=== PATIENT | male | born 1945 | race Caucasian/White ===

== ENCOUNTER 2018-11-26 10:14 | Emergency (ER) | payer OTHER, SELFPAY ==
[2018-11-26 10:15] VITALS: BP 156/73; PULSE 82; RESP 16; TEMP 36.5; O2SAT 96
--- NOTE | 2018-11-26 10:35 | DI.RAD_ITS ---
SYMPTOM/DIAGNOSIS: COUGH, FEVER PA AND LATERAL CHEST: No priors. The heart is normal in size. The lungs are clear. The mediastinal structures and pleura appear intact. CONCLUSION: Normal chest.
--- NOTE | 2018-11-26 10:36 | W.ED.GENAD ---
Discharge Plan Disposition Patient Disposition: HOME Condition: Stable Discharge Details Chief Complaint: Urinary Clinical Impression: Acute UTI Primary Care Provider: JenniferLocal ED Provider: Cory Soriano Home Meds and New Rx's Prescriptions: New cephalexin 500 mg tablet 500 mg PO BID 7 Days Qty: 14 RF: 0 Continued cyclobenzaprine 10 MG tablet 10 mg PO TID PRN PRNQty: 30 RF: 0 metoprolol succinate 50 MG tablet extended release 24 hr 100 mg PO DAILY RF: 0 omeprazole 20 MG tablet,delayed release (DR/EC) 20 mg PO DAILY RF: 0 Eliquis 5 mg Tablet 5 mg PO BID RF: 0 diltiazem HCl 180 mg Tablet Extended Release 24 Hr 180 mg PO DAILY RF: 0 Discharge Instructions Instructions: Urinary Tract Infection in Men (ED) Additional Instructions: Follow-up with your primary care provider in 1 week for reassessment of your symptoms. Otherwise take medication as prescribed and feel free to return to the emergency department for any new or significant worsening of symptoms. Referrals: Primary Care Provider [Outside] - 1 week Discharge Data Discharge Date/Time-TO BE ENTERED AT DEPARTURE: 11/26/18 14:09 Medical Decision Making Patient presenting to the emergency department for chief complaint urinary incontinence, urinary frequency, fever and chills. Patient states this started 4 days ago and initially lasted 1 day with mild improvement but then rapidly returned with continued worsening symptoms. Patient also does state a mild cough with sore throat but states this more seems to be attributed to some postnasal drip. Patient denies any nausea vomiting, flank pain, abdominal pain. Physical exam is unremarkable for any diagnostic findings and patient is not hypotensive, not tachycardic, and afebrile at this time. Plan to check labs, urinalysis, and chest x-ray. Patient had acetaminophen prior to arrival denies any current pain or discomfort. Pending results patient given IV fluids. Review of results show mild leukopenia, mildly increased anion gap and decreased renal function but only slight, otherwise nondiagnostic CMP, UA shows positive for nitrates, blood, leukocyte esterase along with WBCs. Reviewed chest x-ray with radiologist and states no acute findings noted. Patient does state penicillin allergy but states that he was a kid when he had an unknown reaction. Asked question about Keflex and patient thinks he may have been on this in the past but is unsure. Due to patient's fever chills and worsening symptoms 5 days plan to give patient initial dose of ceftriaxone in the emergency department and then place patient on Keflex for urinary tract infection. Return precautions were discussed otherwise I feel the patient is able to be safely discharged. After discussion of diagnosis and plan of care patient has no further needs, questions, or concerns and states clear understanding to return to the emergency department for any worsening symptoms. HPI General Mode of arrival: ambulatory. Date/Time Provider Initiated Documentation: 11/26/18 10:14. Limitations to Documentation: no limitations. Information obtained by: patient. History of Present Illness 73 year old M presents to the emergency department with the chief complaint of Urinary incontinence, fever chills, described as moderate, Quality is described as other (Denies any pain or discomfort), Patient started experiencing this day(s) (4) and it has been constant. No relieving factors improve symptom(s), Patient notes cough. Patient did receive the following treatments prior to arrival, other (Acetaminophen at 8 am) Related Data Home Medications Medication Instructions Recorded Confirmed cyclobenzaprine 10 mg PO TID PRN PRN #30 tab 03/06/16 11/26/18 metoprolol succinate 100 mg PO DAILY 11/26/16 11/26/18 omeprazole 20 mg PO DAILY 11/26/16 11/26/18 Eliquis 5 mg PO BID 11/26/18 11/26/18 cephalexin 500 mg PO BID 7 Days #14 tab 11/26/18 diltiazem HCl 180 mg PO DAILY 11/26/18 11/26/18 Previous Rx's Medication Instructions Recorded cyclobenzaprine 10 mg PO TID PRN PRN #30 tab 03/06/16 cephalexin 500 mg PO BID 7 Days #14 tab 11/26/18 Allergies Allergy/AdvReac Type Severity Reaction Status Date / Time Penicillins AdvReac Unverified 11/26/18 10:22 General Stated Complaint: Urinary TEENA: 3 Review of Systems Constitutional Reports chills, Reports fever(s) and Reports malaise ENT Denies otalgia, Denies nasal congestion, Denies nasal discharge and Reports sore throat Cardiovascular Denies chest pain Respiratory Denies chest congestion and Reports cough Gastrointestinal Denies abdominal pain, Denies nausea and Denies vomiting Genitourinary Reports as per HPI, Denies hematuria, Reports dysuria, Denies flank pain, Reports urinary frequency, Reports urinary incontinence and Reports urinary urgency Neurologic Denies confusion Psychiatric Denies confusion [facility] Social History Smoking/Tobacco Use Status: Never Alcohol Intake: never Drug use: Never Do you feel safe at home: Yes Do you feel safe in your relationship?: Yes Exam Const General: cooperative and no acute distress Orientation: alert, awake and oriented x3 HENMT Head: normal to inspection, normocephalic and atraumatic Ears: external ears normal and TM's normal bilaterally General nose exam: external nose normal and nares normal Face and sinus: normal facial exam Mouth: oral mucosae normal, lip normal and tongue normal Throat: posterior oropharynx normal, tonsils normal and uvula midline Neck Neck: normal visual inspection, full ROM, no lymphadenopathy, no meningeal signs, trachea midline, supple and no anterior neck swelling Resp Effort & Inspection: normal respiratory effort and able to speak in complete sentences Auscultation: clear to auscultation bilaterally Cardio Rate: regular rate and not tachycardic Rhythm: regular rhythm Heart Sounds: S1 normal and S2 normal GI Palpation: nontender Back/Spine/Pelvis Back: no CVA tenderness Neuro General: alert, awake and oriented x3 Extrem General: normal capillary refill Course Vital Signs Temperature 36.5 C 11/26/18 10:15 Pulse 82 11/26/18 10:15 Respiratory Rate 16 11/26/18 10:15 Blood Pressure 156/73 H 11/26/18 10:15 Pulse Oximetry 96 11/26/18 10:15 Temperature 36.5 C 11/26/18 10:15 Temperature Source Skin 11/26/18 10:15 Pulse 82 11/26/18 10:15 Respiratory Rate 16 11/26/18 10:15 Respiratory Effort 11/26/18 10:24 Blood Pressure 156/73 H 11/26/18 10:15 Blood Pressure Position Sitting 11/26/18 10:15 Pulse Oximetry 96 11/26/18 10:15 Oxygen Delivery Method Room Air 11/26/18 10:15 Oxygen Flow Rate 0 11/26/18 10:15 Pain Level 0 11/26/18 10:15
[2018-11-26] MEDS: Normal Saline 1,000 ML 1000 ML IV (11:00)
[2018-11-26 11:14] LABS: ALT 77 U/L (12-78); AST 66 U/L (15-37); Abs Immature Grans 0.02 k/cumm (0.0-0.09); Absolute Basophil Count 0.03 k/cumm (0.0-0.2); Absolute Eosinophil Count 0.09 k/cumm (0.0-0.7); Absolute Lymphocyte Count 0.66 k/cumm (1.2-3.4); Absolute Monocyte Count 0.61 k/cumm (0.11-0.7); Absolute Neutrophil Count 2.77 k/cumm (1.2-6.7); Albumin 3.2 g/dL (3.4-5.0); Alkaline Phosphatase 93 U/L (46-116); Anion Gap 11.9 mmol/L (3-11); BUN 22 mg/dL (7-18); Basophils % 0.7; Bilirubin, Total 1.2 mg/dL (0.2-1.0); CO2 24.1 mmol/L (21.0-32.0); CREATININE 1.51 mg/dL (0.70-1.30); Chloride 104 mmol/L (98-107); Eosinophils % 2.2; Glucose 117 mg/dL (70-100); HCT 43.5 % (40.0-50.0); HGB 15.4 g/dL (13.5-17.5); Immature Grans % 0.5; Lymphocytes % 15.8; Mean Corp. HGB Concentration 35.4 g/dL (32.0-36.0); Mean Corpuscular Hemoglobin 29.6 pg (27.0-33.0); Mean Corpuscular Volume 83.7 fL (80-95); Mean Platelet Volume 11.1 fL (8.0-11.0); Monocytes % 14.6; Neutrophils % 66.2; Platelet Count 155 x1000/uL (130-400); Potassium 3.4 mmol/L (3.5-5.1); Sodium 140 mmol/L (136-145); Total Protein 7.2 g/dL (6.4-8.2); White Blood Cell Count 4.18 k/cumm (4.4-10.8)
[2018-11-26 11:51] VITALS: BP 130/61; PULSE 64; RESP 20; O2SAT 98
[2018-11-26 12:10] LABS: Bilirubin Small (Negative); Blood Large (Negative); Clarity Cloudy (Clear); Glucose Negative (Negative); Ketones Negative (Negative); Leukocyte Esterase Moderate (Negative); Nitrite Positive (Negative); pH 5.5 (5-8)
[2018-11-26 12:30] LABS: Bacteria Many HPF (Negative); C & S Indicated? Yes; Casts Negative LPF (Negative); Crystals Negative HPF (Negative); Mucus Negative (Negative); WBC >50 HPF (0-5)
[2018-11-26] MEDS: cefTRIAXone 1 GM/50 ML BAG IVPB (13:53)
[2018-11-26 13:56] VITALS: BP 114/60; PULSE 79; RESP 18; TEMP 37; O2SAT 98
== END 2018-11-26 14:09 | disposition home or self-care (01) ==
PROVIDERS: Emergency Provider Nurse Practitioner Family
DX: N39.0 Urinary tract infection, site not specified (principal); R05 Cough
CPT/HCPCS: 36415; 80053; 87077; 96361; 96365; 99284; 71046; 81003; 81015; 85025; 87086; 87186; J0696

== ENCOUNTER 2023-08-15 06:23 | Day surgery (SDC) | payer MEDICARE, SELFPAY ==
--- NOTE | 2023-08-15 06:13 | ANES.PREOP_ITS ---
General Info Date of Service Date Performed: 08/15/23 Height: 5 ft 11 in Weight: 95.254 kg Body Mass Index (BMI): 29.2 Surgical Procedure: Operation Date: 08/15/23 07:40 Proposed Procedure Side Surgeon p Cataract Extraction with IOL Implant Right Kale Hess MD Meds Allergies and Home Medications Allergies Allergy/AdvReac Type Severity Reaction Status Date / Time Sulfa (Sulfonamide Allergy Swelling/Ed Verified 08/15/23 06:39 Antibiotics) ya Penicillins AdvReac Other (See Verified 08/15/23 06:39 Comment) Home Medication Medication Instructions Recorded cyclobenzaprine 10 mg tablet 10 mg PO TID PRN PRN #30 tabs 03/06/16 metoprolol succinate 50 mg 100 mg PO BID 11/26/16 tablet,extended release 24 hr omeprazole 20 mg tablet,delayed 20 mg PO DAILY 11/26/16 release apixaban 5 mg tablet (Eliquis) 5 mg PO BID 11/26/18 digoxin 125 mcg (0.125 mg) tablet 0.125 mg PO HS 08/11/23 diltiazem HCl 120 mg 120 mg PO DAILY 08/11/23 capsule,extended release 24 hr (Cartia XT) furosemide 40 mg tablet 40 mg PO DIRECTED 08/11/23 nystatin 100,000 unit/gram topical 1 applic topical BID 08/11/23 powder (Nystop) potassium chloride 10 mEq 10 meq PO DIRECTED 08/11/23 tablet,extended release (Klor-Con) Current Visit Medications: Current Medications Generic Name Dose Route Start Last Admin Trade Name Freq PRN Reason Stop Dose Admin Acetaminophen 1,000 mg 08/15/23 06:00 Acetaminophen 500 Mg Tab PO 09/14/23 05:59 Q4H PRN PRN Balanced Salt Solution 500 ml 08/15/23 06:00 Balanced Salt Soln.-Plus 500 Ml Bag OP 09/14/23 05:59 DIRECTED HAMIDA Miscellaneous Medication 0 ml 08/15/23 06:00 Prednisolone 1%, Moxifloxacin 0.5%, Bromfenac 0.09% 5ml Btl OD 09/14/23 05:59 DIRECTED HAMIDA Miscellaneous Medication 0 ml 08/15/23 06:00 Tropicam./Phenyleph. (1/2.5%) 10 Ml Btl OD 09/14/23 05:59 DIRECTED HAMIDA Tetracaine HCl 0 ml 08/15/23 06:00 Tetracaine 0.5% 4 Ml Btl OD 09/14/23 05:59 DIRECTED [facility] PFS Active Problems Active Problems: Problem Status Onset Code Nuclear age-related cataract, right eye H25.11 Medical History Medical History History of cardioversion Traumatic rupture of biceps tendon Suprapubic abdominal pain Restless leg syndrome PVC (premature ventricular contraction) Gilbert's syndrome Bladder outlet obstruction Bladder stone Benign carcinoid tumor of appendix Venous insufficiency Positive WALTER (antinuclear antibody) Paresthesias in right hand Palpitations JUANCARLOS (obstructive sleep apnea) Obesity Nephrolithiasis Near syncope MVP (mitral valve prolapse) Male stress incontinence Hypertension Esophageal reflux Diastolic heart failure Decreased hearing Cervical spondylosis BPH with urinary obstruction Bladder spasms Cervical spine disease Tachy-thaddeus syndrome Paroxysmal SVT (supraventricular tachycardia) Atrial fibrillation Surgical History Surgical History History of intestinal surgery Cecal resection H/O Spinal surgery Lumbar Hx of appendectomy Hx of cholecystectomy S/P TURP History of ureteroscopy Electrohydrodraulic lithotripsy of calculus of ureter History of esophagogastroduodenoscopy (EGD) H/O hemorrhoidectomy History of cataract surgery 11/2018 History of surgery Excision of cyst History of colonoscopy Tobacco Smoking/Tobacco Use Status: Never Alcohol Alcohol Intake: never Substance Use Substance use: Never Substance use type: does not use Vital Signs and Lab Results Vital Signs Most Recent Vital Signs in EMR: Temp Pulse Resp BP Pulse Ox 36.1 C L 74 16 126/71 98 08/15/23 06:30 08/15/23 06:30 08/15/23 06:30 08/15/23 06:30 08/15/23 06:30 Lab Results Blood Type / Crossmatch: No Data to Display Complete Blood Count: No Data to Display Complete Metabolic Panel: No Data to Display Liver Function Panel: No Data to Display Coagulation Panel: No Data to Display Cardiac Panel: No Data to Display Arterial Blood Gas: No Data to Display Venous Blood Gas: No Data to Display Pancreas Panel: No Data to Display Thyroid Panel: 2 No Data to Display Infectious Disease: No Data to Display Blood Cultures: No Data to Display Toxicology Panel: No Data to Display Anesthesia Assessment and Plan Anesthesia History Personal History: No History of Anesthesia Complications Family History: No Family History of Anesthesia Complications Exercise Tolerance Exercise Tolerance: Metabolic Equivalents>4 Cardiac & Pulmonary Exam Cardiac Exam: Normal S1/S2 Heart Sounds Pulmonary Exam: Clear Bilateral Breath Sounds Implantable Cardiac Device Does patient have a Pacemaker or an ICD?: No Airway Exam Known Difficult Airway: No Mallampati Class: 3 Mouth Opening: Narrow (< 3cm) Thyromental Distance: Less than 3 cm Neck Range of Motion: Full ROM Neck Circumference: Normal Teeth Condition: Normal Dentition ASA Classification ASA Score: ASA 3 Emergency Case?: No NPO Status NPO Status: NPO Clears >2 hours, Solids >8 hours Anesthesia Plan Resuscitation Status: Full Code Anesthesia Technique: MAC Anesthesia Airway Planned: Natural Airway Monitors Used: Standard Monitors Preoperative Comments:: 78 yo male for cataract removal. no MKO Sig PMHx: MVP, HTN, afib/SVT (dilt, apixaban), diastolic dysfunction/failure (furosemide), JUANCARLOS, GERD (omeprazole), cervical spine DJD, never smoker
[2023-08-15 06:30] VITALS: BP 126/71; PULSE 74; RESP 16; TEMP 36.1; O2SAT 98
[2023-08-15 07:08] VITALS: BMI 29.2
[2023-08-15] MEDS: Povidone-Iodine Ophth 30 ML BTL (07:19)
[2023-08-15] MEDS: Tetracaine 0.5% 4 ML BTL OD (07:19)
[2023-08-15] MEDS: Balanced Salt Soln.-PLUS 500 ML BAG OP (07:28)
[2023-08-15] MEDS: Duovisc Viscoelastic System EACH 1 EACH (07:28)
[2023-08-15] MEDS: Lidocaine 1% Pres-Free 5 ML VIAL (07:29)
--- NOTE | 2023-08-15 07:46 | W.PM.DSUDISC ---
Date of service: 08/15/23 Time of Service: 07:46 Discharge Plan Disposition Patient Disposition: Home Discharge Details Attending Provider: Kale Hess Primary Care Provider: No,Local Home Meds and New Rx's Prescriptions: No Action cyclobenzaprine 10 MG tablet 10 mg PO TID PRN PRNQty: 30 0RF metoprolol succinate 50 MG tablet extended release 24 hr 100 mg PO BID omeprazole 20 MG tablet,delayed release (DR/EC) 20 mg PO DAILY digoxin 125 mcg (0.125 mg) tablet 0.125 mg PO HS diltiazem HCl [Cartia XT] 120 mg capsule,extended release 24hr 120 mg PO DAILY furosemide 40 mg tablet 40 mg PO DIRECTED potassium chloride [Klor-Con 10] 10 mEq tablet extended release 10 meq PO DIRECTED nystatin [Nystop] 100,000 unit/gram powder 1 applic topical BID Eliquis 5 mg Tablet 5 mg PO BID Discharge Instructions Stand Alone Forms: DSU Post-Op Cataract, Ramon Moncada (DSU) Discharge Orders Discharge Orders: Discharge Order (Routine); Ordered 08/15/23 Ordered By: Kale Hess DS: Diagnosis Discharge Diagnosis (1) Nuclear age-related cataract, right eye: Status: Resolved
[2023-08-15 07:47] VITALS: BP 125/68; PULSE 79; RESP 18; TEMP 36.2; O2SAT 100
--- NOTE | 2023-08-15 07:47 | ROE_ITS ---
Date of service: 08/15/23 Time of Service: 07:47 Operative Note Operative Note DATE OF PROCEDURE: 08/15/23 PRE-OP DIAGNOSIS: Nuclear cataract, right eye POST-OP DIAGNOSIS: same PROCEDURE: Cataract extraction using phacoemulsification with intraocular lens implant, right eye SURGEON: Kale Hess ANESTHESIA TYPE: Local By Surgeon and MAC Refer to Anesthesia Record ESTIMATED BLOOD LOSS: 0 PATHOLOGY: none sent COMPLICATIONS: None Patient was transported to: same day Patient's condition: stable Implants: Anant & Anant Tecnis Eyhance DIB00 Indications: Progressive visual loss due to cataract, right eye Procedure Description: CATARACT SURGERY OPERATIVE REPORT PREOPERATIVE DIAGNOSIS: 1. Nuclear cataract, right eye POSTOPERATIVE DIAGNOSIS: Same OPERATION: 1. Cataract extraction using phacoemulsification with posterior chamber intraocular lens implant, right eye. IOL: IOL Director Of Assisted Living/Model: Anant & Anant Tecnis Eyhance DIB00 IOL Power: + 19.0 diopters IOL Serial Number: [id number] Optic Diameter: 6.0mm Haptic/Overall Diameter: 13.0mm PHACO INFO: JustinGeni Vision System with OZil and Active Fluidics Cumulative Dispersed Energy (CDE): 10.10 seconds SURGEON: Kale Hess MD, OWEN ANESTHESIA: Monitored Anesthesia Care (MAC), with local sub-tenon's anesthetic infiltration COMPLICATIONS: None SPECIMENS: None INDICATIONS FOR PROCEDURE: The patient is a 78-year-old gentleman with history of myopia who has developed significant nuclear cataract in the right eye. He previously underwent cataract surgery in the left eye 5 years ago with postoperative myopic result, per the patient's choice. He now presents for cataract surgery in the right eye, postoperative refractive target of -2.50 diopters. See office notes for detailed information. PROCEDURE: The correct surgical eye was identified and marked as the right eye and the pupil was dilated in the preoperative area using mydriatics and cycloplegics. The dilated pupil size was 7.0 mm. The patient elected to proceed without oral sedation. The patient was brought to the operating room where cardiopulmonary monitoring was instituted and surgical time-out was performed, confirming the correct operative eye and IOL power. Topical anesthesia was administered and ophthalmic povidone-iodine 5% was instilled into the conjunctival fornices. The radha-ocular area was prepped with Betadine 10% solution and draped in the usual sterile fashion for intraocular surgery, including an aperture drape. A Tegaderm transparent film dressing was cut in half and used to cover the lashes and lid margins. Care was taken to sequester the lashes and lid margins under the Tegaderm dressing. A lid speculum was placed between the lids of the operative eye and the Justin LuxOR Revalia operating microscope was maneuvered into position. Abilio scissors were then used to make a conjunctival buttonhole approximately 6mm posterior to the limbus in the inferonasal quadrant. Blunt dissection was carried out to expose bare sclera, and a blunt-tipped sub-tenon?s anesthesia cannula was introduced and passed posteriorly along the globe where non- preserved plain lidocaine was injected into posterior sub-Tenon?s space. A sideport knife was used to make a paracentesis port. Intraocular phenylephrine/lidocaine was injected into the anterior chamber. The anterior chamber was filled with viscoelastic. A keratome knife was used to c onstruct a 2-plane clear corneal tunnel extending 2.0mm into clear cornea. A flap was raised on the anterior capsule and capsulorhexis forceps were used to complete a continuous curvilinear capsulorhexis of 5.0 mm. Balanced salt solution was then used to perform cortical cleaving hydrodissection and nuclear hydrodelineation until the lens could be freely rotated within the capsular bag. The lens nucleus was then disassembled and removed within the capsular bag and iris plane using phacoemulsification. Residual cortical material was removed using the I/A handpiece. The posterior capsule was carefully polished to remove as much residual lens epithelial cells as safely possible. The capsular bag was then inflated and the anterior chamber deepened with cohesive viscoelastic. The lens implant described above was inserted into the capsular bag using the Anant and Mellissa Simplicity pre- loaded injector. A Kuglen hook was used to dial the IOL into position. Residual viscoelastic was then removed first from posterior to the IOL, then from the anterior chamber using the I/A handpiece. The lens implant was noted to center nicely within the capsular bag. The incisions were stromally hydrated, and the anterior chamber was reformed using BSS. Then 0.5cc of moxifloxacin 1.0mg/ml were injected into the capsular bag and anterior chamber. The incisions were checked with a Weck spear and found to be secure. Several drops of ophthalmic povidone-iodine 5% were then applied to the eye followed by two drops ocombination steroid/NSAID/antibiotic solution. The drapes were removed and a clear plastic protective eye shield was placed over the eye. The patient was then returned to Same Day Surgery in stable condition.
--- NOTE | 2023-08-15 08:01 | W.ANESPOSTOP ---
Postoperative Evaluation Date, Time and Location Date Performed: 08/15/23 Time Performed: 08:02 Patient Location: Day Surgery Unit Vital Signs Most Recent Imported Vital Signs: Most Recent Vital Signs Temp Pulse Resp BP Pulse Ox 36.2 C L 79 18 125/68 100 08/15/23 07:47 08/15/23 07:47 08/15/23 07:47 08/15/23 07:47 08/15/23 07:47 Pain Score Most Recent Pain Score: Most Recent Pain Score Pain Level 0 08/15/23 07:47 Assessment Mental Status: Awake (Alert & Oriented to Patient Baseline) Airway and Respiratory Function: Patent airway with normal (patient baseline) respiratory exam Cardiovascular Function: Hemodynamically Stable Hydration Status: Adequately Hydrated Nausea & Vomiting: No Nausea or Vomiting Pain: Pt. Denies Any Pain Peripheral Nerve Block: Patient did not receive a nerve block
== END 2023-08-15 08:14 | disposition home or self-care (01) ==
LOC: SUR 06:24
PROVIDERS: Visit Provider Ophthalmology
PROC: (CPT 66984; principal; 2023-08-15 07:30)
DX: H25.11 Age-related nuclear cataract, right eye (principal); I10 Essential (primary) hypertension; I47.10 Supraventricular tachycardia, unspecified; G47.33 Obstructive sleep apnea (adult) (pediatric); Z98.42 Cataract extraction status, left eye
CPT/HCPCS: 66984; 00123; V2632; J2003

== ENCOUNTER 2023-12-08 01:30 | Emergency (ER) | payer MEDICARE, SELFPAY ==
[2023-12-08] VITALS (16 sets, daily range): BP systolic 138–174; BP diastolic 61–76; PULSE 61–88; RESP 7–23; TEMP 36; O2SAT 98–100
--- NOTE | 2023-12-08 01:15 | RT.EKG_ITS ---
APPROVED REPORT Exam: Resting ECG Reason for Exam: chest pain Patient Location: E HR:74 bpm ECG Measurements Heart Rate 74 AXIS IA [id number] P [id number] QRSd 96 QRS 74 QT 342 T -61 QTc 380 Conclusion Atrial fibrillation...V-rate 53- 87, irreg A-activity Normal Sloan Nonspecific ST-T changes
--- NOTE | 2023-12-08 01:23 | ED.GENADUL_ITS ---
Discharge Plan Disposition Patient Disposition: Home Condition: Good Discharge Details Clinical Impression: Epigastric pain Primary Care Provider: Unknown,Unknown ED Provider: Fidel Herbert [place] and New Rx's Prescriptions: Continued acetaminophen 500 mg capsule 500 mg PO Q6H PRN cyclobenzaprine 10 MG tablet 10 mg PO TID PRN PRNQty: 30 0RF metoprolol succinate 50 MG tablet extended release 24 hr 100 mg PO BID omeprazole 20 MG tablet,delayed release (DR/EC) 20 mg PO DAILY digoxin 125 mcg (0.125 mg) tablet 0.125 mg PO HS diltiazem HCl [Cartia XT] 120 mg capsule,extended release 24hr 120 mg PO DAILY furosemide 40 mg tablet 40 mg PO DAILY nystatin [Nystop] 100,000 unit/gram powder 1 applic topical BID PRN potassium chloride [Klor-Con 10] 10 mEq tablet extended release 10 meq PO DAILY Eliquis 5 mg Tablet 5 mg PO BID Discharge Instructions Instructions: Abdominal Pain, Adult ED Additional Instructions: You were seen for epigastric/abdominal pain likely associated with the ant ibiotic you are taking for your dental problem. Given that there is only a couple more days of the antibiotic consider using Mylanta short-term for further abdominal discomfort. To continue your other medications. Follow-up with your dentist and primary care. You should return to the ED if you have new or worsening abdominal pain, chest pain, shortness of breath, syncope, vomiting, other concerns. HPI General Mode of arrival: EMS . Date/Time Provider Initiated Documentation: 12/08/23 01:42 . Limitations to Documentation: no limitations . Information obtained by: patient and RN notes reviewed . HPI Narrative: Patient presenting to ED with complaint of abdominal pain and bloating. Patient reports that yesterday and again tonight after taking the antibiotic he was placed on by his dentist last week he developed pain, discomfort, indigestion. Despite EMS and nursing notes reporting chest pain patient denies this to me. Points to the periumbilical and epigastric area as to where he had his pain and discomfort. He had a sharp stabbing pain on the right upper quadrant tonight. He got a little diaphoretic and sweaty which concerned him. However, he denies having any type of chest pain, pressure, discomfort. There is no radiation of symptoms to the back, neck, arms. He did not feel short of breath. The sharp pain in the right upper quadrant was not worse with breathing. Denies any fever. Has a chronic unchanged cough. Has chronic unchanged swelling to the lower extremities. Had some very mild nausea but no vomiting. He is passing gas and having normal bowel movements. He has had no diarrhea. He has tooth, jaw, neck pain which has been present for some time and is now being managed by his dentist. Related Data Home Medications ?Medication ?Instructions ?Recorded ?Confirmed cyclobenzaprine 10 mg tablet 10 mg PO TID PRN PRN #30 tabs 03/06/16 12/08/23 metoprolol succinate 50 mg 100 mg PO BID 11/26/16 12/08/23 tablet,extended release 24 hr omeprazole 20 mg tablet,delayed 20 mg PO DAILY 11/26/16 12/08/23 release apixaban 5 mg tablet (Eliquis) 5 mg PO BID 11/26/18 12/08/23 digoxin 125 mcg (0.125 mg) tablet 0.125 mg PO HS 08/11/23 12/08/23 diltiazem HCl 120 mg 120 mg PO DAILY 08/11/23 12/08/23 capsule,extended release 24 hr (Cartia XT) acetaminophen 500 mg capsule 500 mg PO Q6H PRN 12/02/23 12/08/23 furosemide 40 mg tablet 40 mg PO DAILY 12/02/23 12/08/23 nystatin 100,000 unit/gram topical 1 applic topical BID PRN 12/02/23 12/08/23 powder (Nystop) potassium chloride 10 mEq 10 meq PO DAILY 12/02/23 12/08/23 tablet,extended release (Klor-Con) Previous Rx's ?Medication ?Instructions ?Recorded cyclobenzaprine 10 mg tablet 10 mg PO TID PRN PRN #30 tabs 03/06/16 Allergies Allergy/AdvReac Type Severity Reaction Status Date / Time Sulfa (Sulfonamide Allergy Swelling/Ed Verified 12/08/23 01:39 Antibiotics) ya Penicillins AdvReac Other (See Verified 12/08/23 01:39 Comment) General TEENA: 3 Review of Systems Narrative: per HPI Exam Narrative Exam Narrative: Const: WDWN elderly male in NAD. VS per triage. HEENT: NC/AT. Normal facial exam. Neck: Supple. Trachea midline. Lungs: Normal respiratory effort. Cor: Irr/irr w good radial pulses. GI: Soft/ND/NT. Neuro: A+O x 3. Normal speech, mentation. Cranial nerves II - XII grossly intact. No gross motor or sensory deficit. Ext: No C/C. BLE edema 2+ without tenderness. Medical Decision Making Patient presenting to ED with complaint of indigestion. Patient denies experiencing chest pain, pressure, discomfort to me. Everything was periumbilical to epigastric and right upper quadrant. Did have some associated sweatiness but denies any type of shortness of breath, radiation of pain, lightheadedness and only had mild nausea. Currently has some mild periumbilical discomfort and bloating. His EKG obtained from triage shows A-fib that is rate controlled with normal axis and nonspecific ST changes. His A-fib is chronic and he is on anticoagulation for this. Symptoms are occurring after taking clindamycin. Quite likely that it is related to the antibiotic use. I am not suspecting this to be a cardiopulmonary process. I will give IV famotidine and oral lidocaine with Maalox. Will obtain abdominal labs and reevaluate. Patient laboratory studies are unremarkable. Total bili is elevated but he has a history of Gilbert's disease. Patient is feeling better after the GI cocktail and IV famotidine. He reports only having 2 more days of the antibiotic. He is taking omeprazole. May be worse using short-term antacid like Mylanta if similar recurrent symptoms while taking the antibiotic. He is scheduled for root canal surgery December 24. Does not feel like the antibiotic is helping his dental pain that much. Unfortunately really should not be on nonsteroidals on a regular basis. He has been taking acetaminophen. Encouraged to follow-up with his dentist and primary care. Return precautions provided. Discharged home in good condition. Lab Data Lab results reviewed: Yes I reviewed the patient's lab results. Lab results narrative: see [facility] ECG Data Attestation: I personally reviewed and interpreted this ECG (s) as follows: Prior ECG tracings: not available for review Interpretation: see [facility] All Active Problems (Updated 12/08/23 @ 02:39 by Fidel Herbert MD) Epigastric pain (Acute) Positive WALTER (antinuclear antibody) (Acute) PVC (premature ventricular contraction) (Acute) Medical History History of cardioversion Traumatic rupture of biceps tendon Restless leg syndrome Gilbert's syndrome Bladder outlet obstruction Bladder stone Benign carcinoid tumor of appendix Venous insufficiency JUANCARLOS (obstructive sleep apnea) Obesity Nephrolithiasis MVP (mitral valve prolapse) Male stress incontinence Hypertension Esophageal reflux Diastolic heart failure Decreased hearing Cervical spondylosis BPH with urinary obstruction Bladder spasms Cervical spine disease Tachy-thaddeus syndrome Paroxysmal SVT (supraventricular tachycardia) Atrial fibrillation Surgical History History of intestinal surgery Cecal resection H/O Spinal surgery Lumbar Hx of appendectomy Hx of cholecystectomy S/P TURP History of ureteroscopy Electrohydrodraulic lithotripsy of calculus of ureter History of esophagogastroduodenoscopy (EGD) H/O hemorrhoidectomy History of cataract surgery 11/2018 History of surgery Excision of cyst History of colonoscopy Social History Smoking/Tobacco Use Status: Never Smoking risk assessment performed?: Yes Alcohol Intake: never Drug use: Never Substance use type: does not use Housing: house Do you feel safe at home: Yes Do you feel safe in your relationship?: Yes
[2023-12-08 01:48] LABS: Abs Immature Grans 0.02 10^3/uL (0.0-0.06); Absolute Basophil Count 0.06 10^3/uL (0.0-0.2); Absolute Eosinophil Count 0.18 10^3/uL (0.0-0.7); Absolute Lymphocyte Count 2.64 10^3/uL (1.2-3.4); Absolute Monocyte Count 0.54 10^3/uL (0.1-0.8); Absolute Neutrophil Count 3.24 10^3/uL (1.2-6.7); Basophils % 0.9 %; Eosinophils % 2.7 %; HCT 50.5 % (40.0-50.0); HGB 17.2 g/dL (13.5-17.5); Immature Grans % 0.3 %; Lymphocytes % 39.5 %; MCH 30.4 pg (27.0-33.0); MCHC 34.1 % (32.0-36.0); MCV 89 fL (80-95); MPV 10.4 fL (8.0-11.0); Monocytes % 8.1 %; Neutrophils % 48.5 %; Platelet Count 219 10^3/uL (130-400); RBC 5.66 10^6/uL (4.36-5.78); RDW 15.5 % (11.8-14.1); RDW-SD 50.3 fL; WBC 6.68 10^3/uL (4.4-10.8)
[2023-12-08] MEDS: FAMOTIDINE 20 MG in Normal Saline 100 ML 400 MG IVPB (01:59)
[2023-12-08 02:11] LABS: ALT 11 U/L (16-63); AST 13 U/L (15-37); Albumin 4.1 g/dL (3.4-5.0); Alkaline Phosphatase 87 U/L (46-116); Anion Gap 9.5 mmol/L (3-11); BUN 18 mg/dL (7-18); CO2 29.5 mmol/L (21.0-32.0); CREATININE 1.3 mg/dL (0.70-1.30); Chloride 106 mmol/L (98-107); Estimated GFR 55.88 (mL/min/1.73m2); Glucose 134 mg/dL (74-106); Lipase 13 U/L (16-77); Potassium 3.8 mmol/L (3.5-5.1); Sodium 145 mmol/L (136-145); Total Protein 7.5 g/dL (6.4-8.2)
[2023-12-08 02:17] LABS: Calcium 9.3 mg/dL (8.5-10.1)
== END 2023-12-08 02:37 | disposition home or self-care (01) ==
PROVIDERS: Emergency Provider Emergency Medicine
DX: R10.13 Epigastric pain (principal); I48.91 Unspecified atrial fibrillation; E80.4 Gilbert syndrome; I11.0 Hypertensive heart disease with heart failure; I50.32 Chronic diastolic (congestive) heart failure; Z79.01 Long term (current) use of anticoagulants
CPT/HCPCS: 36415; 80053; 83690; 93005; 96374; 99284; 85025; 93010; 99283

== ENCOUNTER 2024-02-03 08:23 | Outpatient (CLI) | payer MEDICARE, SELFPAY ==
--- NOTE | 2024-02-03 08:15 | RT.EKG_ITS ---
APPROVED REPORT Exam: Resting ECG Reason for Exam: afib Patient Location: O HR:92 bpm ECG Measurements Heart Rate 92 AXIS MA [id number] P [id number] QRSd 97 QRS 73 QT 334 T -39 QTc 414 Conclusion Atrial fibrillation...V-rate 61-120, irreg A-activity Nondiagnostic ST-T abnormalities Baseline wander in lead(s) V1
== END 2024-02-03 08:24 | disposition home or self-care (01) ==
LOC: DI.CARD 08:24
PROVIDERS: PCP Family Medicine; Visit Provider Internal Medicine Cardiovascular Disease
DX: I48.91 Unspecified atrial fibrillation (principal); I49.3 Ventricular premature depolarization
CPT/HCPCS: 93010

== ENCOUNTER → 2024-02-03 12:57 | Outpatient (BNVA) | payer MEDICARE, SELFPAY | PROVIDERS: PCP Family Medicine; Referring Provider Family Medicine; Visit Provider Internal Medicine Cardiovascular Disease | DX: I48.11 Longstanding persistent atrial fibrillation (principal); I10 Essential (primary) hypertension; R94.31 Abnormal electrocardiogram [ECG] [EKG] | CPT/HCPCS: 93005; 99214 ==

== ENCOUNTER → 2024-02-10 13:28 | Outpatient (BNVA) | payer MEDICARE, SELFPAY | PROVIDERS: PCP Family Medicine; Referring Provider Family Medicine; Visit Provider Surgery | DX: I48.91 Unspecified atrial fibrillation (principal); Z12.11 Encounter for screening for malignant neoplasm of colon; Z86.0100 Personal history of colon polyps, unspecified | CPT/HCPCS: 99214 ==

== ENCOUNTER → 2024-04-20 13:02 | Outpatient (BNVA) | payer MEDICARE, SELFPAY | PROVIDERS: PCP Family Medicine; Referring Provider Family Medicine; Visit Provider Podiatrist | DX: L60.0 Ingrowing nail (principal); B35.1 Tinea unguium; L60.3 Nail dystrophy; M79.671 Pain in right foot; M79.672 Pain in left foot | CPT/HCPCS: 11730; 11732 ==

== ENCOUNTER → 2024-05-19 13:56 | Outpatient (BNVA) | payer MEDICARE, SELFPAY | PROVIDERS: PCP Family Medicine; Referring Provider Family Medicine; Visit Provider Podiatrist | DX: I87.2 Venous insufficiency (chronic) (peripheral) (principal); L60.0 Ingrowing nail; B35.1 Tinea unguium; L60.3 Nail dystrophy; M79.671 Pain in right foot; M79.672 Pain in left foot; R60.0 Localized edema | CPT/HCPCS: 99213 ==

== ENCOUNTER 2024-05-24 22:12 | Outpatient (REF) | payer MEDICARE, SELFPAY ==
[2024-05-24 21:22] LABS: Bilirubin Moderate (Negative); Blood Large (Negative); Clarity Cloudy (Clear); Glucose Negative (Negative); Ketones 15 mg/dL (Negative); Leukocyte Esterase Small (Negative); Nitrite Positive (Negative); Specific Gravity >= 1.030 (1.005-1.025); pH 5.5 (5-8)
[2024-05-24 21:29] LABS: C & S Indicated? Yes
[2024-05-24 21:30] LABS: RBC >50 HPF (0-2); WBC >50 HPF (0-5)
== END 2024-05-24 22:13 | disposition home or self-care (01) ==
LOC: LBN 22:12
PROVIDERS: PCP Family Medicine; Visit Provider Nurse Practitioner Family
DX: R39.9 Unspecified symptoms and signs involving the genitourinary system (principal); N30.01 Acute cystitis with hematuria
CPT/HCPCS: 87077; 81003; 81015; 87086; 87186

== ENCOUNTER 2024-05-25 02:34 | Inpatient (IN) | payer MEDICARE, SELFPAY ==
[2024-05-25] VITALS (48 sets, daily range): BP systolic 100–139; BP diastolic 35–79; PULSE 74–153; RESP 12–35; TEMP 36.4–39.4; O2SAT 92–98
--- NOTE | 2024-05-25 02:15 | RT.EKG_ITS ---
APPROVED REPORT Exam: Resting ECG Reason for Exam: fever, uti, sepsis Patient Location: E HR:128 bpm ECG Measurements Heart Rate 128 AXIS SC [id number] P [id number] QRSd 91 QRS 81 QT 284 T -77 QTc 415 Conclusion Atrial fibrillation...V-rate 82-169, irreg A-activity no STEMI
[2024-05-25] MEDS: Normal Saline 1,000 ML 1000 ML IV ×2 (02:30→03:35)
[2024-05-25 02:39] LABS: BE (Venous) 1 mmol/L (-2-3); HCO3 (Venous) 26 mmol/L (23-28); O2 Sat (Venous) 31 %; TCO2 (Venous) 23 mmol/L (24-29); pCO2 (Venous) 39 mmHg (41-51); pH (Venous) 7.43 (7.31-7.41); pO2 (Venous) 17 mmHg
[2024-05-25] MEDS: levoFLOXacin 750 MG/150 ML BAG 100 MG IVPB (02:39)
[2024-05-25 02:43] LABS: Lactate 2.2 mmol/L (<or=2.0)
[2024-05-25] MEDS: ACETAMINOPHEN 1,000 MG/100 ML BAG 400 MG IVPB (02:43)
[2024-05-25 02:50] LABS: Abs Immature Grans 0.07 10^3/uL (0.0-0.06); Absolute Basophil Count 0.02 10^3/uL (0.0-0.2); Absolute Eosinophil Count 0.01 10^3/uL (0.0-0.7); Absolute Lymphocyte Count 0.42 10^3/uL (1.2-3.4); Absolute Monocyte Count 0.58 10^3/uL (0.1-0.8); Absolute Neutrophil Count 7.01 10^3/uL (1.2-6.7); Basophils % 0.2 %; Eosinophils % 0.1 %; HCT 47.8 % (40.0-50.0); HGB 16.5 g/dL (13.5-17.5); Immature Grans % 0.9 %; Lymphocytes % 5.2 %; MCH 30.3 pg (27.0-33.0); MCHC 34.5 % (32.0-36.0); MCV 88 fL (80-95); MPV 11.2 fL (8.0-11.0); Monocytes % 7.2 %; Neutrophils % 86.4 %; Platelet Count 162 10^3/uL (130-400); RBC 5.45 10^6/uL (4.36-5.78); RDW 14.8 % (11.8-14.1); RDW-SD 47.9 fL; WBC 8.11 10^3/uL (4.4-10.8)
[2024-05-25] MEDS: LINEZOLID 600 MG/300 ML BAG 300 MG IVPB (02:54)
[2024-05-25 02:57] LABS: INR 1.2 (0.9-1.1); PTT Activated 33.8 sec (20.6-30.2); Prothrombin Time 11.9 sec (9.1-11.1)
[2024-05-25 02:58] LABS: ALT 32 U/L (16-63); AST 52 U/L (15-37); Albumin 3.2 g/dL (3.4-5.0); Alkaline Phosphatase 97 U/L (46-116); Anion Gap 9.3 mmol/L (3-11); BUN 24 mg/dL (7-18); Bilirubin, Total 2.84 mg/dL (0.2-1.0); CO2 27.7 mmol/L (21.0-32.0); CREATININE 1.6 mg/dL (0.70-1.30); Calcium 9.3 mg/dL (8.5-10.1); Chloride 102 mmol/L (98-107); Estimated GFR 43.29 (mL/min/1.73m2); Glucose 182 mg/dL (74-106); Sodium 139 mmol/L (136-145); Total Protein 7.2 g/dL (6.4-8.2)
[2024-05-25 03:02] LABS: Clarity Turbid (Clear)
[2024-05-25 03:08] LABS: Procalcitonin 1.26 ng/mL
[2024-05-25 03:21] LABS: Specific Gravity 1.025 (1.005-1.025)
--- NOTE | 2024-05-25 03:22 | DI.RAD_ITS ---
Exam(s) XR PORTABLE CHEST AP EXAM: XR PORTABLE CHEST AP CLINICAL HISTORY: sepsis TECHNIQUE: 2D digital imaging was performed of the chest. One image was obtained. An AP view was ob tained. COMPARISON: CR XR CHEST 2V PA LATERAL from 11/26/2018 FINDINGS: MEDIASTINUM: Normal. HEART: Normal. PULMONARY VASCULATURE: Normal. LUNGS: Clear. PLEURAL SPACE: No pleural effusion or pneumothorax. BONE:Within normal limits for the patient's age. OTHER FINDINGS:Normal. IMPRESSION: No acute pulmonary findings. DATA REPOSITORY: RADIATION DOSE DELIVERED:
[2024-05-25 03:27] LABS: C & S Indicated? Yes; RBC >50 HPF (0-2)
--- NOTE | 2024-05-25 03:29 | DI.VRAD_ITS ---
PROCEDURE INFORMATION: Exam: XR Chest Exam date and time: 05/25/2024 3:19 AM Age: 79 years old Clinical indication: Other: Sepsis TECHNIQUE: Imaging protocol: Radiologic exam of the chest. Views: 1 view. COMPARISON: CR XR CHEST 2V PA LATERAL 11/26/2018 12:26 PM FINDINGS: Lungs: Unremarkable. No consolidation. Pleural spaces: Unremarkable. No pleural effusion. No pneumothorax. Heart/Mediastinum: Unremarkable. No cardiomegaly. Bones/joints: Unremarkable. IMPRESSION: No acute findings. Dictated and Authenticated by: Jeremi Luis MD. Orderin Shonda Leiva MD
--- NOTE | 2024-05-25 03:33 | ED.GENADUL_ITS ---
Discharge Plan Disposition Patient Disposition: Admit to [facility] Condition: Serious Discharge Details Clinical Impression: Sepsis due to urinary tract infection Primary Care Provider: Eric Rodriguez ED Provider: Abbie Merchant Home Meds and New Rx's Prescriptions: No Action acetaminophen 500 mg capsule 500 mg PO Q6H PRN polyethylene glycol 3350 17 gram/dose powder 238 g PO ONCE Qty: 238 0RF Rx Instructions: take per colonoscopy instructions bisacodyl [Dulcolax (bisacodyl)] 5 mg tablet,delayed release (DR/EC) 5 mg PO ONCE Qty: 4 0RF Rx Instructions: take per colonoscopy instructions metoprolol succinate 100 mg tablet extended release 24 hr 100 mg PO BID ketoconazole 2 % cream 1 applic topical DAILY Qty: 120 6RF Rx Instructions: Apply to toenails once daily nitrofurantoin monohyd/m-cryst [Macrobid] 100 mg capsule 100 mg PO Q12H 7 Days Qty: 14 0RF Rx Instructions: must administer with a meal/food. Take 1 pill every 12 hours x 5 days Eliquis 5 mg tablet 5 mg PO BID Qty: 180 3RF diltiazem HCl [Cartia XT] 120 mg capsule,extended release 24hr 120 mg PO DAILY Qty: 90 3RF potassium chloride [Klor-Con 10] 10 mEq tablet extended release 10 meq PO DAILY Qty: 90 3RF omeprazole 20 MG tablet,delayed release (DR/EC) 20 mg PO DAILY digoxin 125 mcg (0.125 mg) tablet 0.125 mg PO HS furosemide 40 mg tablet 40 mg PO DAILY nystatin [Nystop] 100,000 unit/gram powder 1 applic topical BID PRN HPI General Mode of arrival: EMS . Date/Time Provider Initiated Documentation: 05/25/24 02:37 . Limitations to Documentation: no limitations . Information obtained by: patient and EMS . HPI Narrative: 79yo M with hx [place], HTN, diastolic HF, afib on eliquis, presenting via EMS for generalized weakness and fall. Has had UTI symptoms for 4-5 days, went to yesterday and was told he has a UTI but was unable to vegetable picker antibiotics. This evening while in bed he tried to get up to the bathroom and was unable to get out of bed, slid slowly off the edge of the bed and onto the floor. Did not strike his head, denies any pain or injury from the event. Was able to get himself back into bed but not walk to the bathroom. Feels generally unwell and weak all over. Not sure about fevers. No vomiting, abdominal pain, chest pain, shortness of breath, or other concerns. Related Data Home Medications ?Medication ?Instructions ?Recorded ?Confirmed omeprazole 20 mg tablet,delayed 20 mg PO DAILY 11/26/16 05/25/24 release digoxin 125 mcg (0.125 mg) tablet 0.125 mg PO HS 08/11/23 05/25/24 acetaminophen 500 mg capsule 500 mg PO Q6H PRN 12/02/23 05/25/24 furosemide 40 mg tablet 40 mg PO DAILY 12/02/23 05/25/24 nystatin 100,000 unit/gram topical 1 applic topical BID PRN 12/02/23 05/25/24 powder (Nystop) metoprolol succinate 100 mg 100 mg PO BID 02/05/24 05/25/24 tablet,extended release 24 hr bisacodyl 5 mg tablet,delayed 5 mg PO ONCE colonscopy bowel prep 02/10/24 05/25/24 release (Dulcolax (bisacodyl)) #4 tabs polyethylene glycol 3350 17 238 g PO ONCE colonoscopy prep 02/10/24 05/25/24 gram/dose oral powder #238 grams apixaban 5 mg tablet (Eliquis) 5 mg PO BID #180 tabs 04/05/24 05/25/24 diltiazem HCl 120 mg 120 mg PO DAILY #90 caps 04/05/24 05/25/24 capsule,extended release 24 hr (Cartia XT) potassium chloride 10 mEq 10 meq PO DAILY #90 tabs 04/05/24 05/25/24 tablet,extended release (Klor-Con) ketoconazole 2 % topical cream 1 applic topical DAILY #120 grams 04/20/24 05/25/24 nitrofurantoin 100 mg PO Q12H 7 days #14 caps 05/24/24 05/25/24 monohydrate/macrocrystals 100 mg capsule (Macrobid) Previous Rx's ?Medication ?Instructions ?Recorded bisacodyl 5 mg tablet,delayed 5 mg PO ONCE colonscopy bowel prep 02/10/24 release (Dulcolax (bisacodyl)) #4 tabs polyethylene glycol 3350 17 238 g PO ONCE colonoscopy prep 02/10/24 gram/dose oral powder #238 grams apixaban 5 mg tablet (Eliquis) 5 mg PO BID #180 tabs 04/05/24 diltiazem HCl 120 mg 120 mg PO DAILY #90 caps 04/05/24 capsule,extended release 24 hr (Cartia XT) potassium chloride 10 mEq 10 meq PO DAILY #90 tabs 04/05/24 tablet,extended release (Klor-Con) ketoconazole 2 % topical cream 1 applic topical DAILY #120 grams 04/20/24 nitrofurantoin 100 mg PO Q12H 7 days #14 caps 05/24/24 monohydrate/macrocrystals 100 mg capsule (Macrobid) Allergies Allergy/AdvReac Type Severity Reaction Status Date / Time Sulfa (Sulfonamide Allergy Swelling/Ed Verified 05/24/24 15:23 Antibiotics) ya Penicillins AdvReac Other (See Verified 05/24/24 15:23 Comment) General Stated Complaint: Urinary TEENA: 3 Review of Systems Narrative: see HPI Exam Narrative Exam Narrative: General: Alert, in no acute distress. Head: Normocephalic, atraumatic Neck: Trachea midline, ?Neck supple. ENT: ?Slightly dry MM Cardiac: ?Tachycardiac, irregular, no murmurs appreciated Resp: No respiratory distress. CTAB. Abd: ?Soft, non-distended, nontender : ?No suprapubic tenderness. No CVA tenderness. Extremities: ?No deformities.? No peripheral edema. Neuro: ? GCS 15.? PERRL.? EOMI.? Fluent speech, no dysarthria. Motor- 4/5 strength symmetric bilateral upper and lower extremities Sensation- ?Intact to light touch and symmetric multiple dermatomes including upper and lower extremities Course Vital Signs Vital signs: Vital Signs Temperature 39.4 C H 05/25/24 02:22 Pulse 97 H 05/25/24 02:22 Respiratory Rate 22 05/25/24 02:22 Pulse Oximetry 95 05/25/24 02:22 Temperature 39.4 C H 05/25/24 02:22 Temperature Source Tympanic 05/25/24 02:22 Pulse 146 H 05/25/24 02:50 Pulse 116 H 05/25/24 02:50 Respiratory Rate 22 05/25/24 02:50 Blood Pressure 108/65 05/25/24 02:46 Blood Pressure Mean 81 05/25/24 02:46 Blood Pressure Position Supine 05/25/24 02:22 Pulse Oximetry 97 05/25/24 02:50 Oxygen Delivery Method Room Air 05/25/24 02:22 Oxygen Flow Rate 0 05/25/24 02:22 Lab/Test Results Lab/Test Results: 05/25/24 02:51 Urine - Reflex from Ua Urine Culture - Pending 05/25/24 02:37 Blood Blood Culture - Pending 05/25/24 02:30 Blood Blood Culture - Pending Laboratory Tests Range/Units 05/25/24 05/25/24 02:30 02:51 WBC (4.4-10.8) 10^3/uL 8.11 RBC (4.36-5.78) 10^6/uL 5.45 Hgb (13.5-17.5) g/dL 16.5 Hct (40.0-50.0) % 47.8 MCV (80-95) fL 88 MCH (27.0-33.0) pg 30.3 MCHC (32.0-36.0) % 34.5 RDW (11.8-14.1) % 14.8 H Plt Count (130-400) 10^3/uL 162 MPV (8.0-11.0) fL 11.2 H Immature Gran % % 0.9 Neutrophils % % 86.4 Lymphocytes % % 5.2 Monocytes % % 7.2 Eosinophils % % 0.1 Basophils % % 0.2 Nucleated RBC % (0.0-0.3) % 0.0 Absolute Neutrophils (1.2-6.7) 10^3/uL 7.01 H Absolute Lymphocytes (1.2-3.4) 10^3/uL 0.42 L Absolute Monocytes (0.1-0.8) 10^3/uL 0.58 Absolute Eosinophils (0.0-0.7) 10^3/uL 0.01 Absolute Basophils (0.0-0.2) 10^3/uL 0.02 PT (9.1-11.1) sec 11.9 H INR (0.9-1.1) 1.2 H APTT (20.6-30.2) sec 33.8 H VBG pH (7.31-7.41) 7.43 H VBG pCO2 (41-51) mmHg 39 L VBG pO2 mmHg 17 VBG HCO3 (23-28) mmol/L 26 VBG Total CO2 (24-29) mmol/L 23 L VBG O2 Saturation % 31 VBG Base Excess (-2-3) mmol/L 1 VBG Lactate (<or=2.0) mmol/L 2.2 H* Sodium (136-145) mmol/L 139 Potassium (3.5-5.1) mmol/L 4.0 Chloride (98-107) mmol/L 102 Carbon Dioxide (21.0-32.0) mmol/L 27.7 Anion Gap (3-11) mmol/L 9.3 BUN (7-18) mg/dL 24 H Creatinine (0.70-1.30) mg/dL 1.6 H Est GFR (CKD-EPI 2020) (mL/min/1.73m2) 43.29 Glucose (74-106) mg/dL 182 H Calcium (8.5-10.1) mg/dL 9.3 Total Bilirubin (0.2-1.0) mg/dL 2.84 H AST (15-37) U/L 52 H ALT (16-63) U/L 32 Alkaline Phosphatase (46-116) U/L 97 Total Protein (6.4-8.2) g/dL 7.2 Albumin (3.4-5.0) g/dL 3.2 L Procalcitonin ng/mL 1.26 Urine Color (Yellow) Red Urine Clarity (Clear) Turbid Urine pH (5-8) Ur Specific [place] (1.005-1.025) 1.025 Urine Protein (Neg-Trace) mg/dL Urine Ketones (Negative) mg/dL Urine Blood (Negative) Urine Nitrite (Negative) Urine Bilirubin (Negative) Urine Urobilinogen (Up to 0.2) mg/dL Ur Leukocyte Esterase (Negative) Urine RBC (0-2) HPF >50 H Urine WBC (0-5) HPF Ur Epithelial Cells Not Applicable Urine Crystals Not Applicable Urine Bacteria Not Applicable Urine Mucus Not Applicable Ur Culture Indicated? Yes Urine Glucose (Negative) mg/dL Medical Decision Making 79yo M with hx [place], HTN, diastolic HF, afib on eliquis, presenting via EMS for generalized weakness and concern for UTI. Has had UTI symptoms for 4-5 days, went to yesterday and was told he has a UTI but was unable to vegetable picker antibiotics, now with generalized weakness. This evening unable to get out of bed and slid slowly on to the floor. No HS. Tachycardiac 120's-140's and febrile on arrival. On exam appears much younger than stated age. Has genera lized weakness, no focal weakness on exam. Reliable narrator and denies HS; would not get CT imaging. Concerned for sepsis, likely urinary given history. Will treat with 2L IVFB and broad spectrum antibiotics, tylenol, while awaiting results of workup. -EKG afib, rate 120's, no ST segment or T wave abnormalities to suggest occlusive MO. -Labs reviewed as below, CBC reassuring with no leukocytosis, CMP with no actionable abnormalities (does have elevated bili at ~2.8, consistent with Gilbert's), VBG reassuring with no acidosis, procal equivocal at 1.2 and initial lactate elevated at 2.2. UA difficult to interpret 2/t amount of RBC (cath specimen) but suggestive of infection, UA from 05/24 reviewed and +nitrate. Sent for culture. -CXR independently reviewed; no pneumonia on my view, radiology read with no acute findings. On reassessment HR improving to 90's-110's. Repeat lactate after fluids normalized. Trial ambulation failed. Discussed with [facility] hospitalist Dr. Long; pt accepted to medicine service. Awaiting admission orders and transfer to the floor. Imaging Data Radiologic Study: Imaging: X-Ray Radiologist's impression: IMPRESSION: No acute findings Lab Data Lab results reviewed: Yes I reviewed the patient's lab results. Labs: 05/25/24 02:51 Urine - Reflex from Ua Urine Culture - Pending 05/25/24 02:37 Blood Blood Culture - Pending 05/25/24 02:30 Blood Blood Culture - Pending Laboratory Tests Range/Units 05/25/24 05/25/24 02:30 02:51 WBC (4.4-10.8) 10^3/uL 8.11 RBC (4.36-5.78) 10^6/uL 5.45 Hgb (13.5-17.5) g/dL 16.5 Hct (40.0-50.0) % 47.8 MCV (80-95) fL 88 MCH (27.0-33.0) pg 30.3 MCHC (32.0-36.0) % 34.5 RDW (11.8-14.1) % 14.8 H Plt Count (130-400) 10^3/uL 162 MPV (8.0-11.0) fL 11.2 H Immature Gran % % 0.9 Neutrophils % % 86.4 Lymphocytes % % 5.2 Monocytes % % 7.2 Eosinophils % % 0.1 Basophils % % 0.2 Nucleated RBC % (0.0-0.3) % 0.0 Absolute Neutrophils (1.2-6.7) 10^3/uL 7.01 H Absolute Lymphocytes (1.2-3.4) 10^3/uL 0.42 L Absolute Monocytes (0.1-0.8) 10^3/uL 0.58 Absolute Eosinophils (0.0-0.7) 10^3/uL 0.01 Absolute Basophils (0.0-0.2) 10^3/uL 0.02 PT (9.1-11.1) sec 11.9 H INR (0.9-1.1) 1.2 H APTT (20.6-30.2) sec 33.8 H VBG pH (7.31-7.41) 7.43 H VBG pCO2 (41-51) mmHg 39 L VBG pO2 mmHg 17 VBG HCO3 (23-28) mmol/L 26 VBG Total CO2 (24-29) mmol/L 23 L VBG O2 Saturation % 31 VBG Base Excess (-2-3) mmol/L 1 VBG Lactate (<or=2.0) mmol/L 2.2 H* Sodium (136-145) mmol/L 139 Potassium (3.5-5.1) mmol/L 4.0 Chloride (98-107) mmol/L 102 Carbon Dioxide (21.0-32.0) mmol/L 27.7 Anion Gap (3-11) mmol/L 9.3 BUN (7-18) mg/dL 24 H Creatinine (0.70-1.30) mg/dL 1.6 H Est GFR (CKD-EPI 2020) (mL/min/1.73m2) 43.29 Glucose (74-106) mg/dL 182 H Calcium (8.5-10.1) mg/dL 9.3 Total Bilirubin (0.2-1.0) mg/dL 2.84 H AST (15-37) U/L 52 H ALT (16-63) U/L 32 Alkaline Phosphatase (46-116) U/L 97 Total Protein (6.4-8.2) g/dL 7.2 Albumin (3.4-5.0) g/dL 3.2 L Procalcitonin ng/mL 1.26 Urine Color (Yellow) Red Urine Clarity (Clear) Turbid Urine pH (5-8) Ur Specific [place] (1.005-1.025) 1.025 Urine Protein (Neg-Trace) mg/dL Urine Ketones (Negative) mg/dL Urine Blood (Negative) Urine Nitrite (Negative) Urine Bilirubin (Negative) Urine Urobilinogen (Up to 0.2) mg/dL Ur Leukocyte Esterase (Negative) Urine RBC (0-2) HPF >50 H Urine WBC (0-5) HPF Ur Epithelial Cells Not Applicable Urine Crystals Not Applicable Urine Bacteria Not Applicable Urine Mucus Not Applicable Ur Culture Indicated? Yes Urine Glucose (Negative) mg/dL COVID-19 Source Nasopharynx SARS-CoV-2 (PCR) (Negative) Negative Influenza Type A (PCR) (Negative) Negative Influenza Type B (PCR) (Negative) Negative RSV (PCR) (Negative) Negative Quality:SDOH Health Related Social Needs: Health related social needs details Patient does not w ant assistance PFSH All Active Problems (Updated 05/25/24 @ 05:27 by Isra Long MD) UTI (urinary tract infection) (Acute) Sepsis due to urinary tract infection (Acute) Pain in both feet (Acute) Nail dystrophy (Acute) Onychomycosis (Acute) Impacted cerumen, bilateral (Acute) Hearing loss (Acute) Actinic keratoses (Acute) Tubular adenoma of colon (Acute) Positive WALTER (antinuclear antibody) (Acute) PVC (premature ventricular contraction) (Acute) Medical History History of cardioversion Traumatic rupture of biceps tendon Restless leg syndrome Gilbert's syndrome Bladder outlet obstruction Bladder stone Benign carcinoid tumor of appendix Venous insufficiency JUANCARLOS (obstructive sleep apnea) Obesity Nephrolithiasis Male stress incontinence Hypertension Esophageal reflux Diastolic heart failure Decreased hearing Cervical spondylosis BPH with urinary obstruction Bladder spasms Cervical spine disease Tachy-thaddeus syndrome Paroxysmal SVT (supraventricular tachycardia) Atrial fibrillation Surgical History History of intestinal surgery Cecal resection H/O Spinal surgery Lumbar Hx of appendectomy Hx of cholecystectomy S/P TURP History of ureteroscopy Electrohydrodraulic lithotripsy of calculus of ureter History of esophagogastroduodenoscopy (EGD) H/O hemorrhoidectomy History of cataract surgery 11/2018 History of surgery Excision of cyst History of colonoscopy Family History Sister Cancer of kidney Diabetes Afib Mother Heart disease Afib Maternal Grandmother Heart disease Afib Social History Smoking/Tobacco Use Status: Never Second Hand Exposure: Yes Smoking risk assessment performed?: Yes Alcohol Intake: never Drug use: Never Substance use type: does not use Adopted: No Caregiver/Support person: No Foster care: No Household members: family Housing: house Number of Children: 0 number of grandchildren: 0 Communication Needs: Hard of Hearing and Corrective Lenses Education Level: high school Do you need help understanding health information?: Rarely current occupation: retired Pets and animals: Yes (1) Pets and animals: cat(s) Sexually active: No Do you think of yourself as: straight/heterosexual Current gender identity: male What is your relationship status?: never How often do you talk on the phone with friends or family?: three or more times per week How often do you get together with friends or relatives?: once per week Do you belong to any clubs or organized social groups?: no Panel score (0-1 are the most socially isolated patients): 1 What type of physical activity do you participate in: none Duration: < 15 minutes/day Frequency: 1-2 times per week Keeley/Hindu: Buddhist Special keeley needs: No Seatbelt use: always Helmet use: No 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
[2024-05-25 03:50] LABS: COVID-19 PCR Negative (Negative); Influenza A PCR Negative (Negative); Influenza B PCR Negative (Negative); RSV PCR Negative (Negative)
[2024-05-25 03:59] LABS: Source Nasopharynx
[2024-05-25 04:25] LABS: Lactate 1.4 mmol/L (<or=2.0)
--- NOTE | 2024-05-25 05:16 | W.PM.HP.N ---
Date of service: 05/25/24 Time of Service: 05:17 Assessment and Plan Assessment and plan (1) UTI (urinary tract infection): Status: Acute Assessment and plan: UTI. With high fever and borderline procal could be looking at pyelo or bacteremia. Hemodynamics satisfactory at present. Will continue empiric Levaquin, await cultures and push IVF. UTI: as above AF: DOAC, and rate control with beta katya and Digoxin ADs: will default to Full Code History of Present Illness History of Present Illness Chief Complaint: weakness Narrative: 79 male seen urgent care yesterday with urinary frequency/dysuria. Prescribed unknown antibiotic but did not hand picker; culture not obtained. Tonight felt weak, tried to get up to bathroom but slid to floor (no trauma). Able to get back in bed but unable to walk and came to ER. In ER findings of note for temp to 39.4, white count 8, procal borderline at 1.2 and urine showing WBC present but unable to quantify due to obscuring field packed with RBC. Lactate 2.2, down to 1.4 after IVF. Patient given Levaquin 750 and IVF. I was asked to evaluate for admission. Denies nausea, vomiting or back pain. Review of Systems Narrative: per HPI PFSH All Active Problems (Updated 05/25/24 @ 05:27 by Isra Long MD) UTI (urinary tract infection) (Acute) Sepsis due to urinary tract infection (Acute) Pain in both feet (Acute) Nail dystrophy (Acute) Onychomycosis (Acute) Impacted cerumen, bilateral (Acute) Hearing loss (Acute) Actinic keratoses (Acute) Tubular adenoma of colon (Acute) Positive WALTER (antinuclear antibody) (Acute) PVC (premature ventricular contraction) (Acute) Medical History History of cardioversion Traumatic rupture of biceps tendon Restless leg syndrome Gilbert's syndrome Bladder outlet obstruction Bladder stone Benign carcinoid tumor of appendix Venous insufficiency JUANCARLOS (obstructive sleep apnea) Obesity Nephrolithiasis Male stress incontinence Hypertension Esophageal reflux Diastolic heart failure Decreased hearing Cervical spondylosis BPH with urinary obstruction Bladder spasms Cervical spine disease Tachy-thaddeus syndrome Paroxysmal SVT (supraventricular tachycardia) Atrial fibrillation Surgical History History of intestinal surgery Cecal resection H/O Spinal surgery Lumbar Hx of appendectomy Hx of cholecystectomy S/P TURP History of ureteroscopy Electrohydrodraulic lithotripsy of calculus of ureter History of esophagogastroduodenoscopy (EGD) H/O hemorrhoidectomy History of cataract surgery 11/2018 History of surgery Excision of cyst History of colonoscopy Family History Sister Cancer of kidney Diabetes Afib Mother Heart disease Afib Maternal Grandmother Heart disease Afib Social History Smoking/Tobacco Use Status: Never Second Hand Exposure: Yes Smoking risk assessment performed?: Yes Alcohol Intake: never Drug use: Never Substance use type: does not use Adopted: No Caregiver/Support person: No Foster care: No Household members: family Housing: house Number of Children: 0 number of grandchildren: 0 Communication Needs: Hard of Hearing and Corrective Lenses Education Level: high school Do you need help understanding health information?: Rarely current occupation: retired Pets and animals: Yes (1) Pets and animals: cat(s) Sexually active: No Do you think of yourself as: straight/heterosexual Current gender identity: male What is your relationship status?: never How often do you talk on the phone with friends or family?: three or more times per week How often do you get together with friends or relatives?: once per week Do you belong to any clubs or organized social groups?: no Panel score (0-1 are the most socially isolated patients): 1 What type of physical activity do you participate in: none Duration: < 15 minutes/day Frequency: 1-2 times per week Keeley/Yarsanism: Mosque Special keeley needs: No Seatbelt use: always Helmet use: No 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 Do you feel safe at home: Yes Do you feel safe in your relationship?: Yes Meds Allergies and Home Medications Allergies Allergy/AdvReac Type Severity Reaction Status Date / Time Sulfa (Sulfonamide Allergy Swelling/Ed Verified 05/24/24 15:23 Antibiotics) ya Penicillins AdvReac Other (See Verified 05/24/24 15:23 Comment) Home Medications ?Medication ?Instructions ?Recorded ?Confirmed ?Type omeprazole 20 mg tablet,delayed 20 mg PO DAILY 11/26/16 05/25/24 History release digoxin 125 mcg (0.125 mg) tablet 0.125 mg PO HS 08/11/23 05/25/24 History acetaminophen 500 mg capsule 500 mg PO Q6H PRN 12/02/23 05/25/24 History furosemide 40 mg tablet 40 mg PO DAILY 12/02/23 05/25/24 History nystatin 100,000 unit/gram topical 1 applic topical BID PRN 12/02/23 05/25/24 History powder (Nystop) metoprolol succinate 100 mg 100 mg PO BID 02/05/24 05/25/24 History tablet,extended release 24 hr bisacodyl 5 mg tablet,delayed 5 mg PO ONCE colonscopy bowel prep 02/10/24 05/25/24 Rx release (Dulcolax (bisacodyl)) #4 tabs polyethylene glycol 3350 17 238 g PO ONCE colonoscopy prep 02/10/24 05/25/24 Rx gram/dose oral powder #238 grams apixaban 5 mg tablet (Eliquis) 5 mg PO BID #180 tabs 04/05/24 05/25/24 Rx diltiazem HCl 120 mg 120 mg PO DAILY #90 caps 04/05/24 05/25/24 Rx capsule,extended release 24 hr (Cartia XT) potassium chloride 10 mEq 10 meq PO DAILY #90 tabs 04/05/24 05/25/24 Rx tablet,extended release (Klor-Con) ketoconazole 2 % topical cream 1 applic topical DAILY #120 grams 04/20/24 05/25/24 Rx nitrofurantoin 100 mg PO Q12H 7 days #14 caps 05/24/24 05/25/24 Rx monohydrate/macrocrystals 100 mg capsule (Macrobid) Exam Narrative Exam Narrative: 107/59, 83, 39.4, 21, 94%. HEENT atraumatic; neck supple; lungs clear; heart irr/irr; back no CVAT; abdomen soft and NT; extremities w/o edema; neuro ox3, moves all 4s Results Labs 05/25/24 02:30 05/25/24 02:30 Labs: Laboratory Results - last 24 hr 05/25/24 05/25/24 05/25/24 02:30 02:51 04:22 WBC 8.11 RBC 5.45 Hgb 16.5 Hct 47.8 MCV 88 MCH 30.3 MCHC 34.5 RDW 14.8 H Plt Count 162 MPV 11.2 H Immature Gran % 0.9 Neutrophils % 86.4 Lymphocytes % 5.2 Monocytes % 7.2 Eosinophils % 0.1 Basophils % 0.2 Nucleated RBC % 0.0 Absolute Neutrophils 7.01 H Absolute Lymphocytes 0.42 L Absolute Monocytes 0.58 Absolute Eosinophils 0.01 Absolute Basophils 0.02 PT 11.9 H INR 1.2 H APTT 33.8 H VBG pH 7.43 H VBG pCO2 39 L VBG pO2 17 VBG HCO3 26 VBG Total CO2 23 L VBG O2 Saturation 31 VBG Base Excess 1 VBG Lactate 2.2 H* 1.4 Sodium 139 Potassium 4.0 Chloride 102 Carbon Dioxide 27.7 Anion Gap 9.3 BUN 24 H Creatinine 1.6 H Est GFR (CKD-EPI 2020) 43.29 Glucose 182 H Calcium 9.3 Total Bilirubin 2.84 H AST 52 H ALT 32 Alkaline Phosphatase 97 Total Protein 7.2 Albumin 3.2 L Procalcitonin 1.26 Urine Color Red Urine Clarity Turbid Urine pH Ur Specific [place] 1.025 Urine Protein Urine Ketones Urine Blood Urine Nitrite Urine Bilirubin Urine Urobilinogen Ur Leukocyte Esterase Urine RBC >50 H Urine WBC Ur Epithelial Cells Not Applicable Urine Crystals Not Applicable Urine Bacteria Not Applicable Urine Mucus Not Applicable Ur Culture Indicated? Yes Urine Glucose COVID-19 Source Nasopharynx SARS-CoV-2 (PCR) Negative Influenza Type A (PCR) Negative Influenza Type B (PCR) Negative RSV (PCR) Negative Last Vital Signs Temp 39.4 C H 05/25/24 02:22 Pulse 83 05/25/24 05:01 Resp 21 05/25/24 05:10 BP 107/59 L 05/25/24 05:01 Pulse Ox 94 05/25/24 05:10 Time Spent Time spent with Patient: 40-54 minutes Time was spent: preparing to see the patient(eg.review tests), obtaining and/or reviewing separately otained hiistory, ordering medications,tests, procedures, referring, communicating with other health health care marketing specialist and indepentently interpreting results
--- NOTE | 2024-05-25 07:27 | W.PC.ACHO ---
Registration Status: Primary Language: Preferred Language: ED Information & Data Chief Complaint Urinary 05/25/24 03:34 Triage Note untreated UTI for 4 days. 05/25/24 02:22 Fall, weak. Not altered. Hx of afib. Nauseated. Decreased urine output and urgency. One PDT zofran given Medical / Surgical History (Last Reviewed 05/25/24 @ 05:22 by Isra Long MD) History of cardioversion Traumatic rupture of biceps tendon Restless leg syndrome Gilbert's syndrome Bladder outlet obstruction Bladder stone Benign carcinoid tumor of appendix Venous insufficiency JUANCARLOS (obstructive sleep apnea) Obesity Nephrolithiasis Male stress incontinence Hypertension Esophageal reflux Diastolic heart failure Decreased hearing Cervical spondylosis BPH with urinary obstruction Bladder spasms Cervical spine disease Tachy-thaddeus syndrome Paroxysmal SVT (supraventricular tachycardia) Atrial fibrillation (Last Reviewed 05/25/24 @ 05:22 by Isra Long MD) History of intestinal surgery H/O Spinal surgery Hx of appendectomy Hx of cholecystectomy S/P TURP History of ureteroscopy History of esophagogastroduodenoscopy (EGD) H/O hemorrhoidectomy History of cataract surgery History of surgery History of colonoscopy Most Recent Vital Signs Temperature 39.4 C H 05/25/24 02:22 Temperature Source Tympanic 05/25/24 02:22 Pulse 79 05/25/24 06:01 Pulse 90 05/25/24 06:01 Respiratory Rate 21 05/25/24 06:01 Blood Pressure 119/55 L 05/25/24 06:01 Blood Pressure Mean 73 05/25/24 06:01 Blood Pressure Position Supine 05/25/24 02:22 Pulse Oximetry 96 05/25/24 06:01 Oxygen Delivery Method Room Air 05/25/24 02:22 Oxygen Flow Rate 0 05/25/24 02:22 Allergies Sulfa (Sulfonamide Antibiotics) Allergy (Verified 05/24/24 15:23) Swelling/Edema hand swelling, redness, pain Penicillins Adverse Reaction (Verified 05/24/24 15:23) Other (See Comment) Unknown Precautions Isolation Standard precaution 05/25/24 02:26 IV IV Catheter Type [Left Peripheral IV Antecubital] IV Catheter Type [Right Saline Lock Antecubital] IV Catheter Gauge [Left 18 Antecubital] IV Catheter Gauge [Right 18 Antecubital] Diet Orders Category Date Time Status Regular/Normal [DIET] Nutrition 05/25/24 Breakfast Active Diagnostics 05/25/24 05/25/24 05/25/24 Range/Units 04:22 02:51 02:30 WBC 8.11 (4.4-10.8) 10^3/uL RBC 5.45 (4.36-5.78) 10^6/uL Hgb 16.5 (13.5-17.5) g/dL Hct 47.8 (40.0-50.0) % MCV 88 (80-95) fL MCH 30.3 (27.0-33.0) pg MCHC 34.5 (32.0-36.0) % RDW 14.8 H (11.8-14.1) % Plt Count 162 (130-400) 10^3/uL MPV 11.2 H (8.0-11.0) fL Immature Gran % 0.9 % Neutrophils % 86.4 % Lymphocytes % 5.2 % Monocytes % 7.2 % Eosinophils % 0.1 % Basophils % 0.2 % Nucleated RBC % 0.0 (0.0-0.3) % Absolute Neutrophils 7.01 H (1.2-6.7) 10^3/uL Absolute Lymphocytes 0.42 L (1.2-3.4) 10^3/uL Absolute Monocytes 0.58 (0.1-0.8) 10^3/uL Absolute Eosinophils 0.01 (0.0-0.7) 10^3/uL Absolute Basophils 0.02 (0.0-0.2) 10^3/uL PT 11.9 H (9.1-11.1) sec INR 1.2 H (0.9-1.1) APTT 33.8 H (20.6-30.2) sec VBG pH 7.43 H (7.31-7.41) VBG pCO2 39 L (41-51) mmHg VBG pO2 17 mmHg VBG HCO3 26 (23-28) mmol/L VBG Total CO2 23 L (24-29) mmol/L VBG O2 Saturation 31 % VBG Base Excess 1 (-2-3) mmol/L VBG Lactate 1.4 2.2 H* (<or=2.0) mmol/L Sodium 139 (136-145) mmol/L Potassium 4.0 (3.5-5.1) mmol/L Chloride 102 (98-107) mmol/L Carbon Dioxide 27.7 (21.0-32.0) mmol/L Anion Gap 9.3 (3-11) mmol/L BUN 24 H (7-18) mg/dL Creatinine 1.6 H (0.70-1.30) mg/dL Est GFR (CKD-EPI 2020) 43.29 (mL/min/1.73m2) Glucose 182 H (74-106) mg/dL Calcium 9.3 (8.5-10.1) mg/dL Total Bilirubin 2.84 H (0.2-1.0) mg/dL AST 52 H (15-37) U/L ALT 32 (16-63) U/L Alkaline Phosphatase 97 (46-116) U/L Total Protein 7.2 (6.4-8.2) g/dL Albumin 3.2 L (3.4-5.0) g/dL Procalcitonin 1.26 ng/mL Urine Color Red (Yellow) Urine Clarity Turbid (Clear) Urine pH (5-8) Ur Specific [place] 1.025 (1.005-1.025) Urine Protein (Neg-Trace) mg/dL Urine Ketones (Negative) mg/dL Urine Blood (Negative) Urine Nitrite (Negative) Urine Bilirubin (Negative) Urine Urobilinogen (Up to 0.2) mg/dL Ur Leukocyte Esterase (Negative) Urine RBC >50 H (0-2) HPF Urine WBC (0-5) HPF Ur Epithelial Cells Not Applicable Urine Crystals Not Applicable Urine Bacteria Not Applicable Urine Mucus Not Applicable Ur Culture Indicated? Yes Urine Glucose (Negative) mg/dL COVID-19 Source Nasopharynx SARS-CoV-2 (PCR) Negative (Negative) Influenza Type A (PCR) Negative (Negative) Influenza Type B (PCR) Negative (Negative) RSV (PCR) Negative (Negative) 05/25/24 02:51 Urine Culture - Pending Urine - Reflex from Ua 05/25/24 02:37 Blood Culture - Pending Blood 05/25/24 02:30 Blood Culture - Pending Blood Intake and Output - 24 Hour Total 05/25/24 02:15 thru 05/25/24 05:22 Intake Total 2570 Output Total 100 Balance 2470 Weight 104.326 kg Intake: IV 2570 Output: Urine 100 Other: # Voids 1 Falls Risk Assessment History of Falls Admit Due to Fall 05/25/24 02:29 Contributing Factors Impairments 05/25/24 02:29 Ambulatory Aids Independent 05/25/24 02:29 Tubes/Lines None 05/25/24 02:29 Gait Evaluation No gait disturbance 05/25/24 02:29 Cognition No cognitive impairment 05/25/24 02:29 Fall Total Score 28 05/25/24 02:29 Level of Risk Moderate Risk 05/25/24 02:29 Problems (Last Reviewed 05/25/24 @ 05:22 by Isra Long MD) UTI (urinary tract infection) (Acute) v v v v v v v v v Sending and/or Receiving Nurses: Please use comment section below to note any information pertinent to the patient hand-off not included above. Information / Comments: Called for report at 0724, bilateral 18 G AC IVs. Amy will start LR in ED and get repeat temp. Report received from: Amy Andrea, INDEPENDENT LIVING SPECIALIST Nurse
[2024-05-25] MEDS: Lactated Ringers 1,000 ML 100 ML IV ×2 (07:30→19:22)
[2024-05-25] MEDS: dilTIAZem CD 120 MG CAPCR PO (08:42)
[2024-05-25] MEDS: Metoprolol CR 100 MG TABCR PO ×2 (08:42→21:27)
[2024-05-25] MEDS: Potassium Chloride 10 MEQ TABCR PO (08:42)
[2024-05-25] MEDS: Omeprazole 20 MG CAPCR PO (08:42)
[2024-05-25] MEDS: Apixaban 5 MG TAB PO ×2 (08:42→21:27)
[2024-05-25] MEDS: Ketoconazole 2% CREAM 15 GM TUBE TP (08:46)
--- NOTE | 2024-05-25 11:42 | INITIAL_ITS ---
Date of service: 05/25/24 Time of Service: 11:42 Care Management Initial Assmt Initial Assessment Reason for Hospitalization: Uti and weakness Functional Status/Living Situation Patient Presentation: Marcus was sitting up in bed visiting with his sister Rosa when CM met with him. He was pleasant in interaction and agreeable to conversation. Marcus was admitted with a Uti and extreme weakness. He was febrile with a temperature of 39.4 C on admission although his vital signs have been stable. Marcus lives in [facility] with his sister Rosa. They also have another sister Velia. Marcus does not have any children. He is retired from a career with [employer] doing [employer] service. He is independent at baseline and does not receive any community services. Marcus did report having a problem with swallowing and a swallow evaluation as well as a PT evaluation have been ordered. Town of Residence: [place] Resides with: Other (lives with sister Rosa) Significant Other/Family: Local Natural Supports: sisters Velia and Rosa Employment Status: Retired Instrumental Activities of Daily Living (ADLs): Independent Medications Medication Management: No Issues/Barriers identified Advance Directives Advance Directives: Do you have an Advance Directive: Y 12/18/23 16:43 AD On File at [facility]: N 03/06/16 13:35 Date Asked 05/25/24 05/25/24 07:32 AD Date Reviewed COLST On File at [facility] COLST Date Scanned Code Status Resuscitation Status Full Code Insurance Coverage/Financial Issues Insurance: [employer] Medicare Replacement Care Team Visit Care Team Role Provider Type Eric Rodriguez DO Primary Care Provider OSTEOPATHIC DOCTOR Abbie Merchant MD Emergency Provider [facility] STAFF PHYSICIAN Isra Long MD Admit Provider [facility] STAFF PHYSICIAN Attending Provider Discharge Potential Discharge Needs: PCP F/U Appt Anticipated Barriers to Discharge: None Identified Patient/Family Education Needs: Review discharge instructions, discuss Ask Me Three Transportation: Private vehicle Plan: Anticipate Marcus will be discharged home, possibly with new home health services, when medically stable. He will follow up with his community providers and plan of care and transport with family. CM will follow and continue to support discharge planning efforts. Social Determinants of Health Screening Social Determinants of Health last assessed: 05/25/24 Will the Patient Participate in the Screening?: Yes Do you worry about having a steady place to live?: no Problems where you live: no known problems In the past 12 months, have you had to go without electric, gas, oil or water in your home?: no Have you or anyone in your house had to go without enough food to eat?: no Has lack of transportation kept you from medical appointments or from doing things needed for daily living?: no Has anyone in your life made you feel unsafe or unsupported?: no How hard is it for you to pay for the very basics like food, housing, medical care, and heating? Would you say it is:: Not hard at all Do you want help finding or keeping work or a job?: I do not need or want help If for any reason you need help with day-to-day activities such as bathing, preparing meals, shopping, managing finances, etc., do you get the help you need?: I don?t need any help How often do you feel lonely or isolated from those around you?: Never Do you speak a language other than Slovak at home?: No Does the patient want assistance with any of the above?: No PFSH All Active Problems (Updated 05/25/24 @ 05:27 by Isra Long MD) UTI (urinary tract infection) (Acute) Sepsis due to urinary tract infection (Acute) Pain in both feet (Acute) Nail dystrophy (Acute) Onychomycosis (Acute) Impacted cerumen, bilateral (Acute) Hearing loss (Acute) Actinic keratoses (Acute) Tubular adenoma of colon (Acute) Positive WALTER (antinuclear antibody) (Acute) PVC (premature ventricular contraction) (Acute) Medical History History of cardioversion Traumatic rupture of biceps tendon Restless leg syndrome Gilbert's syndrome Bladder outlet obstruction Bladder stone Benign carcinoid tumor of appendix Venous insufficiency JUANCARLOS (obstructive sleep apnea) Obesity Nephrolithiasis Male stress incontinence Hypertension Esophageal reflux Diastolic heart failure Decreased hearing Cervical spondylosis BPH with urinary obstruction Bladder spasms Cervical spine disease Tachy-thaddeus syndrome Paroxysmal SVT (supraventricular tachycardia) Atrial fibrillation Surgical History History of intestinal surgery Cecal resection H/O Spinal surgery Lumbar Hx of appendectomy Hx of cholecystectomy S/P TURP History of ureteroscopy Electrohydrodraulic lithotripsy of calculus of ureter History of esophagogastroduodenoscopy (EGD) H/O hemorrhoidectomy History of cataract surgery 11/2018 History of surgery Excision of cyst History of colonoscopy Family History Sister Cancer of kidney Diabetes Afib Mother Heart disease Afib Maternal Grandmother Heart disease Afib Social History Smoking/Tobacco Use Status: Never Second Hand Exposure: Yes Smoking risk assessment performed?: Yes Alcohol Intake: never Drug use: Never Substance use type: does not use Adopted: No Caregiver/Support person: No Foster care: No Household members: family Housing: house Number of Children: 0 number of grandchildren: 0 Communication Needs: Hard of Hearing and Corrective Lenses Education Level: high school Do you need help understanding health information?: Rarely current occupation: retired Pets and animals: Yes (1) Pets and animals: cat(s) Sexually active: No Do you think of yourself as: straight/heterosexual Current gender identity: male What is your relationship status?: never How often do you talk on the phone with friends or family?: three or more times per week How often do you get together with friends or relatives?: once per week Do you belong to any clubs or organized social groups?: no Panel score (0-1 are the most socially isolated patients): 1 What type of physical activity do you participate in: none Duration: < 15 minutes/day Frequency: 1-2 times per week Keeley/Spiritism: Worship Special keeley needs: No Seatbelt use: always Helmet use: No Drive intox or ride w/intox bulk delivery driver: No Do you feel safe at home: Yes Do you feel safe in your relationship?: Yes
[2024-05-25] MEDS: Acetaminophen 500 MG TAB PO (15:45)
[2024-05-25] MEDS: Digoxin 0.125 MG TAB PO (21:26)
[2024-05-26] VITALS (15 sets, daily range): BP systolic 117–130; BP diastolic 55–78; PULSE 81–93; RESP 18–116; TEMP 36.8–39.3; O2SAT 93–98
[2024-05-26] MEDS: Acetaminophen 500 MG TAB PO (00:04)
--- NOTE | 2024-05-26 00:28 | NUR.NOTE ---
At [address] [facility] staff advised this promotion writer that patient had an elevated temp of 37.9C. Reassessment aproximately 25min later patients temperature was 39.3C. administered PRN tylenol per MAR and provider notified. Patient also c/o increased pain, urgency and painful pressure post void. Patient stated it feels like i'm not emptying my bladder all the way. This promotion writer bladder scanned patient and scan revealed 0ml left in bladder post void. Provider notified of request for pyridium to help with bladder pain. Provider in agreement and placed order. Medication to be given per JUN.
[2024-05-26] MEDS: Phenazopyridine 200 MG TAB PO (01:32)
[2024-05-26] MEDS: Lactated Ringers 1,000 ML 100 ML IV ×2 (05:27→15:13)
[2024-05-26] MEDS: Acetaminophen 500 MG TAB 650 MG PO (06:04)
[2024-05-26] MEDS: Omeprazole 20 MG CAPCR PO (07:46)
[2024-05-26] MEDS: dilTIAZem CD 120 MG CAPCR PO (07:46)
[2024-05-26] MEDS: Apixaban 5 MG TAB PO ×2 (07:46→20:29)
[2024-05-26] MEDS: Metoprolol CR 100 MG TABCR PO ×2 (07:47→20:29)
[2024-05-26] MEDS: Potassium Chloride 10 MEQ TABCR PO (07:47)
[2024-05-26] MEDS: Ketoconazole 2% CREAM 15 GM TUBE TP (07:47)
[2024-05-26] MEDS: Phenazopyridine 100 MG TAB PO ×3 (09:28→20:29)
--- NOTE | 2024-05-26 09:35 | PDOC.CMPRO ---
Date of service: 05/26/24 Time of Service: 09:35 Care Management Progress Note Progress Note Text Progress Note Text: Marcus is awake and sitting in a chair when CM met with him. He was pleasant in interaction and agreeable to conversation. He is here with a UTI, sepsis and weakness. He is being treated with IV abx and starting to feel better. He is still planning on discharging back home when medically ready for discharge. New [facility] PT is recommended by PT. Marcus will be discharged with a FWW, if still needed at the time of discharge. CM will follow. Discharge Potential Discharge Needs: PCP F/U Appt Anticipated Barriers to Discharge: Medical Status Patient/Family Education Needs: Review discharge instructions, discuss Ask Me Three Transportation: Private vehicle Plan: Anticipate Marcus will be discharged home with new home health PT services, when medically stable. He will follow up with his community providers and plan of care and transport with family. CM will follow and continue to support discharge planning efforts. Social Determinants of Health Screening Social Determinants of Health last assessed: 05/26/24 Will the Patient Participate in the Screening?: Yes Do you worry about having a steady place to live?: no Problems where you live: no known problems In the past 12 months, have you had to go without electric, gas, oil or water in your home?: no Have you or anyone in your house had to go without enough food to eat?: no Has lack of transportation kept you from medical appointments or from doing things needed for daily living?: no Has anyone in your life made you feel unsafe or unsupported?: no How hard is it for you to pay for the very basics like food, housing, medical care, and heating? Would you say it is:: Not hard at all Do you want help finding or keeping work or a job?: I do not need or want help If for any reason you need help with day-to-day activities such as bathing, preparing meals, shopping, managing finances, etc., do you get the help you need?: I don?t need any help How often do you feel lonely or isolated from those around you?: Never Do you speak a language other than Estonian at home?: No Does the patient want assistance with any of the above?: No
--- NOTE | 2024-05-26 12:24 | PT.INIE ---
PT Notes Visit Reasons: UTI, Weakness Physical Therapy Inpatient Initial Evaluation Date: 05/26/2024 Referring Doctor: Dr Houston PT Orders: PT CONSULT: PT evaluation Precautions: IV access LUE, Standard Patient Profile/Admitting Diagnosis: Pt is an 79 yo male presented to the ED 1 day s/p being diagnosed at Urgent care with a UTI. 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 He reported he slid of his toilet and was able to get himself up and get to bed but then was unable to get OOB therefore presented to ED via EMS. ED work up include labs. Pt noted to be tachy. , Pt dx of sepsis , UTI treated with IV Antibiotics and IV Fluids. PMHX: UTI (urinary tract infection) (Acute) Sepsis due to urinary tract infection (Acute) Pain in both feet (Acute) Nail dystrophy (Acute) Onychomycosis (Acute) Impacted cerumen, bilateral (Acute) Hearing loss (Acute) Actinic keratoses (Acute) Tubular adenoma of colon (Acute) Positive WALTER (antinuclear antibody) (Acute) PVC (premature ventricular contraction) (Acute) Medical History History of cardioversion Traumatic rupture of biceps tendon Restless leg syndrome Gilbert's syndrome Bladder outlet obstruction Bladder stone Benign carcinoid tumor of appendix Venous insufficiency JUANCARLOS (obstructive sleep apnea) Obesity Nephrolithiasis Male stress incontinence Hypertension Esophageal reflux Diastolic heart failure Decreased hearing Cervical spondylosis BPH with urinary obstruction Bladder spasms Cervical spine disease Tachy-thaddeus syndrome Paroxysmal SVT (supraventricular tachycardia) Atrial fibrillation Surgical History History of intestinal surgery Cecal resectionH/O Spinal surgery LumbarHx of appendectomy Hx of cholecystectomy S/P TURP History of ureteroscopy Electrohydrodraulic lithotripsy of calculus of ureterHistory of esophagogastroduodenoscopy (EGD) H/O hemorrhoidectomy History of cataract surgery 11/2018History of surgery Excision of cystHistory of colonoscopy Social History/Home Situation: Pt resides with his sister in a single family home with 2STE with 1 rail from garage or 5-6 FRANCK with 2 rails at front door. Pt reports he is independent ambulation, ADLs, driving, home management, medication mgmt, meal prep. He has no services at home. Equipment Owned/DME: none Subjective: Pt reports he is feeling much better than he did when he got to the hospital Pt reports he was shocked by how quickly he lost the strength and could not get out of bed at home on the morning of admission. Objective: General Observation: Pt presents upright with IV Fluids infusing in LUE. Pt agreeable to participate in PT assessment Mental Status:A + O x 4, cooperative, able to follow all instructions, demonstrates carryover of pacing techniques Pain: denies ROM: Right Upper Extremity: WNL Left Upper Extremity: WNL Right Lower Extremity: WNL Left Lower Extremity: WNL Strength: [] Right Upper Extremity: grossly 4/5 Left Upper Extremity: grossly 4/5 Right Lower Extremity: grossly 3+/5 Left Lower Extremity: grossly 3+/5 Sensation:intact ; pt notes some numbness long standing to B UE intermittently. Bed Mobility/Transfers: Supine to sit Supervision Sit to stand SBA Stand to sit SBA Bed to chair SBA Gait: ambulates with FWW with wheelchair follow for safety 125 feet with reciprocal pattern . last 25 feet pt noted with knee instability and reduced step length. Stairs : 2 step with rail CGA step to pattern Balance: [] Static Sitting: Normal Dynamic Sitting: Good Static Standing: Good Dynamic Standing: Fair Special Tests: [] Mobility Limitations Standardized Measure [] [facility] AM-PAC 6 clicks Basic Mobility Inpatient Short Form: [] Raw Score: 20 CMS Score:35.83% Informed Consent/Education: Patient instructed in purpose of PT consult. Treatment [id number]: Facilitated safe and correct performance of level surface ambulation covering a distance of 125 feet using use front wheeled walker with SB assist and wheelchair follow for safety. Did not report of any increased pain. Denied headache, chest pain, and lightheadedness throughout activity. Minimal verbal cueing provided for AD management, directional changes, and posture. with cues for pacing and 2 stand rest pt was able to perform without knee instability. Facilitated safe and correct performance of level surface ambulation covering a distance of 30 feet x 2 without AD. Did not report of any increased pain. Denied headache, chest pain, and lightheadedness throughout activity. Minimal verbal cueing provided for AD management, directional changes, and posture. Pt with decreased step length and wide HELENA as compared to ambulation with FWW. Assessment: Patient is an 79 yo male presents with clinical signs and symptoms consistent with current/admitting diagnoses that have resulted to mobility limitations, gait instability, generalized weakness, and impairment of motor control as demonstrated by the following impairment level findings: 1. Decreased strength to BLE major muscle groups 2. Impaired standing balance 3. Impaired functional activity tolerance Impairments are contributing to the following functional limitations: 1. Inability to safely ambulate without assistive device 2. Increase completion time for mobility ADL performance 3. Increased fall risk 4. difficulty performing stairs safely alone Patient is assessed as a moderate complexity based on the following: History: 79-year-old male with impairment level findings, functional limitations, and past medical history as indicated above Examination: Demonstrable impairment in strength, balance, and mobility level with underlying impairments and functional limitations as documented above Presentation: evolving Decision Making: moderate Goals: 1. Independent bed mobility 2. Independent Transfers 3. Independent ambulation >200 feet with No device or LRD 4. Independent 5 steps with 1 rail to safely enter and exit home. Plan of Care/Treatment Plan: 1-2x/day, 7 days/week x 1 week. Plan of care has been reviewed with the WAREHOUSE ADMINISTRATOR providing the service under Physical Therapy direction. Initiate Physical Therapy intervention for strengthening, bed mobility, transfers, gait, stairs, balance training, use of assistive device. DISCHARGE RECOMMENDATIONS: Home with PT. Pt may benefit from AD for energy conservation. TREATMENT CODE/TIME: 16298, 13156/ [id number] Thank you for the opportunity to participate in the care of this patient. Hanna Rebolledo, PT [facility]
--- NOTE | 2024-05-26 13:49 | PGE_ITS ---
Date of Service Date of service: 05/26/24 Time of Service: 13:49 Assessment and Plan Assessment and plan (1) Severe sepsis: Status: Acute Assessment and plan: - Patient met criteria for severe sepsis on admission with a temperature of 102.9 ?F, heart rate of 131, respiratory rate of 35, source of infection being urinary tract, lactic acid of 2.2 (improved to 1.4 after fluid resuscitation), and increase in total bilirubin up to 2.8 (previous 1.6) -Patient remained febrile with last fever being on the morning of 05/26/2024 at 5:50 AM -Will continue IV Levaquin (2) UTI (urinary tract infection): Status: Acute Assessment and plan: - Source of infection as noted above -Follow-up urine and blood culture results (3) Atrial fibrillation: Status: Chronic Assessment and plan: - Continue home Eliquis, digoxin, diltiazem, Lopressor (4) Hypertension: Assessment and plan: - Continue diltiazem, Lopressor, Lasix (5) Diastolic heart failure: Assessment and plan: - Continue regimen as noted above Subjective Subjective Interval history since last seen: Patient states that he is feeling better today but is still more weak as compared to baseline. Otherwise he has no other complaints concerns at this time. Exam Narrative Exam Narrative: Fatigued, well-appearing older gentleman sitting up in the chair no acute distress, ANO x 4, heart regular rhythm, lungs clear to auscultation bilaterally, abdomen soft, nontender, nondistended Objective Last Vital Signs Temp 99.0 F 05/26/24 13:39 Pulse 86 05/26/24 11:48 Resp 20 05/26/24 11:48 BP 122/64 05/26/24 11:48 Pulse Ox 96 05/26/24 11:48 Laboratory Results - last 24 hr 05/25/24 02:51 Urine Color Red Urine Clarity Turbid Urine pH Ur Specific Blair 1.025 Urine Protein Urine Ketones Urine Blood Urine Nitrite Urine Bilirubin Urine Urobilinogen Ur Leukocyte Esterase Urine RBC >50 H Urine WBC Ur Culture Indicated? Yes Urine Glucose PAWSS Have you Been Recently Intoxicated or Drunk Within the Last 30 days?: No Have you Ever Experienced Previous Episodes of Alcohol Withdrawal?: No Have you ever Experienced Withdrawal Seizures?: No Have you ever Experienced Delirium Tremens(DT)s?: No Have you ever undergone Alcohol Rehabilitation Treatment (i.e, inpt ot outpatient treatment programs)?: No Have you ever Experienced Blackouts?: No Have you ever Combined Alcohol with other Downers within the last 90 days?: No Have you ever Combined Alcohol with any other Substance of Abuse during the last 90 days?: No Positive Blood Alcohol level on Presentation? [PCS.BAL]: No Evidence of Increased Autonomic Activity (i.e. HR>120, tremor, sweating, agitation, nausea)?: No Result: 0 Time Spent with Patient Time Spent with Patient: >50 minutes Time was spent: preparing to see the patient(eg.review tests), obtaining and/or reviewing separately otained hiistory, ordering medications,tests, procedures, referring, communicating with other health professional healthcare representative, indepentently interpreting results, counseling the patient and care coordination
[2024-05-26] MEDS: Acetaminophen 325 MG TAB 650 MG PO (14:46)
[2024-05-26] MEDS: Normal Saline Flush 10 ML SYR IVP ×2 (17:07→20:30)
[2024-05-26] MEDS: Furosemide 20 MG TAB PO (17:55)
[2024-05-26] MEDS: Digoxin 0.125 MG TAB PO (20:29)
[2024-05-27] VITALS (11 sets, daily range): BP systolic 106–112; BP diastolic 50–68; PULSE 70–98; RESP 19; TEMP 36.7–39.2; O2SAT 92–96
[2024-05-27] MEDS: Normal Saline Flush 10 ML SYR IVP ×2 (01:09→22:05)
[2024-05-27] MEDS: levoFLOXacin 750 MG/150 ML BAG 100 MG IVPB (01:09)
[2024-05-27] MEDS: Acetaminophen 325 MG TAB 650 MG PO (01:16)
[2024-05-27 06:25] LABS: HCT 42.7 % (40.0-50.0); HGB 14.7 g/dL (13.5-17.5); MCH 29.9 pg (27.0-33.0); MCHC 34.4 % (32.0-36.0); MCV 87 fL (80-95); MPV 11.9 fL (8.0-11.0); Platelet Count 107 10^3/uL (130-400); RBC 4.91 10^6/uL (4.36-5.78); RDW 14.9 % (11.8-14.1); RDW-SD 47.8 fL; WBC 5.59 10^3/uL (4.4-10.8)
[2024-05-27 06:46] LABS: ALT 30 U/L (16-63); AST 52 U/L (15-37); Albumin 2.4 g/dL (3.4-5.0); Alkaline Phosphatase 89 U/L (46-116); BUN 14 mg/dL (7-18); Bilirubin, Total 1.32 mg/dL (0.2-1.0); CREATININE 1.2 mg/dL (0.70-1.30); Calcium 8.6 mg/dL (8.5-10.1); Chloride 104 mmol/L (98-107); Estimated GFR 61.13 (mL/min/1.73m2); Glucose 99 mg/dL (74-106); Potassium 3.8 mmol/L (3.5-5.1); Sodium 138 mmol/L (136-145)
[2024-05-27] MEDS: Apixaban 5 MG TAB PO ×2 (08:52→22:04)
[2024-05-27] MEDS: Metoprolol CR 100 MG TABCR PO ×2 (08:52→22:04)
[2024-05-27] MEDS: Phenazopyridine 100 MG TAB PO ×3 (08:52→22:03)
[2024-05-27] MEDS: Omeprazole 20 MG CAPCR PO (08:52)
[2024-05-27] MEDS: dilTIAZem CD 120 MG CAPCR PO (08:53)
[2024-05-27] MEDS: Potassium Chloride 10 MEQ TABCR PO (08:53)
--- NOTE | 2024-05-27 11:08 | PT.INTREAT ---
PT Notes Visit Reasons: UTI, Weakness Inpatient Physical Therapy Treatment Note [facility] Date: 05/27/2024 PRECAUTIONS:IV Access BUE , standard SUBJECTIVE:am: (AM) pt reports he has not received his meds yet and has been waiting for 2 hours. Pt also reports he is not comfortable in his chair. ( Nurse Mo had given him his meds and this PT provided pt with alternative recliner.) (pm) Pt reports he feels like he has been sweating alot. of note he continues with elevated temperature. OBJECTIVE:(am)Pt presents seated in chair. Pt with some confusion regarding meds which was clarified with his RN Suhail. ? (pm) Pt with no confusion seated in new chair which he reports is better than the other chair since he has been falling asleep in it ? PAIN: denies VITALS: ?monitored by nursing . Pt continues with elevated temp. Treatment: Transfers from chair, toilet and w/c with SBA wide HELENA (am/pm ) Ambulation: ---functional ambulation within room without AD simulating mobility within his home SBA wide HELENA decreased step length and step height. (am) --- Facilitated safe and correct performance of level surface ambulation covering a distance of 200 feetx 1 100 feet x 1 using use front wheeled walker with SBA and wheelchair follow for safety. Did not report of any increased pain. Denied headache, chest pain, and lightheadedness throughout activity. Minimal verbal cueing provided for AD management, directional changes, and posture (pm) ---- 5 Stairs with 2 rails SBA step to pattern down . reciprocal ascending. (pm) --- dynamic stand balance tasks for selfcare/ personal hygiene standing at sink. pt required 2 sit rests to complete grooming d/t reports of fatigue and SOB.(am) ---Exercise : stand 2 sets 5 reps of heel raises with BUE support, marching and hip abduction x 5 reps. ASSESSMENT:? In am session pt demonstrates impaired activity tolerance requiring sit rests during self care. In pm pt with improved activity tolerance able to ambulate with FWW total of 300 feet. Pt also able to perform stairs and stand therex. 5 reps Pt currently benefiting from use of FWW to facilitate activity tolerance and conserve energy/pacing. PLAN: 1-2x/day, 7 days/week x 1 week. Plan of care has been reviewed with the PLASTIC BUBBLE PACKER providing the service under Physical Therapy direction. Initiate Physical Therapy intervention for strengthening, bed mobility, transfers, gait, stairs, balance training, use of assistive device. TREATMENT CODE/TIME: 37860/ [id number] second session: 87390, 27653/ [id number] DISCHARGE RECOMMENDATION: Home with HHPT
[2024-05-27] MEDS: Furosemide 40 MG TAB PO (11:47)
[2024-05-27] MEDS: Ketoconazole 2% CREAM 15 GM TUBE TP (11:48)
--- NOTE | 2024-05-27 12:02 | PDOC.CMPRO ---
Date of service: 05/27/24 Time of Service: 12:02 Care Management Progress Note Progress Note Text Progress Note Text: Marcus was sitting in a chair watching TV when CM met with him. He is pleasant in interaction and engages in conversation, minimally. He is admitted for a UTI with severe sepsis and being closely monitored and treated with IV levoquin with cultures pending. He was restarted on Lasix today. No change to discharge planning considerations at this time; home with New PT. He is working with PT and may be issued a walker on discharge, if needed. CM will continue to follow. for a UTI with sepsis, Discharge Potential Discharge Needs: PCP F/U Appt Anticipated Barriers to Discharge: Medical Status Patient/Family Education Needs: Review discharge instructions, discuss Ask Me Three Transportation: Private vehicle Plan: Anticipate Marcus will be discharged home with new home health PT, when medically stable. He will follow up with his community providers and plan of care and transport with family. CM will follow and continue to support discharge planning efforts. Social Determinants of Health Screening Social Determinants of Health last assessed: 05/27/24 Will the Patient Participate in the Screening?: Yes Do you worry about having a steady place to live?: no Problems where you live: no known problems In the past 12 months, have you had to go without electric, gas, oil or water in your home?: no Have you or anyone in your house had to go without enough food to eat?: no Has lack of transportation kept you from medical appointments or from doing things needed for daily living?: no Has anyone in your life made you feel unsafe or unsupported?: no How hard is it for you to pay for the very basics like food, housing, medical care, and heating? Would you say it is:: Not hard at all Do you want help finding or keeping work or a job?: I do not need or want help If for any reason you need help with day-to-day activities such as bathing, preparing meals, shopping, managing finances, etc., do you get the help you need?: I don?t need any help How often do you feel lonely or isolated from those around you?: Never Do you speak a language other than Polish at home?: No Does the patient want assistance with any of the above?: No
--- NOTE | 2024-05-27 14:02 | CHAPLAIN ---
Marcus was up in the chair when I visited. He said he's feeling some better today. He lives in [address] with is sister and is retired from [employer]. Marcus was pleasant and not interested in further conversation.
--- NOTE | 2024-05-27 15:27 | W.PM.PROGNOT ---
Date of Service Date of service: 05/27/24 Time of Service: 15:27 Assessment and Plan Assessment and plan (1) Severe sepsis: Status: Acute Assessment and plan: - Patient met criteria for severe sepsis on admission with a temperature of 102.9 ?F, heart rate of 131, respiratory rate of 35, source of infection being urinary tract, lactic acid of 2.2 (improved to 1.4 after fluid resuscitation), and increase in total bilirubin up to 2.8 (previous 1.6) -Patient remained febrile with last fever being 11:08AM 05/27 -urine cultures growing pansensitive e. coli -Will continue IV Levaquin until afebrile for >24hrs and final blood cultures result (2) UTI (urinary tract infection): Status: Acute Assessment and plan: - Source of infection as noted above -Follow-up urine and blood culture results (3) Atrial fibrillation: Status: Chronic Assessment and plan: - Continue home Eliquis, digoxin, diltiazem, Lopressor (4) Hypertension: Assessment and plan: - Continue diltiazem, Lopressor, Lasix (5) Diastolic heart failure: Assessment and plan: - Continue regimen as noted above Subjective Subjective Interval history since last seen: Patient states that he is doing well today. He understands the plan to continue IV abx until he no longer has fevers and to monitor for his urine and blood culture results. Exam Narrative Exam Narrative: Fatigued, well-appearing older gentleman sitting up in the chair no acute distress, ANO x 4, heart regular rhythm, lungs clear to auscultation bilaterally, abdomen soft, nontender, nondistended Objective Last Vital Signs Temp 98.2 F 05/27/24 15:21 Pulse 70 05/27/24 15:21 Resp 19 05/27/24 15:21 BP 106/62 05/27/24 15:21 Pulse Ox 96 05/27/24 15:21 Laboratory Results - last 24 hr 05/27/24 05:56 WBC 5.59 RBC 4.91 Hgb 14.7 Hct 42.7 MCV 87 MCH 29.9 MCHC 34.4 RDW 14.9 H Plt Count 107 L MPV 11.9 H Sodium 138 Potassium 3.8 Chloride 104 Carbon Dioxide 28.0 Anion Gap 6.0 BUN 14 Creatinine 1.2 Est GFR (CKD-EPI 2020) 61.13 Glucose 99 Calcium 8.6 Total Bilirubin 1.32 H AST 52 H ALT 30 Alkaline Phosphatase 89 Total Protein 6.0 L Albumin 2.4 L PAWSS Have you Been Recently Intoxicated or Drunk Within the Last 30 days?: No Have you Ever Experienced Previous Episodes of Alcohol Withdrawal?: No Have you ever Experienced Withdrawal Seizures?: No Have you ever Experienced Delirium Tremens(DT)s?: No Have you ever undergone Alcohol Rehabilitation Treatment (i.e, inpt ot outpatient treatment programs)?: No Have you ever Experienced Blackouts?: No Have you ever Combined Alcohol with other Downers within the last 90 days?: No Have you ever Combined Alcohol with any other Substance of Abuse during the last 90 days?: No Positive Blood Alcohol level on Presentation? [PCS.BAL]: No Evidence of Increased Autonomic Activity (i.e. HR>120, tremor, sweating, agitation, nausea)?: No Result: 0 Time Spent with Patient Time Spent with Patient: >50 minutes Time was spent: preparing to see the patient(eg.review tests), obtaining and/or reviewing separately [facility] hiistory, ordering medications,tests, procedures, referring, communicating with other health elderly caregiver, indepentently interpreting results, counseling the patient and care coordination
[2024-05-27] MEDS: Polyethylene Glycol 3350 17 GM PACKET PO (15:38)
[2024-05-27] MEDS: Senna TAB 1 TAB PO (15:38)
[2024-05-27] MEDS: Digoxin 0.125 MG TAB PO (22:04)
[2024-05-28] MEDS: Normal Saline Flush 10 ML SYR IVP ×2 (01:56→09:31)
[2024-05-28] MEDS: levoFLOXacin 750 MG/150 ML BAG 100 MG IVPB (01:56)
[2024-05-28 02:03] VITALS: TEMP 37.6
[2024-05-28 03:32] VITALS: TEMP 36.6
[2024-05-28 06:52] LABS: HCT 43.7 % (40.0-50.0); HGB 15.1 g/dL (13.5-17.5); MCHC 34.6 % (32.0-36.0); MCV 87 fL (80-95); MPV 11.9 fL (8.0-11.0); Platelet Count 137 10^3/uL (130-400); RBC 5.04 10^6/uL (4.36-5.78); RDW 14.6 % (11.8-14.1); WBC 5.05 10^3/uL (4.4-10.8)
[2024-05-28 07:51] VITALS: BP 119/62; PULSE 71; RESP 18; TEMP 36.8; O2SAT 95
[2024-05-28] MEDS: Phenazopyridine 100 MG TAB PO (09:31)
[2024-05-28] MEDS: Furosemide 40 MG TAB PO (09:31)
[2024-05-28] MEDS: Potassium Chloride 10 MEQ TABCR PO (09:32)
[2024-05-28] MEDS: Omeprazole 20 MG CAPCR PO (09:32)
[2024-05-28] MEDS: Metoprolol CR 100 MG TABCR PO (09:32)
[2024-05-28] MEDS: dilTIAZem CD 120 MG CAPCR PO (09:32)
[2024-05-28] MEDS: Apixaban 5 MG TAB PO (09:32)
--- NOTE | 2024-05-28 11:14 | PDOC.HHF2F_ITS ---
Home Health Referral Home Health Orders Clinical synopsis of why skilled professionals are needed: Severe sepsis, UTI Physical Therapist: Check all that apply Increase strength & endurance for safe mobility at home: Ordered To design/establish home maintenance program: Ordered Fall reduction therapy program for patient with history of frequent falls: Ordered Home safety evaluation and teaching/gait training including stair management (if applicable): Ordered Encounter Date and Reason: I certify that a FTF encounter for this patient was performed on May 28, 2024 and that such encounter was related to the primary reason the patient requires home health services. The encounter was conducted in the following manner: * By me as the certifying physician, PRODUCE DEPARTMENT MANAGER, PA or * By an inpatient physician, PRODUCE DEPARTMENT MANAGER or PA during an inpatient stay who communicated findings to me, Certification And Authentication I certify that I composed the above information based on my clinical judgment relating to this patient's medical condition and, if applicable, clinical findings communicated to me by the NPP or inpatient physician who performed the FTF encounter. Name of Provider that will be monitoring home health services: Eric Rodriguez
--- NOTE | 2024-05-28 11:15 | W.PM.DS.N ---
Date of service: 05/28/24 Time of Service: 11:15 DS: Diagnosis Discharge Diagnosis (1) Severe sepsis: Status: Acute (2) UTI (urinary tract infection): Status: Acute (3) Atrial fibrillation: Status: Chronic (4) Hypertension: (5) Diastolic heart failure: Discharge Plan Disposition Patient Disposition: Home W/Home Health Services Condition: Good Discharge Details Reason For Visit: UTI, Weakness Admit Date/Time: 05/25/24 06:12 Admit Provider: Isra Long Attending Provider: Isra Long Primary Care Provider: Eric Rodriguez [facility] Course Hospital Course: Patient presented to the hospital with dysuria and weakness and was found to have severe sepsis due to e. coli UTI. Blood cultures were negative, and patient was febrile during hospitalization, but has been afebrile for >24hrs prior to discharge. He has been treated with IV levofloxacin and will be discharged with PO levo for an additional 3 days. He also work with PT and was determined to benefit from home health PT services. Home Meds and New Rx's Prescriptions: New levofloxacin 750 mg tablet 750 mg PO DAILY Qty: 3 0RF Continued acetaminophen 500 mg capsule 500 mg PO Q6H PRN polyethylene glycol 3350 17 gram/dose powder 238 g PO ONCE Qty: 238 0RF Rx Instructions: take per colonoscopy instructions bisacodyl [Dulcolax (bisacodyl)] 5 mg tablet,delayed release (DR/EC) 5 mg PO ONCE Qty: 4 0RF Rx Instructions: take per colonoscopy instructions metoprolol succinate 100 mg tablet extended release 24 hr 100 mg PO BID ketoconazole 2 % cream 1 applic topical DAILY Qty: 120 6RF Rx Instructions: Apply to toenails once daily Eliquis 5 mg tablet 5 mg PO BID Qty: 180 3RF diltiazem HCl [Cartia XT] 120 mg capsule,extended release 24hr 120 mg PO DAILY Qty: 90 3RF potassium chloride [Klor-Con 10] 10 mEq tablet extended release 10 meq PO DAILY Qty: 90 3RF omeprazole 20 MG tablet,delayed release (DR/EC) 20 mg PO DAILY digoxin 125 mcg (0.125 mg) tablet 0.125 mg PO HS furosemide 40 mg tablet 40 mg PO DAILY nystatin [Nystop] 100,000 unit/gram powder 1 applic topical BID PRN Discontinued nitrofurantoin monohyd/m-cryst [Macrobid] 100 mg capsule 100 mg PO Q12H 7 Days Qty: 14 0RF Rx Instructions: must administer with a meal/food. Take 1 pill every 12 hours x 5 days Discharge Instructions Activity:: Activity as Tolerated Equipment/Supplies:: No Equipment Needed Diet:: As Tolerated Discharge Orders Discharge Orders: Discharge Order (Routine); Ordered 05/28/24 Ordered By: Reji Arvizu DS: Summary Time Spent with Patient providing and/or coordinating discharge services: Greater than 30 minutes Status at Discharge Functional status at discharge: independent ambulation Overall status at discharge: patient is back to baseline Mental Status: mental status grossly normal Speech and Movement: speech and movement normal Mood: congruent mood Affect: normal affect Quality:SDOH Health Related Social Needs: Health related social needs details Patient does not want assistance Exam Narrative Exam Narrative: Fatigued, well-appearing older gentleman sitting up in the chair no acute distress, ANO x 4, heart regular rhythm, lungs clear to auscultation bilaterally, abdomen soft, nontender, nondistended Psych Mental Status: mental status grossly normal Speech and Movement: speech and movement normal Mood: congruent mood Affect: normal affect DS: Data Vitals/I&O Vitals and I&O: Vital Signs Temperature 98.2 F 05/28/24 07:51 Temperature Source Temporal Artery Scan 05/28/24 07:51 Pulse 71 05/28/24 07:51 Pulse Rhythm Regular 05/25/24 07:55 Pulse 90 05/25/24 06:01 Respiratory Rate 18 05/28/24 07:51 Respiratory Effort Normal, Non-Labored 05/25/24 07:55 Respiratory Depth Normal 05/25/24 07:55 Respiratory Pattern Normal 05/25/24 07:55 Blood Pressure 119/62 05/28/24 07:51 Blood Pressure Mean 73 05/25/24 06:01 Blood Pressure Position Supine 05/25/24 02:22 Pulse Oximetry 95 05/28/24 07:51 Oxygen Delivery Method Room Air 05/28/24 07:51 Oxygen Flow Rate 0 05/28/24 07:51 Pain Level 0 05/27/24 03:25 Comment Notifying RN on pulse and temp 05/25/24 15:28 Intake & Output 05/27/24 05/28/24 05/28/24 17:59 05:59 17:59 Intake Total 1020 / 1020 20 / 1040 300 / 300 Output Total 150 / 150 850 / 1000 100 / 100 Balance 870 / 870 -830 / 40 200 / 200 Intake: IV 20 / 20 Oral 1020 / 1020 300 / 300 Output: Urine 150 / 150 850 / 1000 100 / 100 Other: Urine Color Yellow [place] Urine Appearance Clear Clear Clear Urine Odor Normal Normal Normal Comment Unable to measure. pt dumped urine before this advertising copywriter could visualize it Data Completed and Pending Labs on day of discharge: Labs from last 24 hours 05/28/24 06:35 WBC 5.05 RBC 5.04 Hgb 15.1 Hct 43.7 MCV 87 MCH 30.0 MCHC 34.6 RDW 14.6 H Plt Count 137 MPV 11.9 H Preliminary micro results at discharge 05/25/24 02:37 Blood Culture - Preliminary Blood NO GROWTH 72 HOURS 05/25/24 02:30 Blood Culture - Preliminary Blood NO GROWTH 72 HOURS 05/27/24 01:38 Blood Culture - Preliminary Blood NO GROWTH 24 HOURS 05/27/24 01:35 Blood Culture - Preliminary Blood NO GROWTH 24 HOURS PFSH All Active Problems (Updated 05/28/24 @ 11:14 by Reji Arvizu MD) Atrial fibrillation (Chronic) Severe sepsis (Acute) UTI (urinary tract infection) (Acute) Sepsis due to urinary tract infection (Acute) Pain in both feet (Acute) Nail dystrophy (Acute) Onychomycosis (Acute) Impacted cerumen, bilateral (Acute) Hearing loss (Acute) Actinic keratoses (Acute) Tubular adenoma of colon (Acute) Positive WALTER (antinuclear antibody) (Acute) PVC (premature ventricular contraction) (Acute) Medical History History of cardioversion Traumatic rupture of biceps tendon Restless leg syndrome Gilbert's syndrome Bladder outlet obstruction Bladder stone Benign carcinoid tumor of appendix Venous insufficiency JUANCARLOS (obstructive sleep apnea) Obesity Nephrolithiasis Male stress incontinence Hypertension Esophageal reflux Diastolic heart failure Decreased hearing Cervical spondylosis BPH with urinary obstruction Bladder spasms Cervical spine disease Tachy-thaddeus syndrome Paroxysmal SVT (supraventricular tachycardia) Atrial fibrillation Surgical History History of intestinal surgery Cecal resection H/O Spinal surgery Lumbar Hx of appendectomy Hx of cholecystectomy S/P TURP History of ureteroscopy Electrohydrodraulic lithotripsy of calculus of ureter History of esophagogastroduodenoscopy (EGD) H/O hemorrhoidectomy History of cataract surgery 11/2018 History of surgery Excision of cyst History of colonoscopy Family History Sister Cancer of kidney Diabetes Afib Mother Heart disease Afib Maternal Grandmother Heart disease Afib Social History Smoking/Tobacco Use Status: Never Second Hand Exposure: Yes Smoking risk assessment performed?: Yes Alcohol Intake: never Drug use: Never Substance use type: does not use Adopted: No Caregiver/Support person: No Foster care: No Household members: family Housing: house Number of Children: 0 number of grandchildren: 0 Communication Needs: Hard of Hearing and Corrective Lenses Education Level: high school Do you need help understanding health information?: Rarely current occupation: retired Pets and animals: Yes (1) Pets and animals: cat(s) Sexually active: No Do you think of yourself as: straight/heterosexual Current gender identity: male What is your relationship status?: never How often do you talk on the phone with friends or family?: three or more times per week How often do you get together with friends or relatives?: once per week Do you belong to any clubs or organized social groups?: no Panel score (0-1 are the most socially isolated patients): 1 What type of physical activity do you participate in: none Duration: < 15 minutes/day Frequency: 1-2 times per week Keeley/Restorationist: Latter-Day Special keeley needs: No Seatbelt use: always Helmet use: No Drive intox or ride w/intox delivery route driver: No Do you feel safe at home: Yes Do you feel safe in your relationship?: Yes Time Spent with Patient Time Spent with Patient: <45 minutes Time was spent: preparing to see the patient(eg.review tests), obtaining and/or reviewing separately otained hiistory, ordering medications,tests, procedures, referring, communicating with other health rn progressive care, indepentently interpreting results, counseling the patient and care coordination
--- NOTE | 2024-05-28 11:18 | CMDISCH_ITS ---
Date of service: 05/28/24 Time of Service: 11:18 LACE Index Scoring Tool Questions: Length of Stay (in days): 3 Was the patient admitted via the E.D.?: Yes E.D. Visits: 2 Answers: Total Score: 8 Risk of Readmission: Low Risk Care Management Discharge Plan Reason for Hospitalization: UTI, Weakness Discharge Plan: Discharge home with New [facility] via private vehicle with family. Follow up with community providers and discharge plan of care as directed. Patient/Family Education Needs: Review discharge instructions, limitations, medications and plan to follow up with community providers. Discuss ask me three. Services Needed at Discharge: Home Health Care Services (New [facility] PT) SDOH Health Related Social Needs: Health related social needs details Patient does not w ant assistance
--- NOTE | 2024-05-28 11:31 | PTTR_ITS ---
PT Notes Visit Reasons: UTI, Weakness Inpatient Physical Therapy Treatment Note [facility] Date: 05/28/2024 PRECAUTIONS:IV Access BUE , standard SUBJECTIVE:Pt reports he had a hard time getting out of bed this morning ? PAIN: denies VITALS: ?monitored by nursing . Treatment: Transfers from chair, toilet independent with and without FWW Ambulation: ---functional ambulation within room without AD simulating mobility within his home SBA wide HELENA decreased step length and step height. (am) --- Facilitated safe and correct performance of level surface ambulation covering a distance of 300 feetx 1 using use front wheeled walker with SBA and wheelchair follow for safety. Did not report of any increased pain. Denied headache, chest pain, and lightheadedness throughout activity. Minimal verbal cueing provided for AD management, directional changes, and posture ---- 5 Stairs with 2 rails SBA step to pattern down . reciprocal ascending. ---Exercise : stand 2 sets 5 reps of heel raises with BUE support, marching and hip abduction x 5 reps. ASSESSMENT:? Pt fitted for and issued a front wheeled walker in anticipation of d/c to home. Pt reports he feels more secure for longer distances with the FWW. PLAN: 1-2x/day, 7 days/week x 1 week. Plan of care has been reviewed with the SOLUTIONS ARCHITECT providing the service under Physical Therapy direction. Initiate Physical Therapy intervention for strengthening, bed mobility, transfers, gait, stairs, balance training, use of assistive device. TREATMENT CODE/TIME: 79301/ DISCHARGE RECOMMENDATION: Home with HHPT
== END 2024-05-28 13:54 | disposition home health service (06) | DRG 872 ==
LOC: ER 06:56 → MS 07:32
PROVIDERS: Admitting Provider General Practice; Emergency Provider Student in an Organized Health Care Education/Training Program; PCP Family Medicine; Responsible Provider Family Medicine; Visit Provider General Practice
DX: A41.51 Sepsis due to Escherichia coli [E. coli]; N39.0 Urinary tract infection, site not specified; I48.11 Longstanding persistent atrial fibrillation; I50.30 Unspecified diastolic (congestive) heart failure; I47.19 Other supraventricular tachycardia; R65.20 Severe sepsis without septic shock; I11.0 Hypertensive heart disease with heart failure; B35.1 Tinea unguium; I49.3 Ventricular premature depolarization; G25.81 Restless legs syndrome; E80.4 Gilbert syndrome; I87.8 Other specified disorders of veins; G47.33 Obstructive sleep apnea (adult) (pediatric); E66.9 Obesity, unspecified; K21.9 Gastro-esophageal reflux disease without esophagitis; M47.812 Spondylosis without myelopathy or radiculopathy, cervical region; Z79.01 Long term (current) use of anticoagulants; Z68.30 Body mass index [BMI] 30.0-30.9, adult
CPT/HCPCS: 00123; 36415; 80053; 82805; 84145; 85027; 87040; 87077; 87637; 93005; 96365; 96368; 97110; 97162; 97530; 99285; 71045; 81003; 81015; 83605; 85025; 85610; 85730; 87086; 93010; 99222; 99233; 99239; J0131; J1956; J2020; J3490

== ENCOUNTER 2024-06-16 03:41 | Outpatient (CLI) | payer MEDICARE, SELFPAY ==
--- NOTE | 2024-06-16 06:45 | DI.US_ITS ---
Exam(s) US LOWER EXTREMITY VENOUS LT EXAM: US LOWER EXTREMITY VENOUS LT CLINICAL HISTORY: LT LEG Swelling after hospitalization, ? DVT,M79.89, SOFT TISSUE DISORDER TECHNIQUE: Left lower extremity venous ultrasound performed using grayscale, color-flow, and spectra l Doppler analysis. COMPARISON: No exams were available for comparison FINDINGS: The left common femoral, femoral and popliteal veins demonstrate normal compressibility, augmentation , and color Doppler. The posterior tibial veins are patent. The saphenofemoral junction is unremarka ble. There is no evidence of a Roberts cyst. The soft tissues are unremarkable. IMPRESSION: No evidence of a left lower extremity DVT. DATA REPOSITORY:
== END 2024-06-16 04:01 ==
LOC: DI 03:41
PROVIDERS: PCP Family Medicine; Visit Provider Family Medicine
DX: M79.89 Other specified soft tissue disorders (principal)
CPT/HCPCS: 93971

== ENCOUNTER → 2024-08-02 13:42 | Outpatient (BNVA) | payer MEDICARE, SELFPAY | PROVIDERS: PCP Family Medicine; Referring Provider Family Medicine; Visit Provider Registered Nurse | DX: I48.11 Longstanding persistent atrial fibrillation (principal); I10 Essential (primary) hypertension | CPT/HCPCS: 99214 ==

== ENCOUNTER → 2024-09-21 09:52 | Outpatient (BNVA) | payer MEDICARE, SELFPAY | PROVIDERS: PCP Family Medicine; Referring Provider Family Medicine; Visit Provider Podiatrist | DX: L60.0 Ingrowing nail (principal); B35.1 Tinea unguium; L60.3 Nail dystrophy; M79.671 Pain in right foot; M79.672 Pain in left foot; R60.0 Localized edema; I83.93 Asymptomatic varicose veins of bilateral lower extremities; L60.2 Onychogryphosis; L60.8 Other nail disorders | CPT/HCPCS: 11720 ==

== ENCOUNTER → 2024-09-22 13:57 | Outpatient (BNVA) | payer MEDICARE, SELFPAY | PROVIDERS: PCP Family Medicine; Referring Provider Family Medicine; Visit Provider Physical Therapy Assistant | DX: L72.8 Other follicular cysts of the skin and subcutaneous tissue (principal) | CPT/HCPCS: 99213 ==

== ENCOUNTER → 2024-10-25 15:02 | Outpatient (BNVA) | payer MEDICARE, SELFPAY | PROVIDERS: PCP Family Medicine; Referring Provider Family Medicine; Visit Provider Podiatrist | DX: L60.0 Ingrowing nail (principal); B35.1 Tinea unguium; L60.3 Nail dystrophy; M79.671 Pain in right foot; M79.672 Pain in left foot | CPT/HCPCS: 11750 ==

== ENCOUNTER 2024-11-02 06:04 | Day surgery (SDC) | payer MEDICARE, SELFPAY ==
--- NOTE | 2024-11-01 14:19 | W.PREOPHP ---
Assessment and Plan Assessment and plan (1) Epidermal inclusion cyst: Status: Acute Assessment and plan: We reviewed the plan for excision of an epidermal inclusion cyst today. Marcus and I agreed on the site together, and this was marked. Also discussed excision of skin tag, but this has been asymptomatic for many years, and is not regards, I do not think it needs to be removed. Marcus is agreement. He had the chance to ask any other questions, and he is able to provide informed consent so we can proceed with excision and closure as planned. History of Present Illness History of Present Illness Chief Complaint: hand lesion Narrative: 79 y/o male with a history of JUANCARLOS, restless leg syndrome, HTN, BPH, atrial fibrillation and SVT presents for further evaluation of of a cyst located on his back. He states this has been excised in the past, however it has recurred and he would like to have it excised again. Since his last visit, there have been changes with regards to the interval history. [facility] All Active Problems Epidermal inclusion cyst (Acute) IBS (irritable bowel syndrome) (Chronic ~10/2024) 10/26/24 GI Borborygmi (Acute ~10/2024) 10/26/24 [facility] GI Abdominal bloating (Acute ~10/2024) 10/26/24 [facility] GI - tests ordered Mass of subcutaneous tissue of back (Acute) Change in consistency of stool (Acute) Weakness (Acute) Low back pain (Acute) Atrial fibrillation (Chronic) Sepsis due to urinary tract infection (Acute) Pain in both feet (Acute) Nail dystrophy (Acute) Onychomycosis (Acute) Impacted cerumen, bilateral (Acute) Hearing loss (Acute) Actinic keratoses (Acute) Tubular adenoma of colon (Acute) Positive WALTER (antinuclear antibody) (Acute) PVC (premature ventricular contraction) (Acute) Medical History History of cardioversion Traumatic rupture of biceps tendon Restless leg syndrome Gilbert's syndrome Bladder outlet obstruction Bladder stone Benign carcinoid tumor of appendix Venous insufficiency JUANCARLOS (obstructive sleep apnea) Obesity Nephrolithiasis Male stress incontinence Hypertension Esophageal reflux Diastolic heart failure Decreased hearing Cervical spondylosis BPH with urinary obstruction Bladder spasms Cervical spine disease Tachy-thaddeus syndrome Paroxysmal SVT (supraventricular tachycardia) Surgical History History of intestinal surgery Cecal resection H/O Spinal surgery Lumbar Hx of appendectomy Hx of cholecystectomy S/P TURP History of ureteroscopy Electrohydrodraulic lithotripsy of calculus of ureter History of esophagogastroduodenoscopy (EGD) H/O hemorrhoidectomy History of cataract surgery 11/2018 History of surgery Excision of cyst History of colonoscopy Family History Sister Cancer of kidney Diabetes Afib Mother Heart disease Afib Maternal Grandmother Heart disease Afib Social History Smoking/Tobacco Use Status: Never Second Hand Exposure: Yes Smoking risk assessment performed?: Yes Alcohol Intake: never Drug use: Never Substance use type: does not use Adopted: No Caregiver/Support person: No Foster care: No Household members: family Housing: house Number of Children: 0 number of grandchildren: 0 Communication Needs: Hard of Hearing and Corrective Lenses Education Level: high school Do you need help understanding health information?: Rarely current occupation: retired Pets and animals: Yes (1) Pets and animals: cat(s) Sexually active: No Do you think of yourself as: straight/heterosexual Current gender identity: male What is your relationship status?: never How often do you talk on the phone with friends or family?: three or more times per week How often do you get together with friends or relatives?: once per week Do you belong to any clubs or organized social groups?: no Panel score (0-1 are the most socially isolated patients): 1 What type of physical activity do you participate in: none Duration: < 15 minutes/day Frequency: 1-2 times per week [place]ley/Synagogue: [employer] Special keeley needs: No Seatbelt use: always Helmet use: No Drive intox or ride w/intox service car driver: No Do you feel safe at home: Yes Do you feel safe in your relationship?: Yes Meds Allergies and Home Medications Allergies Allergy/AdvReac Type Severity Reaction Status Date / Time Sulfa (Sulfonamide Allergy Swelling/Ed Verified 11/02/24 07:04 Antibiotics) ya Penicillins AdvReac Other (See Verified 11/02/24 07:04 Comment) Home Medications ?Medication ?Instructions ?Recorded ?Confirmed ?Type acetaminophen 500 mg capsule 500 mg PO Q6H PRN 12/02/23 11/02/24 History nystatin 100,000 unit/gram topical 1 applic topical BID PRN 12/02/23 11/02/24 History powder (Nystop) metoprolol succinate 100 mg 100 mg PO BID 02/05/24 11/02/24 History tablet,extended release 24 hr apixaban 5 mg tablet (Eliquis) 5 mg PO BID #180 tabs 04/05/24 11/01/24 Rx diltiazem HCl 120 mg 120 mg PO DAILY #90 caps 04/05/24 11/02/24 Rx capsule,extended release 24 hr (Cartia XT) potassium chloride 10 mEq 10 meq PO DAILY #90 tabs 04/05/24 11/02/24 Rx tablet,extended release (Klor-Con) ketoconazole 2 % topical cream 1 applic topical DAILY #120 grams 04/20/24 11/02/24 Rx furosemide 40 mg tablet 40 mg PO DAILY #90 tabs 07/12/24 11/02/24 Rx omeprazole 20 mg tablet,delayed 20 mg PO DAILY #90 tabs 07/12/24 11/02/24 Rx release digoxin 125 mcg (0.125 mg) tablet 0.125 mg PO HS #90 tabs 09/03/24 11/02/24 Rx mupirocin 2 % topical ointment 1 applic topical DAILY #22 grams 10/26/24 11/02/24 Rx [id number]-bsddetbuf-imeakemh 3.5 See Rx Instructions .Route Q12H #5 10/26/24 11/02/24 Rx mg/mL-10,000 unit/mL-0.1% eye mL drops (Maxitrol) Saccharomyces boulardii 1 tab PO DAILY 10/27/24 11/01/24 History psyllium husk 3.4 gram/5.4 gram 1 tsp PO DAILY 10/27/24 11/02/24 History oral powder (Metamucil) Exam Const General: cooperative, healthy appearing and not in acute distress Neck Neck: normal visual inspection, no lymphadenopathy and supple Resp Effort & Inspection: normal respiratory effort Auscultation: clear to auscultation bilaterally Cardio Jugular venous pressure: no JVD Rate: regular rate Rhythm: regular rhythm Heart Sounds: S1 normal and S2 normal GI Inspection: normal to inspection Palpation: soft, no guarding, no hernias and nontender Percussion: normal to percussion Auscultation: normal bowel sounds Skin Other: There is an epidermal inclusion cyst, along the central back, slightly to the left side. It is nontender, nor are there any signs of infection. If you have inches away from the cyst, skin tag. It is asymptomatic. Neuro General: patient alert, patient awake and patient oriented x3 Psych Appearance: grossly normal
--- NOTE | 2024-11-01 14:31 | PDOC.DSDIS_ITS ---
Date of service: 11/02/24 Discharge Plan Disposition Patient Disposition: Home Condition: Good Discharge Details Reason For Visit: Epidermal inclusion cyst Attending Provider: Marcus Abebe Primary Care Provider: Eric Rodriguez Home Meds and New Rx's Prescriptions: Continued acetaminophen 500 mg capsule 500 mg PO Q6H PRN metoprolol succinate 100 mg tablet extended release 24 hr 100 mg PO BID ketoconazole 2 % cream 1 applic topical DAILY Qty: 120 6RF Rx Instructions: Apply to toenails once daily neomycin-polymyxin B-dexameth [Maxitrol] 3.5mg/mL-10,000 unit/mL-0.1 % drops,suspension See Rx Instructions .Route Q12H Qty: 5 0RF Rx Instructions: Apply to the toe every 12 hours; Apply to the TOE. Do NOT apply to eyes. Discard once the toe is healed. mupirocin 2 % ointment 1 applic topical DAILY Qty: 22 0RF diltiazem HCl [Cartia XT] 120 mg capsule,extended release 24hr 120 mg PO DAILY Qty: 90 3RF potassium chloride [Klor-Con 10] 10 mEq tablet extended release 10 meq PO DAILY Qty: 90 3RF furosemide 40 mg tablet 40 mg PO DAILY Qty: 90 1RF omeprazole 20 mg tablet,delayed release (DR/EC) 20 mg PO DAILY Qty: 90 1RF digoxin 125 mcg (0.125 mg) tablet 0.125 mg PO HS Qty: 90 3RF Metamucil 3.4 gram/5.4 gram powder 1 tsp PO DAILY Rx Instructions: mix into at least 4 oz water or juice before administering, May increase slowly up to 2 tsp qd x 1 week the 1 tbsp qd Saccharomyces boulardii [Daily Probiotic (S. boulardii)] 1 tab PO DAILY nystatin [Nystop] 100,000 unit/gram powder 1 applic topical BID PRN Held Eliquis 5 mg tablet 5 mg PO BID Qty: 180 3RF Hold Instructions: Resume on 11/03/24. Patient Comments: evening dose Discharge Instructions Additional Instructions: Marcus, I hope you make a quick and uneventful recovery as you transition home. I tried to use quite a bit of medication to help with any discomfort after surgery. I am confident we were able to remove the entire cyst. There was quite a bit of scar tissue from the previous surgery, but I took great care to make sure that we got as much as possible. You do have a deep layer of stitches that will be absorbed over time, and we use small sharon at the skin level since there is some tension across the incision, and that will help with that. We also used a special dressing called a josee dressing. As you see, it has a small little suction device attached to it. This will help keep the area stable, and evacuate any fluid that may accumulate in that old space. So long as the little light is blinking green on the josee device, it is working fine. If you notice that it changes colors at all, please call my office, or if it is after hours call the hospital and have them page the surgeon on-call. You will be able to shower with this dressing. To do that, simply tap the orange button once, and that we will turn the device off. You will see that the light stops blinking. Then untwist the suction tubing, leaving the sticky dressing in place on your back. Shower just as you normally would, and once you are out, simply reconnect the suction tubing, and tap the orange button once again. You may notice that the light blinks to different colors for a minute or 2 as it reestablishes suction, then it should go back to blinking green. I have gone ahead and arranged a follow-up visit in our office next week for removal of this dressing. 1. Resume all of your regular medications, except Eliquis. You may restart that on the . 2. Use ice packs over the incision to help with pain and swelling. You can place ice on top of the dressing. 3. Use jhuj-zov-sgufttc Tylenol every 6 hours for the first 2 days. Then use it as needed. Use the prescription for tramadol if you need that for more intense pain 4. Notify the surgical office, or the surgeon on-call for any problems with the dressing 5. You may shower according to the instructions above 6. No soaking or tub baths until I see you in the office. 7. No heavy lifting until I see you in the office. 8. Call the office (or go directly to the emergency room after hours) if you notice any of the following: Develop chills (warm to touch), or if you have a thermometer and your temperature is above 101 Difficulty breathing or difficultly swallowing Persistent vomiting Any bleeding ? exceeding one tablespoon 9. Call your physician if the site where your intravenous was started becomes red, swollen, painful, and warm to touch. Referrals: Marcus Abebe MD [ [facility] STAFF PHYSICIAN, Surgery] - 11/09/24 9:00 am Activity:: Activity as Tolerated Remove Dressings/Wound Care:: Do Not Remove Shower/Bathe:: 24 hours Diet:: As Tolerated Discharge Orders Discharge Orders: Discharge Order (Routine); Ordered 11/01/24 Ordered By: Marcus Abebe DS: Diagnosis Discharge Diagnosis (1) Epidermal inclusion cyst: Status: Acute Asessment and Plan: Outpatient follow-up for josee removal
--- NOTE | 2024-11-01 14:33 | W.PM.OP ---
Operative Note Operative Note PRE-OP DIAGNOSIS: Epidermal inclusion cyst POST-OP DIAGNOSIS: same PROCEDURE: Excision and primary closure of epidermal inclusion cyst SURGEON: Marcus Abebe RELIGION INSTRUCTOR: Kimberly Mittal ANESTHESIA TYPE: Local By Surgeon and General:No Airway Refer to Anesthesia Record ESTIMATED BLOOD LOSS: 10 PATHOLOGY: none sent COMPLICATIONS: None Patient was transported to: same day Patient's condition: stable Indications: Marcus is an 79-year-old male with a recurrent epidermal inclusion cyst Procedure Description: I met with Marcus in the preoperative area, and we reviewed the intent of surgery. I marked the site and he was in agreement. We then moved into the operating room, and he was assisted onto the OR table. He was assisted to the left lateral decubitus position. Great care was taken to ensure that he was padded and supported appropriately before anesthesia was initiated. Next, I prepped and draped the back. Once he was comfortable, I established a generous field block using local anesthetic with epinephrine. I made semielliptical incisions on each side of a poor over the area of the cyst. I dissected down into the subcutaneous space sharply, and then circumferentially dissected the cyst wall. Along the lateral aspect, there were dense adhesions to the epidermis from previous incisions. I took great care to ensure that all of the cyst wall was completely excised. Clinical features were entirely consistent with sebaceous cyst. Once all of the cyst was completely excised, the site was irrigated. There was a small amount of bleeding that was easily controlled with cautery. The deep layer was then reapproximated with 0 Vicryl sutures, and the skin was closed with surgical stapler. A josee negative pressure wound therapy device was applied according to the manufactures instructions. Date of Procedure: 11/02/24
--- NOTE | 2024-11-01 19:56 | W.ANESPRE ---
General Info Date of Service Date Performed: 11/02/24 Height: 5 ft 11 in Weight: 99.79 kg Body Mass Index (BMI): 30.7 Surgical Procedure: Operation Date: 11/02/24 07:40 Proposed Procedure Side Surgeon p Excision of Sebaceous Cyst & Skin Tag Marcus Abebe MD Meds Allergies and Home Medications Allergies Allergy/AdvReac Type Severity Reaction Status Date / Time Sulfa (Sulfonamide Allergy Swelling/Ed Verified 11/02/24 07:04 Antibiotics) ya Penicillins AdvReac Other (See Verified 11/02/24 07:04 Comment) Home Medication ?Medication ?Instructions ?Recorded acetaminophen 500 mg capsule 500 mg PO Q6H PRN 12/02/23 nystatin 100,000 unit/gram topical 1 applic topical BID PRN 12/02/23 powder (Nystop) metoprolol succinate 100 mg 100 mg PO BID 02/05/24 tablet,extended release 24 hr apixaban 5 mg tablet (Eliquis) 5 mg PO BID #180 tabs 04/05/24 diltiazem HCl 120 mg 120 mg PO DAILY #90 caps 04/05/24 capsule,extended release 24 hr (Cartia XT) potassium chloride 10 mEq 10 meq PO DAILY #90 tabs 04/05/24 tablet,extended release (Klor-Con) ketoconazole 2 % topical cream 1 applic topical DAILY #120 grams 04/20/24 furosemide 40 mg tablet 40 mg PO DAILY #90 tabs 07/12/24 omeprazole 20 mg tablet,delayed 20 mg PO DAILY #90 tabs 07/12/24 release digoxin 125 mcg (0.125 mg) tablet 0.125 mg PO HS #90 tabs 09/03/24 mupirocin 2 % topical ointment 1 applic topical DAILY #22 grams 10/26/24 [id number]-wpcuthgu 3.5 See Rx Instructions .Route Q12H #5 10/26/24 mg/mL-10,000 unit/mL-0.1% eye mL drops (Maxitrol) Saccharomyces boulardii 1 tab PO DAILY 10/27/24 psyllium husk 3.4 gram/5.4 gram 1 tsp PO DAILY 10/27/24 oral powder (Metamucil) Current Visit Medications: Current Medications Generic Name Dose Route Start Last Admin Trade Name Freq PRN Reason Stop Dose Admin Ringer's Solution 1,000 mls @ 80 mls/hr 11/02/24 06:00 IV 11/02/24 23:59 INFUSION HAMIDA IV Miscellaneous Supplies 1 each 11/02/24 06:00 Iv Access IV 11/02/24 23:59 DIRECTED HAMIDA Sodium Chloride 0 ml 11/02/24 06:00 Normal Saline Flush 10 Ml Syr IV 11/02/24 23:59 PRN PRN Sodium Chloride 0 ml 11/02/24 06:00 Normal Saline 10 Ml Vial IJ 11/02/24 23:59 DIRECTED PRN Sterile Water 0 ml 11/02/24 06:00 Water,Injection,Sterile 10 Ml Vial IJ 11/02/24 23:59 DIRECTED PRN Tramadol HCl 50 mg 11/01/24 14:32 Tramadol 50 Mg Tab PO 12/01/24 14:31 Q6H PRN PRN Pain PFSH Active Problems Active Problems: Problem Status Onset Code Epidermal inclusion cyst Acute L72.0 IBS (irritable bowel syndrome) Chronic ~10/2024 K58.9 Borborygmi Acute ~10/2024 R19.8 Abdominal bloating Acute ~10/2024 R14.0 Mass of subcutaneous tissue of back Acute R22.2 Change in consistency of stool Acute R19.5 Weakness Acute R53.1 Low back pain Acute M54.50 Atrial fibrillation Chronic I48.91 Sepsis due to urinary tract infection Acute A41.9, N39.0 Pain in both feet Acute M79.671, M79.672 Nail dystrophy Acute L60.3 Onychomycosis Acute B35.1 Impacted cerumen, bilateral Acute H61.23 Hearing loss Acute H91.90 Actinic keratoses Acute L57.0 Tubular adenoma of colon Acute D12.6 Positive WALTER (antinuclear antibody) Acute R76.8 PVC (premature ventricular contraction) Acute I49.3 Nuclear age-related cataract, right eye Resolved H25.11 Medical History Medical History History of cardioversion Traumatic rupture of biceps tendon Restless leg syndrome Gilbert's syndrome Bladder outlet obstruction Bladder stone Benign carcinoid tumor of appendix Venous insufficiency JUANCARLOS (obstructive sleep apnea) Obesity Nephrolithiasis Male stress incontinence Hypertension Esophageal reflux Diastolic heart failure Decreased hearing Cervical spondylosis BPH with urinary obstruction Bladder spasms Cervical spine disease Tachy-thaddeus syndrome Paroxysmal SVT (supraventricular tachycardia) Surgical History Surgical History History of intestinal surgery Cecal resection H/O Spinal surgery Lumbar Hx of appendectomy Hx of cholecystectomy S/P TURP History of ureteroscopy Electrohydrodraulic lithotripsy of calculus of ureter History of esophagogastroduodenoscopy (EGD) H/O hemorrhoidectomy History of cataract surgery 11/2018 History of surgery Excision of cyst History of colonoscopy Tobacco Smoking/Tobacco Use Status: Never Passive smoking exposure: Yes Second hand exposure: Yes Alcohol Alcohol Intake: never Substance Use Substance use: Never Substance use type: does not use Vital Signs and Lab Results Vital Signs Most Recent Vital Signs in EMR: 79 y/o male with a history of JUANCARLOS, restless leg syndrome, HTN, BPH, atrial fibrillation and SVT presents for further evaluation of of a cyst located on his back. He states this has been excised in the past, however it has recurred and Temp Pulse Resp BP Pulse Ox 36.5 C 65 16 128/72 96 11/02/24 06:58 11/02/24 06:58 11/02/24 06:58 11/02/24 06:58 11/02/24 06:58 he would like to have it excised again. Anesthesia Assessment and Plan Anesthesia History Personal History: No History of Anesthesia Complications Family History: No Family History of Anesthesia Complications Exercise Tolerance Exercise Tolerance: Metabolic Equivalents>4 Cardiac & Pulmonary Exam Cardiac Exam: Normal S1/S2 Heart Sounds Pulmonary Exam: Clear Bilateral Breath Sounds Implantable Cardiac Device Does patient have a Pacemaker or an ICD?: No Airway Exam Known Difficult Airway: No Mallampati Class: 4 Mouth Opening: Narrow (< 3cm) Thyromental Distance: Less than 3 cm Neck Range of Motion: Full ROM Neck Circumference: Normal Teeth Condition: Normal Dentition ASA Classification ASA Score: ASA 3 Emergency Case?: No NPO Status NPO Status: NPO Clears >2 hours, Solids >8 hours Anesthesia Plan Resuscitation Status: Full Code Anesthesia Technique: General Anesthesia Airway Planned: Natural Airway (ETT as back up or as positioning dictates) Monitors Used: Standard Monitors Preoperative Comments:: 79 yo male for sebaceous cyst excision. Sig PMHx: MVP, HTN (does not check at home), afib/SVT (dilt, apixaban, metoprolol), diastolic dysfunction/failure (furosemide, dig), JUANCARLOS, GERD (omeprazole), cervical spine DJD, never smoker ECHO: LVEF 58%, mild MR. ECG: afib.
[2024-11-02 06:58] VITALS: BP 128/72; PULSE 65; RESP 16; TEMP 36.5; O2SAT 96
[2024-11-02 07:12] VITALS: BMI 30.7
[2024-11-02] MEDS: Lactated Ringers 1,000 ML 80 ML IV (07:35)
[2024-11-02] MEDS: Bupivacaine 0.25% Pres-Free W/EPI 30 ML VIAL (07:51)
[2024-11-02 08:34] VITALS: BP 107/49; PULSE 81; RESP 13; TEMP 36.5; O2SAT 97
[2024-11-02 09:10] VITALS: BP 124/64; PULSE 76; RESP 15; TEMP 36.5; O2SAT 98
--- NOTE | 2024-11-02 18:39 | W.ANESPOSTOP ---
Postoperative Evaluation Date, Time and Location Date Performed: 11/02/24 Time Performed: 09:08 Patient Location: Day Surgery Unit Vital Signs Most Recent Imported Vital Signs: Most Recent Vital Signs Temp Pulse Resp BP Pulse Ox 36.5 C 76 15 124/64 98 11/02/24 09:10 11/02/24 09:10 11/02/24 09:10 11/02/24 09:10 11/02/24 09:10 Pain Score Most Recent Pain Score: Most Recent Pain Score Pain Level 0 11/02/24 09:10 Assessment Mental Status: Awake (Alert & Oriented to Patient Baseline) Airway and Respiratory Function: Patent airway with normal (patient baseline) respiratory exam Cardiovascular Function: Hemodynamically Stable Hydration Status: Adequately Hydrated Nausea & Vomiting: No Nausea or Vomiting Pain: Pt. Denies Any Pain Peripheral Nerve Block: Patient did not receive a nerve block
== END 2024-11-02 09:45 | disposition home or self-care (01) ==
LOC: SUR 06:05
PROVIDERS: PCP Family Medicine; Visit Provider Surgery
PROC: (CPT 11400; principal; 2024-11-02 07:30)
DX: L72.0 Epidermal cyst (principal); G47.33 Obstructive sleep apnea (adult) (pediatric); G25.81 Restless legs syndrome; I10 Essential (primary) hypertension; N40.0 Benign prostatic hyperplasia without lower urinary tract symptoms; I48.91 Unspecified atrial fibrillation; K58.9 Irritable bowel syndrome, unspecified; Z79.899 Other long term (current) drug therapy
CPT/HCPCS: 11400; 12031; J1100; J2405; J2704

== ENCOUNTER → 2024-11-17 11:08 | Outpatient (BNVA) | payer MEDICARE, SELFPAY | PROVIDERS: PCP Family Medicine; Referring Provider Family Medicine; Visit Provider Podiatrist | DX: L60.0 Ingrowing nail (principal); B35.1 Tinea unguium; L60.3 Nail dystrophy; M79.671 Pain in right foot; M79.672 Pain in left foot | CPT/HCPCS: 99213 ==

== ENCOUNTER 2024-12-17 03:30 | Outpatient (CLI) | payer MEDICARE, SELFPAY ==
[2024-12-17 11:58] LABS: Calculated LDL 118 mg/dL (<100); Cholesterol 180 mg/dL (<200); HDL Cholesterol 39 mg/dL (>or=40); Triglyceride 115 mg/dL (<150)
== END 2024-12-17 03:31 | disposition home or self-care (01) ==
LOC: LBO 03:31
PROVIDERS: PCP Family Medicine; Referring Provider Family Medicine; Visit Provider Family Medicine
DX: Z13.6 Encounter for screening for cardiovascular disorders (principal)
CPT/HCPCS: 36415; 80061

== ENCOUNTER 2024-12-27 07:28 | Outpatient (CLI) | payer MEDICARE, SELFPAY ==
--- NOTE | 2024-12-27 07:00 | DI.MRI_ITS ---
Exam(s) MR BRAIN WO EXAM: MR BRAIN WO CLINICAL HISTORY: Possible R sided TIA,G45.9 TECHNIQUE: Multiplanar multisequence MRI of the brain was performed. COMPARISON: No exams were available for comparison FINDINGS: VENTRICLES AND EXTRA AXIAL SPACES: Normal in size and morphology for the patient's age. MIDLINE SHIFT: None. CEREBRAL PARENCHYMA: No focus of restricted diffusion to suggest acute infarct. No space-occupying lesion identified. Mild atrophy consistent with the patient's age. No significant nephric ont white matter foci. BRAINSTEM/CEREBELLUM: Normal. VISUALIZED PARANASAL SINUSES: Clear. MASTOIDS:Clear. Vasculature: Normal flow void. PITUITARY GLAND: Unremarkable. ORBITS: Unremarkable. IMPRESSION: Unremarkable MRI of the brain. DATA REPOSITORY:
--- NOTE | 2024-12-27 13:30 | DI.US_ITS ---
APPROVED REPORT EXAM: Comprehensive 2D, Doppler, and color-flow Echocardiogram Patient Location: Out-Patient Police Surgeon: James Duque RDCS (AE) Indications: Possible TIA, known afib Other Information Study Quality: Fair Conclusion Normal left ventricular wall thickness and chamber size. Ejection fraction is 55%. Wall motion is normal Normal right ventricular size and function Both atria are moderately enlarged There are no structural valvular abnormalities Mild mitral regurgitation Trace to mild tricuspid regurgitation. Estimated right ventricular systolic pressure is 26 mmHg Wall motion Left Ventricle The left ventricle is normal size. The left ventricular systolic function is normal. The left ventricular ejection fraction is within the normal range. There is normal left ventricular wall thickness. There is normal LV segmental wall motion. There is no ventricular septal defect visualized. LVEF is 55%. Right Ventricle The right ventricle is normal size. The right ventricular systolic function is normal. Atria Left atrium is moderately dilated. Right atrium is moderately dilated. The interatrial septum is intact with no evidence for an atrial septal defect. Aortic Valve The aortic valve is normal in structure. Aortic valve is trileaflet. There is no aortic valvular stenosis. No aortic regurgitation is present. Mitral Valve The mitral valve is normal in structure. No evidence of mitral valve stenosis. Mild mitral regurgitation. Tricuspid Valve The tricuspid valve is normal in structure. There is no tricuspid valve stenosis. Trace to mild tricuspid regurgitation. The RVSP is 25.8 mmHg. Pulmonic Valve The pulmonary valve is normal in structure. There is no pulmonic valvular stenosis. Great Vessels The aortic root is normal in size. The ascending aorta is normal in size. IVC is normal in size and collapses >50% with inspiration. Pericardium There is no pericardial effusion. 2D Dimensions IVSD d PLAX 0.78 cm M: 0.6-1.2 Ao Root d 3.17 cm M: 3.1 - 3.7 LVPW d PLAX 0.84 cm M: 0.6 - 1.2 Ao Asc Diam d 3.09 cm M: 2.6 - 3.4 LVID d PLAX 6.06 cm M: 4.2 - 5.8 LVDs 4.27 cm M: 2.5 - 4.0 LV EF Teichholz 55.5 % FS 29.45 % LV EDV (Teich) 183.9 mL LV ESV (Teich) 81.8 mL Stroke Vol Index (Teich) 47.04 M-Mode TAPSE 2.15 cm (M/F) >1.7 Auto EF LV EDV A4C 111.0 mL LV EDV A2C 125.1 mL LV EDV BP 120.1 mL LV ESV A4C 52.3 mL LV ESV A2C 54.6 mL LV ESV BP 54.0 mL LVEF(%) A4C 52.8 % LVEF(%) A2C 56.4 % LVEF(%) BP 55.1 % LV SV A4C 58.6 ml LV SV A2C 70.5 ml LV SV BP 66.2 ml LV CO A4C 4.5 L/min LV CO A2C 5.2 L/min LV CO BP 4.9 L/min HR A4C 76.76 BPM HR A2C 74.23 BPM LV EDV Index (BP) LA Volume LA Length A4C 5.5 cm LA Length A2C 6.0 cm LA Area A4C s 19.35 cm2 LA Area A2C s 21.61 cm2 LA Vol A4C A-L 57.93 mL LA Vol A2C A-L 66.44 mL LA Vol Biplane A-L 64.7 mL LA Vol/BSA A4C A-L LA Vol/BSA A2C A-L LA Vol/BSA BP A-L 29.8 mL/m2 LA Vol A4C MOD 54.9 mL LA Vol A2C MOD 64.6 mL LA Vol BP MOD 61.8 mL RA Volume RA Area A4C 7.9 cm2 RA ESV A4C (A-L) 15.8mL RA Vol/BSA A4C A-L RA Length A4C 3.3 cm RA ESV A4C (MOD) 14.3mL LV Diastology MV E' medial 0.116 (>0.07 m/s) MV E Vmax 0.97 (0.4-1.3 m/s) MV E' lateral 0.111 (>0.1 m/s) Aortic Valve AoV Vmax 1.06 m/s LVOT Vmax 0.84 m/s AoV Peak Grad 4.5 mmHg LVOT Peak Grad 2.8 mmHg AoV Area (Vmax) 3.42 cm2 LVOT VTI 0.164 m AoV VTI 0.224 m LVOT Mean Grad 1.4 mmHg AoV Mean Mian. 0.69 m/s LVOT SV 71.26 mL AoV Mean Grad 2.2 mmHg LVOT Diam s 2.35 cm AoV Area (VTI) 3.18 cm2 AV Regurg Peak Gr. 4.51 mmHg Velocity Ratio 0.79 Pulmonary Valve PV Vmax 0.62 (0.5-1.5 m/s) RVOT Vmax 0.54 m/s PV Peak Grad 1.6 mmHg RVOT Peak Gr. 1.2 mmHg PV Mean Mian 0.42 m/s RVOT VTI 0.131 m PV Mean Grad 0.9 mmHg RVOT Mean Gr. 0.7 mmHg Tricuspid Valve RA Pressure 3.00 mmHg TR Vmax 2.39 m/s TR Peak Grad 22.8 mmHg RVSP (TR) 25.8 mmHg
== END 2024-12-27 07:48 ==
LOC: DI 07:28
PROVIDERS: PCP Family Medicine; Visit Provider Family Medicine
DX: I48.11 Longstanding persistent atrial fibrillation (principal); G45.9 Transient cerebral ischemic attack, unspecified
CPT/HCPCS: 93306; 70551

== ENCOUNTER 2024-12-27 19:37 | Outpatient (CLI) | payer MEDICARE, SELFPAY ==
--- NOTE | 2024-12-27 13:45 | DI.US_ITS ---
Exam(s) US CAROTID EXAM: US CAROTID CLINICAL HISTORY: Possible R side TIA,g45.9. TECHNIQUE: Ultrasound carotids performed using grayscale, color-flow, and spectral Doppler imaging. COMPARISON: No exams were available for comparison FINDINGS: RIGHT CAROTID ARTERY: Plaque: No significant calcific plaque is seen. Velocity elevation: None. LEFT CAROTID ARTERY: Plaque: There is minimal calcific plaque seen in the proximal left internal carotid artery. Velocity elevation: None. VERTEBRAL ARTERIES: Antegrade flow. Measurements: R Bulb: 76.3cm/s PS / 6.3cm/s ED R CCA: 91.9cm/s PS / 10.2cm/s ED R ECA: 107.5cm/s PS / 0cm/s ED R ICA Prox: 82cm/s PS / 12.6cm/s ED R ICA Mid: 86.9cm/s PS / 25.2cm/s ED R ICA Distal: 63.3cm/s PS /18cm/s ED R Vert: 51.3cm/s PS / 6cm/s ED R SVR: 0.9 R DVR: 2.5 L Bulb: 65.3cm/s PS / 9.6cm/s ED L CCA: 96.8cm/s PS / 14.4cm/s ED L ECA: 134.1cm/s PS / 7.1cm/s ED L ICA Prox: 51.3cm/s PS / 12.1cm/s ED L ICA Mid: 73.4cm/s PS / 18.2cm/s ED L ICA Distal: 64.8cm/s PS / 17cm/s ED L Vert: 40.3cm/s PS / 9.7cm/s ED L SVR: 0.8 L DVR: 1.3 IMPRESSION: No evidence for hemodynamically significant carotid stenosis. Criteria for Carotid Stenosis: Normal: ICA PSV <125 cm/s no plaque or intimal thickening is visible. <50% stenosis: ICA PSV <125 cm/s and plaque or intimal thickening is visible. 50-69% stenosis: ICA PSV is 125-250 cm/s and plaque is visible. >70% stenosis to near occlusion: ICA PSV >250 cm/s with visible plaque and luminal narrowing. DATA REPOSITORY:
== END 2024-12-27 19:57 ==
LOC: DI 19:37
PROVIDERS: PCP Family Medicine; Visit Provider Family Medicine
DX: G45.9 Transient cerebral ischemic attack, unspecified (principal)
CPT/HCPCS: 93880

== ENCOUNTER → 2025-01-31 13:34 | Outpatient (BNVA) | payer MEDICARE, SELFPAY | PROVIDERS: PCP Family Medicine; Referring Provider Family Medicine; Visit Provider Registered Nurse | DX: I48.11 Longstanding persistent atrial fibrillation (principal); I10 Essential (primary) hypertension; Z79.01 Long term (current) use of anticoagulants; Z79.02 Long term (current) use of antithrombotics/antiplatelets | CPT/HCPCS: 99214 ==

== ENCOUNTER 2025-02-25 17:15 | Observation (INO) | payer MEDICARE, SELFPAY ==
[2025-02-25] VITALS (21 sets, daily range): BP systolic 114–143; BP diastolic 52–79; PULSE 55–89; RESP 13–20; TEMP 36.2; O2SAT 97–100
--- NOTE | 2025-02-25 17:15 | RT.EKG_ITS ---
APPROVED REPORT Exam: Resting ECG Reason for Exam: dizziness Patient Location: E HR:84 bpm ECG Measurements Heart Rate 84 AXIS MD [id number] P [id number] QRSd 94 QRS 77 QT 337 T -31 QTc 400 Conclusion Atrial fibrillation...V-rate 63-113, irreg A-activity No STEMI
--- NOTE | 2025-02-25 17:30 | DI.RAD_ITS ---
Exam(s) XR CHEST 2V PA LATERAL EXAM: XR CHEST 2V PA LATERAL CLINICAL HISTORY: Chest pain TECHNIQUE: 2D digital imaging was performed. Two views. COMPARISON: CR,XR XR PORTABLE CHEST AP from 05/25/2024 FINDINGS: HEART: Enlarged, unchanged. Aorta: Somewhat tortuous. PULMONARY VASCULATURE: Normal. MEDIASTINUM: Unremarkable. LUNGS: Clear. PLEURAL SPACE: No pleural effusion or pneumothorax. BONE:Unremarkable for age. SOFT TISSUES: Unremarkable. IMPRESSION: No acute abnormality. The preliminary [facility] report was reviewed. DATA REPOSITORY: RADIATION DOSE DELIVERED:
--- NOTE | 2025-02-25 17:44 | W.ED.GENAD ---
Discharge Plan Disposition Patient Disposition: Admit to [facility] Condition: Stable Discharge Details Clinical Impression: TIA (transient ischemic attack), Pneumocephalus Primary Care Provider: Eric Rodriguez ED Provider: Jacklyn Neves Home Meds and New Rx's Prescriptions: No Action acetaminophen 500 mg capsule 500 mg PO Q6H PRN ketoconazole 2 % cream 1 applic topical DAILY Qty: 120 6RF Rx Instructions: Apply to toenails once daily metoprolol succinate 100 mg tablet extended release 24 hr 100 mg PO BID Qty: 180 3RF digoxin 125 mcg (0.125 mg) tablet 0.125 mg PO HS Qty: 90 3RF furosemide 40 mg tablet See Rx Instructions .ROUTE .COMPLEX Qty: 90 3RF Dose Instruction: TAKE 1 TABLET BY MOUTH DAILY Rx Instructions: TAKE 1 TABLET BY MOUTH DAILY omeprazole 20 mg capsule,delayed release(DR/EC) See Rx Instructions .ROUTE .COMPLEX Qty: 90 3RF Dose Instruction: TAKE 1 CAPSULE BY MOUTH DAILY Rx Instructions: TAKE 1 CAPSULE BY MOUTH DAILY diltiazem HCl [Cartia XT] 120 mg capsule,extended release 24hr 120 mg PO DAILY Qty: 90 3RF potassium chloride [Klor-Con 10] 10 mEq tablet extended release 10 meq PO DAILY Qty: 90 3RF Eliquis 5 mg tablet 5 mg PO BID Qty: 180 3RF Patient Comments: evening dose rosuvastatin 5 mg tablet 5 mg PO DAILY Qty: 30 3RF nystatin [Nystop] 100,000 unit/gram powder 1 applic topical BID PRN tramadol 50 mg tablet 50 mg PO Q8H PRNQty: 9 0RF Rx Instructions: Take 1 tablet by mouth if needed for more severe pain HPI General Mode of arrival: ambulatory. Date/Time Provider Initiated Documentation: 02/25/25 17:21. Limitations to Documentation: no limitations. Information obtained by: patient, RN notes reviewed and old records reviewed. HPI Narrative: 80-year-old male with a past medical history of SVT with cardioversion, hypertension, diastolic heart failure, atrial fibrillation on Eliquis presents to the ER after an episode where he was sitting looking at his computer screen and he had a what he describes a warm feeling in his chest which resolved on its own couple minutes later he states that he noted double vision, and feeling off. He denies any headache, weakness or numbness in his arms and legs or confusion. He states that the blurry vision or double vision just resolved just prior to arrival. He has no gross motor or focal neurodeficits noted upon exam and he is alert and oriented. He reports vertical diplopia which has since resolved. Related Data Home Medications ?Medication ?Instructions ?Recorded ?Confirmed acetaminophen 500 mg capsule 500 mg PO Q6H PRN 12/02/23 02/25/25 nystatin 100,000 unit/gram topical 1 applic topical BID PRN 12/02/23 02/25/25 powder (Nystop) ketoconazole 2 % topical cream 1 applic topical DAILY #120 grams 04/20/24 02/25/25 digoxin 125 mcg (0.125 mg) tablet 0.125 mg PO HS #90 tabs 09/03/24 02/25/25 tramadol 50 mg tablet 50 mg PO Q8H PRN #9 tabs 11/02/24 02/25/25 furosemide 40 mg tablet See Rx Instructions .Route 12/09/24 02/25/25 .COMPLEX #90 tabs omeprazole 20 mg capsule,delayed See Rx Instructions .Route 12/09/24 02/25/25 release .COMPLEX #90 caps diltiazem HCl 120 mg 120 mg PO DAILY #90 caps 01/13/25 02/25/25 capsule,extended release 24 hr (Cartia XT) apixaban 5 mg tablet (Eliquis) 5 mg PO BID #180 tabs 01/31/25 02/25/25 metoprolol succinate 100 mg 100 mg PO BID #180 tabs 01/31/25 02/25/25 tablet,extended release 24 hr potassium chloride 10 mEq 10 meq PO DAILY #90 tabs 01/31/25 02/25/25 tablet,extended release (Klor-Con) rosuvastatin 5 mg tablet 5 mg PO DAILY #30 tabs 02/24/25 02/25/25 Previous Rx's ?Medication ?Instructions ?Recorded ketoconazole 2 % topical cream 1 applic topical DAILY #120 grams 04/20/24 digoxin 125 mcg (0.125 mg) tablet 0.125 mg PO HS #90 tabs 09/03/24 tramadol 50 mg tablet 50 mg PO Q8H PRN #9 tabs 11/02/24 furosemide 40 mg tablet See Rx Instructions .Route 12/09/24 .COMPLEX #90 tabs omeprazole 20 mg capsule,delayed See Rx Instructions .Route 12/09/24 release .COMPLEX #90 caps diltiazem HCl 120 mg 120 mg PO DAILY #90 caps 01/13/25 capsule,extended release 24 hr (Cartia XT) apixaban 5 mg tablet (Eliquis) 5 mg PO BID #180 tabs 01/31/25 metoprolol succinate 100 mg 100 mg PO BID #180 tabs 01/31/25 tablet,extended release 24 hr potassium chloride 10 mEq 10 meq PO DAILY #90 tabs 01/31/25 tablet,extended release (Klor-Con) rosuvastatin 5 mg tablet 5 mg PO DAILY #30 tabs 02/24/25 Allergies Allergy/AdvReac Type Severity Reaction Status Date / Time Sulfa (Sulfonamide Allergy Swelling/Ed Verified 02/25/25 17:22 Antibiotics) ya Penicillins AdvReac Other (See Verified 02/25/25 17:22 Comment) General Stated Complaint: Chest Pain TEENA: 3 Review of Systems All systems reviewed & are unremarkable except as noted in HPI and below Musculoskeletal Musculoskeletal: Denies numbness and Denies tingling Neurologic Neurologic: Reports as per HPI, Denies numbness, Reports other visual disturbances and Denies tingling Course Vital Signs Vital signs: Vital Signs Temperature 36.2 C L 02/25/25 17:17 Pulse 72 02/25/25 17:17 Respiratory Rate 18 02/25/25 17:17 Blood Pressure 143/79 H 02/25/25 17:17 Pulse Oximetry 97 02/25/25 17:17 Temperature 36.2 C L 02/25/25 17:17 Pulse 72 02/25/25 17:17 Respiratory Rate 18 02/25/25 17:17 Blood Pressure 143/79 H 02/25/25 17:17 Pulse Oximetry 97 02/25/25 17:17 Pain Level 0 02/25/25 17:17 Medical Decision Making 80-year-old male with a past medical history of SVT with cardioversion, hypertension, diastolic heart failure, atrial fibrillation on Eliquis presents to the ER after an episode where he was sitting looking at his computer screen and he had a what he describes a warm feeling in his chest which resolved on its own couple minutes later he states that he noted double vision, and feeling off. He denies any headache, weakness or numbness in his arms and legs or confusion. He states that the blurry vision or double vision just resolved just prior to arrival. He has no gross motor or focal neurodeficits noted upon exam and he is alert and oriented. He reports vertical diplopia which has since resolved. Workup ordered including serial troponins, CBC CMP, PT PTT, proBNP and lipase. Patient does have 2+ pitting edema noted to his lower extremities. Does have a history of diastolic heart failure. CTA brain and neck ordered and chest x-ray. Differential diagnose include but limited to TIA, CAD, electrolyte imbalance, Informed by staff development coordinator that patient Bradys down into the 30s occasionally. I did witness this that he bradycardia down to 38. At this moment his heart rate is 74. CT initially read as negative however there is a hypodense area which I contacted [facility] juliana about and they state that he could have some venous gas which could be introduced by venous catheterization. I am hesitant to send patient home with his symptoms of double vision with these findings. I did contact Dr. Houston hospitalist regarding patient case in details. Digoxin level added on patient does take diltiazem and digoxin. 2113: Tele-neuro consult in progress. 2121: Spoke with Neurologist Dr. Cowart with [facility] teleneuro who suspects TIA and recommends MRI, due to possible pneumocephalus he does recommend patient stay until MRI can be obtained on Friday. Dr. houston accepted patient for admission. This text was generated using [employer] dictation system, please disregard any oddities of phrase or misspellings. Medical Records Medical records reviewed: Yes I reviewed the patient's medical records. Imaging Data Radiologic Study: Imaging: CT Scan Radiologist's impression: A subtle left-sided hypodensity is present within the CSF adjacent to the superior sagittal sinus best visualized on coronal view open series 5/image 32). A similar appearing hypodensity is present centrally within the superior sagittal sinus (series 5/image 25). On the postcontrast coronal images, the filling defect within the superior sagittal sinus appears decreased in size and slightly displaced to the left. This constellation of findings suggests a small focus of venous gas within a draining dural vein and within the superior sagittal sinus. This may have been associated with iatrogenic introduction of gas during intravenous cannulation. However, if further characterization is warranted, MRI of the brain could be used to further characterize findings. Alternatively, short interval follow-up could be used to evaluate for resolution of this finding. Lab Data Lab results reviewed: Yes I reviewed the patient's lab results. Labs: Laboratory Tests Range/Units 02/25/25 02/25/25 02/25/25 18:10 19:28 19:37 WBC (4.4-10.8) 10^3/uL 5.14 RBC (4.36-5.78) 10^6/uL 5.20 Hgb (13.5-17.5) g/dL 15.3 Hct (40.0-50.0) % 45.4 MCV (80-95) fL 87 MCH (27.0-33.0) pg 29.4 MCHC (32.0-36.0) % 33.7 RDW (11.8-14.1) % 15.7 H Plt Count (130-400) 10^3/uL 214 MPV (8.0-11.0) fL 10.5 Immature Gran % % 0.2 Neutrophils % % 61.1 Lymphocytes % % 28.2 Monocytes % % 7.2 Eosinophils % % 2.7 Basophils % % 0.6 Nucleated RBC % (0.0-0.3) % 0.0 Absolute Neutrophils (1.2-6.7) 10^3/uL 3.14 Absolute Lymphocytes (1.2-3.4) 10^3/uL 1.45 Absolute Monocytes (0.1-0.8) 10^3/uL 0.37 Absolute Eosinophils (0.0-0.7) 10^3/uL 0.14 Absolute Basophils (0.0-0.2) 10^3/uL 0.03 PT (9.1-11.1) sec 11.2 H INR (0.9-1.1) 1.1 APTT (20.6-30.2) sec 30.0 Sodium (136-145) mmol/L 145 Potassium (3.5-5.1) mmol/L 3.9 Chloride (98-107) mmol/L 108 H Carbon Dioxide (20.0-31.0) mmol/L 28.6 Anion Gap (3-11) mmol/L 8.4 BUN (9-23) mg/dL 16 Creatinine (0.73-1.18) mg/dL 1.11 Est GFR (CKD-EPI 2020) (mL/min/1.73m2) 63.56 Glucose (74-106) mg/dL 183 H Calcium (8.3-10.6) mg/dL 8.9 Magnesium (1.6-2.6) mg/dL 1.9 Total Bilirubin (0.2-1.2) mg/dL 1.90 H AST (<34) U/L 17 ALT (10-49) U/L 12 Alkaline Phosphatase (46-116) U/L 97 Troponin I (<54) ng/L < 3 < 3 NT-Pro-B Natriuret Pep (<300) pg/mL 1187 H Total Protein (5.7-8.2) g/dL 6.8 Albumin (3.4-5.0) g/dL 4.3 Lipase (<53) U/L 16 Urine Color (Yellow) Yellow Urine Clarity (Clear) Clear Urine pH (5-8) 7.0 Ur Specific [place] (1.005-1.025) 1.020 Urine Protein (Neg-Trace) mg/dL Negative Urine Ketones (Negative) mg/dL Negative Urine Blood (Negative) Negative Urine Nitrite (Negative) Negative Urine Bilirubin (Negative) Negative Urine Urobilinogen (Up to 0.2) mg/dL 0.2 Ur Leukocyte Esterase (Negative) Negative Urine Glucose (Negative) mg/dL Negative Quality:SDOH Health Related Social Needs: Health related social needs lonely/isolated Health related social needs details Patient does not want assistance PFSH All Active Problems (Updated 02/25/25 @ 21:56 by Fidel Houston MD) Dysphagia (Acute) Total bilirubin, elevated (Acute) Thyroiditis (Acute) Bradycardia (Acute) Pneumocephalus (Acute) TIA (transient ischemic attack) (Acute) Screening for cardiovascular condition (Acute) Epidermal inclusion cyst (Acute) IBS (irritable bowel syndrome) (Chronic ~10/2024) 10/26/24 GI Borborygmi (Acute ~10/2024) 10/26/24 [facility] GI Abdominal bloating (Acute ~10/2024) 10/26/24 [facility] GI - tests ordered Mass of subcutaneous tissue of back (Acute) Change in consistency of stool (Acute) Weakness (Acute) Low back pain (Acute) Atrial fibrillation (Chronic) Pain in both feet (Acute) Nail dystrophy (Acute) Onychomycosis (Acute) Impacted cerumen, bilateral (Acute) Hearing loss (Acute) Actinic keratoses (Acute) Tubular adenoma of colon (Acute) Positive WALTER (antinuclear antibody) (Acute) PVC (premature ventricular contraction) (Acute) Medical History History of cardioversion Traumatic rupture of biceps tendon Restless leg syndrome Gilbert's syndrome Bladder outlet obstruction Bladder stone Benign carcinoid tumor of appendix Venous insufficiency JUANCARLOS (obstructive sleep apnea) Obesity Nephrolithiasis Male stress incontinence Hypertension Esophageal reflux Diastolic heart failure Decreased hearing Cervical spondylosis BPH with urinary obstruction Bladder spasms Cervical spine disease Tachy-thaddeus syndrome Paroxysmal SVT (supraventricular tachycardia) Surgical History History of intestinal surgery Cecal resection H/O Spinal surgery Lumbar Hx of appendectomy Hx of cholecystectomy S/P TURP History of ureteroscopy Electrohydrodraulic lithotripsy of calculus of ureter History of esophagogastroduodenoscopy (EGD) H/O hemorrhoidectomy History of cataract surgery 11/2018 History of surgery Excision of cyst History of colonoscopy Family History Sister Cancer of kidney Diabetes Afib Mother Heart disease Afib Maternal Grandmother Heart disease Afib Social History Smoking/Tobacco Use Status: Never Second Hand Exposure: Yes Smoking risk assessment performed?: Yes Alcohol Intake: never Drug use: Never Substance use type: does not use Adopted: No Caregiver/Support person: No Foster care: No Household members: family Housing: house Number of Children: 0 number of grandchildren: 0 Communication Needs: Hard of Hearing and Corrective Lenses Education Level: high school Do you need help understanding health information?: Rarely current occupation: retired Pets and animals: Yes (1) Pets and animals: cat(s) Sexually active: No Do you think of yourself as: straight/heterosexual Current gender identity: male What is your relationship status?: never How often do you talk on the phone with friends or family?: three or more times per week How often do you get together with friends or relatives?: once per week Do you belong to any clubs or organized social groups?: no Panel score (0-1 are the most socially isolated patients): 1 What type of physical activity do you participate in: none Duration: < 15 minutes/day Frequency: 1-2 times per week Keeley/Episcopal: Baptist Special keeley needs: No Seatbelt use: always Helmet use: No Drive intox or ride w/intox armored car guard and driver: No Do you feel safe at home: Yes Do you feel safe in your relationship?: Yes
[2025-02-25 18:21] LABS: Abs Immature Grans 0.01 10^3/uL (0.0-0.06); HCT 45.4 % (40.0-50.0); HGB 15.3 g/dL (13.5-17.5); Immature Grans % 0.2 %; MCH 29.4 pg (27.0-33.0); MCHC 33.7 % (32.0-36.0); MCV 87 fL (80-95); MPV 10.5 fL (8.0-11.0); Platelet Count 214 10^3/uL (130-400); RBC 5.20 10^6/uL (4.36-5.78); RDW 15.7 % (11.8-14.1); RDW-SD 49.6 fL; WBC 5.14 10^3/uL (4.4-10.8)
[2025-02-25 18:34] LABS: INR 1.1 (0.9-1.1); PTT Activated 30.0 sec (20.6-30.2); Prothrombin Time 11.2 sec (9.1-11.1)
[2025-02-25 18:44] LABS: Lipase 16 U/L (<53); Magnesium 1.9 mg/dL (1.6-2.6)
[2025-02-25 18:46] LABS: ALT 12 U/L (10-49); AST 17 U/L (<34); Albumin 4.3 g/dL (3.4-5.0); Alkaline Phosphatase 97 U/L (46-116); Anion Gap 8.4 mmol/L (3-11); BUN 16 mg/dL (9-23); Bilirubin, Total 1.90 mg/dL (0.2-1.2); CO2 28.6 mmol/L (20.0-31.0); Calcium 8.9 mg/dL (8.3-10.6); Chloride 108 mmol/L (98-107); Glucose 183 mg/dL (74-106); Potassium 3.9 mmol/L (3.5-5.1); Sodium 145 mmol/L (136-145); Total Protein 6.8 g/dL (5.7-8.2)
[2025-02-25 18:47] LABS: Troponin I < 3 ng/L (<54)
[2025-02-25] MEDS: Normal Saline Flush 10 ML SYR IVP ×2 (19:06→23:08)
[2025-02-25] MEDS: Normal Saline - Diluent 50 ML VIAL IJ (19:06)
[2025-02-25] MEDS: Omnipaque 350 MG/ML 100 ML BTL IJ (19:07)
--- NOTE | 2025-02-25 19:25 | DI.CT_ITS ---
Exam(s) CT BRAIN NECK CTA EXAM: CT BRAIN NECK CTA CLINICAL HISTORY: Diplopia, Visual disturbances. TECHNIQUE: Imaging Protocol: Axial CT angiography was performed with multi- slice acquisition and multi-planar and MIP reconstructions. CONTRAST MATERIAL: Intravenous: Omnipaque 350 Contrast volume:70 ml COMPARISON: MR MR BRAIN WO from 12/27/2024 FINDINGS: CT Head W/O and W contrast: Ventricles and Extra axial spaces: Normal in size and morphology for the patient's age. Hemorrhage: None. Cerebral parenchyma: No evidence of acute infarct or mass. Mild atrophy. Midline shift: None. Brainstem/Cerebellum: No acute findings.. Calvarium: Normal. Visualized Paranasal sinuses/Mastoids: Clear. Soft Tissues: Unremarkable. Enhancement: Normal. Venous sinuses are patent. CTA Brain W: Internal Carotid Arteries: Right: No aneurysm, occlusion or significant stenosis. Left: No aneurysm, occlusion or significant stenosis. Middle Cerebral Arteries: Right: No aneurysm, occlusion or significant stenosis. Left: No aneurysm, occlusion or significant stenosis. Anterior Cerebral Arteries: Right: No aneurysm, occlusion or significant stenosis. Left: No aneurysm, occlusion or significant stenosis. Posterior cerebral Arteries: Right: No aneurysm, occlusion or significant stenosis. Left: No aneurysm, occlusion or significant stenosis. Vertebral Arteries: Right: No aneurysm, occlusion or significant stenosis. Left: No aneurysm, occlusion or significant stenosis. Basilar Artery: No aneurysm, occlusion or significant stenosis. CTA Neck W: Visualized aorta: Unremarkable. Visualized pulmonary arteries: Unremarkable. Subclavian arteries: Unremarkable. Common Carotid: No visible plaque. Right: No dissection, occlusion or significant stenosis. Left: No dissection, occlusion or significant stenosis. External Carotid: Right: No dissection, occlusion or significant stenosis. Left: No dissection, occlusion or significant stenosis. Internal Carotid: No visible plaque. Right: No dissection, occlusion or significant stenosis. Left: No dissection, occlusion or significant stenosis. Vertebral Artery: Right: No dissection, occlusion or significant stenosis. Left: No dissection, occlusion or significant stenosis. Lung Apices: No acute findings. Bones: No acute abnormality. Soft Tissues: Enlarged heterogeneous thyroid. IMPRESSION: 1. CTA brain: Normal CTA examination of the [place]. 2. Head CT: No acute abnormality. 3. CTA neck: No significant atherosclerotic changes. No evidence of occlusion, significant stenosis or dissection. The preliminary [facility] report was reviewed. RADIATION DOSE DELIVERED: Total DLP DATA REPOSITORY: All CT scans at this facility are submitted to the National Radiology Data Registry (NRDR) Dose Index Registry (DIR) with the [employer] (ACR). RADIATION OPTIMIZATION: All CT scans at this facility use at least one of these dose optimization techniques: automated exposure control; mA and/or kV adjustment per patient size (includes targeted exams where dose is matched to clinical indication); or iterative reconstruction.
--- NOTE | 2025-02-25 19:48 | DI.[facility]_ITS ---
PROCEDURE INFORMATION: Exam: XR Chest Exam date and time: 02/25/2025 7:18 PM Age: 80 years old Clinical indication: Pain; Chest pressure TECHNIQUE: Imaging protocol: Radiologic exam of the chest. Views: 2 views. COMPARISON: CR XR CHEST 2V PA LATERAL 11/26/2018 12:26 PM FINDINGS: Lungs: The lungs are clear. No consolidative radiopacities. Pleural spaces: No pleural effusion. No pneumothorax. Heart/Mediastinum: The heart is normal size. Bones/joints: Unremarkable. IMPRESSION: No acute cardiopulmonary findings. Dictated and Authenticated by: Emmy Randall MD. Orderin Edinson Villasenor MD
--- NOTE | 2025-02-25 19:52 | DI.VRAD_ITS ---
Addendum created by Emmy Randall MD on 02/25/2025 8:33:47 PM EST: A subtle left-sided hypodensity is present within the CSF adjacent to the superior sagittal sinus best visualized on coronal view open series 5/image 32). A similar appearing hypodensity is present centrally within the superior sagittal sinus (series 5/image 25). On the postcontrast coronal images, the filling defect within the superior sagittal sinus appears decreased in size and slightly displaced to the left. This constellation of findings suggests a small focus of venous gas within a draining dural vein and within the superior sagittal sinus. This may have been associated with iatrogenic introduction of gas during intravenous cannulation. However, if further characterization is warranted, MRI of the brain could be used to further characterize findings. Alternatively, short interval follow-up could be used to evaluate for resolution of this finding. Initial report created on 02/25/2025 7:52:03 PM EST: PROCEDURE INFORMATION: Exam: CTA Head Without And With Contrast, Arteriography Exam date and time: 02/25/2025 7:04 PM Age: 80 years old Clinical indication: Diplopia, visual disturbances TECHNIQUE: Imaging protocol: Computed tomographic angiography of the head without and with contrast. Exam focused on the arteries. 3D rendering (Not supervised by radiologist): MIP and/or 3D reconstructed images were created by the technologist. Radiation optimization: All CT scans at this facility use at least one of these dose optimization techniques: automated exposure control; mA and/or kV adjustment per patient size (includes targeted exams where dose is matched to clinical indication); or iterative reconstruction. Contrast material: [id number]; Contrast volume: 70 ml; Contrast route: INTRAVENOUS (IV); COMPARISON: MR BRAIN WO 12/27/2024 2:28 PM FINDINGS: ANTERIOR CIRCULATION: Right internal carotid artery: Intracranial segment is patent with no significant stenosis or occlusion. No aneurysm. Right middle cerebral artery: No occlusion or significant stenosis. No aneurysm. Right anterior cerebral artery: No occlusion or significant stenosis. No aneurysm. Left internal carotid artery: Intracranial segment is patent with no significant stenosis. No aneurysm. Left middle cerebral artery: No occlusion or significant stenosis. No aneurysm. Left anterior cerebral artery: No occlusion or significant stenosis. No aneurysm. POSTERIOR CIRCULATION: Right vertebral artery: No occlusion or significant stenosis. No aneurysm. Left vertebral artery: No occlusion or significant stenosis. No aneurysm. Basilar artery: No occlusion or significant stenosis. No aneurysm. Right posterior cerebral artery: No occlusion or significant stenosis. No aneurysm. Left posterior cerebral artery: No occlusion or significant stenosis. No aneurysm. HEAD: Brain: No acute intracranial hemorrhage or mass lesions. No midline shift. Normal colon-white differentiation. Cerebral ventricles: Normal. No ventriculomegaly. Bones: A probable osteoma is present adjacent to the frontal sinuses. Paranasal sinuses: Visualized sinuses are normal. No fluid levels. Mastoid air cells: Visualized mastoids are normal. No mastoid effusion. Soft tissues: Unremarkable. IMPRESSION: 1. No stenosis, occlusion, or aneurysm. 2. No acute intracranial findings. PROCEDURE INFORMATION: Exam: CTA Neck Without And With Contrast Exam date and time: 02/25/2025 7:04 PM Age: 80 years old Clinical indication: Diplopia, visual disturbances TECHNIQUE: Imaging protocol: Computed tomographic angiography of the neck without and with contrast. Exam focused on the cervical segments of the vasculature. 3D rendering (Not supervised by radiologist): MIP and/or 3D reconstructed images were created by the technologist. Radiation optimization: All CT scans at this facility use at least one of these dose optimization techniques: automated exposure control; mA and/or kV adjustment per patient size (includes targeted exams where dose is matched to clinical indication); or iterative reconstruction. Contrast material: [id number]; Contrast volume: 70 ml; Contrast route: INTRAVENOUS (IV); COMPARISON: US CAROTID 12/27/2024 1:52 PM FINDINGS: Right common carotid artery: No stenosis. No dissection or occlusion. Right internal carotid artery: No stenosis of the extracranial segment. No dissection or occlusion. Right external carotid artery: No occlusion or stenosis of the origin. Left common carotid artery: No stenosis. No dissection or occlusion. Left internal carotid artery: No stenosis of the extracranial segment. No dissection or occlusion. Left external carotid artery: No occlusion or stenosis of the origin. Right vertebral artery: No stenosis. No dissection or occlusion. Left vertebral artery: No stenosis. No dissection or occlusion. Thyroid: The thyroid gland is moderately enlarged and diffusely heterogeneous. Soft tissues: Normal. No significant soft tissue swelling. Bones/joints: No acute fracture. IMPRESSION: 1. No stenosis, occlusion, or aneurysm. 2. Heterogeneous enlarged thyroid which may be associated with thyroiditis. If further characterization is warranted, nonemergent thyroid ultrasound could be used. REFERENCES: NASCET CRITERIA. The degree of stenosis in the cervical segment of the internal carotid artery is based on NASCET criteria. Normal is no stenosis. Mild is less than 50% stenosis. Moderate is 50-69% stenosis. Severe is 70% to 99% stenosis. Total occlusion is no detectable patent lumen. Dictated and Authenticated by: Emmy Randall MD. Orderin Edinson Villasenor MD
[2025-02-25 20:01] LABS: Troponin I < 3 ng/L (<54)
[2025-02-25 20:16] LABS: Glucose Negative (Negative)
[2025-02-25 20:59] LABS: ESR 5 mm/hr (0-20)
[2025-02-25 21:13] LABS: Digoxin 1.01 ng/mL (0.80-2.00)
[2025-02-25 21:19] LABS: Troponin I < 3 ng/L (<54)
--- NOTE | 2025-02-25 21:44 | W.PM.HP.N ---
Date of service: 02/25/25 Time of Service: 21:44 Assessment and Plan Assessment and plan (1) TIA (transient ischemic attack): Status: Acute Assessment and plan: At this point unknown whether he had a TIA or CVA. Patient had been taking his Eliquis. Teleneurology is recommending an MRI with and without contrast so we will order this. Otherwise he completed a stroke workup in December of this year. The patient does have a subtle abnormality on his CT with possible foci of venous gas we will add the body of the report for convenience A subtle left-sided hypodensity is present within the CSF adjacent to the superior sagittal sinus best visualized on coronal view open series 5/image 32). A similar appearing hypodensity is present centrally within the superior sagittal sinus (series 5/image 25). On the postcontrast coronal images, the filling defect within the superior sagittal sinus appears decreased in size and slightly displaced to the left. This constellation of findings suggests a small focus of venous gas within a draining dural vein and within the superior sagittal sinus. This may have been associated with iatrogenic introduction of gas during intravenous cannulation. However, if further characterization is warranted, MRI of the brain could be used to further characterize findings. Alternatively, short interval follow-up could be used to evaluate for resolution of this finding. considering the patient's diplopia I have added the ESR (2) Atrial fibrillation: Status: Chronic Assessment and plan: Continue with Eliquis. I am holding his metoprolol tonight as he is fairly bradycardic. Consider decreasing the dose or switching to not extended release. Patient is on digoxin. Considering his bradycardia digoxin level has been ordered by the ED. (3) Hypertension: Assessment and plan: Patient is on multiple medications for hypertension including Lasix Cardizem metoprolol. Will hold metoprolol as mentioned (4) Bradycardia: Status: Acute Assessment and plan: As mentioned hold metoprolol recheck values in the a.m. (5) Thyroiditis: Status: Acute Assessment and plan: This is found on his CT scan recommended not urgent ultrasound. I have added a TSH level. (6) Total bilirubin, elevated: Status: Acute Assessment and plan: Monitor. (7) Dysphagia: Status: Acute Assessment and plan: Patient does report a history of dysphagia of late. No weight loss associated. Will place a speech consult. Patient does not have significant risk factors for esophageal malignancies. History of Present Illness History of Present Illness Chief Complaint: diploplia Narrative: Mr Ramon is a 80-year-old gentleman who presents today with episode of diplopia that started this morning. Patient states that he was watching a video on his computer and started having double vision. Patient states this lasted for approximately 20 minutes and by the time he came to the ED it had completely resolved. Patient states he has never had any like this happen before. Patient states that he did have some prodromal chest warmth. Patient states that approximately 2 months ago he did have similar symptoms with no warmth in his right upper lower extremity. At that time his PCP ordered a stroke workup and he did get an echocardiogram as well as an MRI. MRI at that time was unremarkable. He also had a carotid ultrasound which did not show any stenosis. Also had a echocardiogram done which showed an EF of 55% bilateral atrial enlargement but otherwise benign. Patient is on Eliquis for history of A-fib. States he is taking his medication regularly. While he was in the ED he was noted to have an episode of bradycardia down to the mid or low 40s. In terms of review of systems the patient does complain of epistaxis which is intermittent but no associated hematuria or bleeding with brushing his teeth. Patient also complains of problems swallowing at times especially when he is trying to swallow his potassium pill which is quite large. Review of Systems All systems reviewed & are unremarkable except as noted in HPI and below PFSH All Active Problems (Updated 02/25/25 @ 21:56 by Fidel Houston MD) Dysphagia (Acute) Total bilirubin, elevated (Acute) Thyroiditis (Acute) Bradycardia (Acute) Pneumocephalus (Acute) TIA (transient ischemic attack) (Acute) Screening for cardiovascular condition (Acute) Epidermal inclusion cyst (Acute) IBS (irritable bowel syndrome) (Chronic ~10/2024) 10/26/24 [facility] [place] (Acute ~10/2024) 10/26/24 [facility] Abdominal bloating (Acute ~10/2024) 10/26/24 [facility] - tests ordered Mass of subcutaneous tissue of back (Acute) Change in consistency of stool (Acute) Weakness (Acute) Low back pain (Acute) Atrial fibrillation (Chronic) Pain in both feet (Acute) Nail dystrophy (Acute) Onychomycosis (Acute) Impacted cerumen, bilateral (Acute) Hearing loss (Acute) Actinic keratoses (Acute) Tubular adenoma of colon (Acute) Positive WALTER (antinuclear antibody) (Acute) PVC (premature ventricular contraction) (Acute) Medical History History of cardioversion Traumatic rupture of biceps tendon Restless leg syndrome Gilbert's syndrome Bladder outlet obstruction Bladder stone Benign carcinoid tumor of appendix Venous insufficiency JUANCARLOS (obstructive sleep apnea) Obesity Nephrolithiasis Male stress incontinence Hypertension Esophageal reflux Diastolic heart failure Decreased hearing Cervical spondylosis BPH with urinary obstruction Bladder spasms Cervical spine disease Tachy-thaddeus syndrome Paroxysmal SVT (supraventricular tachycardia) Surgical History History of intestinal surgery Cecal resection H/O Spinal surgery Lumbar Hx of appendectomy Hx of cholecystectomy S/P TURP History of ureteroscopy Electrohydrodraulic lithotripsy of calculus of ureter History of esophagogastroduodenoscopy (EGD) H/O hemorrhoidectomy History of cataract surgery 11/2018 History of surgery Excision of cyst History of colonoscopy Family History Sister Cancer of kidney Diabetes Afib Mother Heart disease Afib Maternal Grandmother Heart disease Afib Social History Smoking/Tobacco Use Status: Never Second Hand Exposure: Yes Smoking risk assessment performed?: Yes Alcohol Intake: never Drug use: Never Substance use type: does not use Adopted: No Caregiver/Support person: No Foster care: No Household members: family Housing: house Number of Children: 0 number of grandchildren: 0 Communication Needs: Hard of Hearing and Corrective Lenses Education Level: high school Do you need help understanding health information?: Rarely current occupation: retired Pets and animals: Yes (1) Pets and animals: cat(s) Sexually active: No Do you think of yourself as: straight/heterosexual Current gender identity: male What is your relationship status?: never How often do you talk on the phone with friends or family?: three or more times per week How often do you get together with friends or relatives?: once per week Do you belong to any clubs or organized social groups?: no Panel score (0-1 are the most socially isolated patients): 1 What type of physical activity do you participate in: none Duration: < 15 minutes/day Frequency: 1-2 times per week Keeley/Evangelical: Mu-Ism Special keeley needs: No Seatbelt use: always Helmet use: No 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 Do you feel safe at home: Yes Do you feel safe in your relationship?: Yes Meds Allergies and Home Medications Allergies Allergy/AdvReac Type Severity Reaction Status Date / Time Sulfa (Sulfonamide Allergy Swelling/Ed Verified 02/25/25 17:22 Antibiotics) ya Penicillins AdvReac Other (See Verified 02/25/25 17:22 Comment) Home Medications ?Medication ?Instructions ?Recorded ?Confirmed ?Type acetaminophen 500 mg capsule 500 mg PO Q6H PRN 12/02/23 02/25/25 History nystatin 100,000 unit/gram topical 1 applic topical BID PRN 12/02/23 02/25/25 History powder (Nystop) ketoconazole 2 % topical cream 1 applic topical DAILY #120 grams 04/20/24 02/25/25 Rx digoxin 125 mcg (0.125 mg) tablet 0.125 mg PO HS #90 tabs 09/03/24 02/25/25 Rx tramadol 50 mg tablet 50 mg PO Q8H PRN #9 tabs 11/02/24 02/25/25 Rx furosemide 40 mg tablet See Rx Instructions .Route 12/09/24 02/25/25 Rx .COMPLEX #90 tabs omeprazole 20 mg capsule,delayed See Rx Instructions .Route 12/09/24 02/25/25 Rx release .COMPLEX #90 caps diltiazem HCl 120 mg 120 mg PO DAILY #90 caps 01/13/25 02/25/25 Rx capsule,extended release 24 hr (Cartia XT) apixaban 5 mg tablet (Eliquis) 5 mg PO BID #180 tabs 01/31/25 02/25/25 Rx metoprolol succinate 100 mg 100 mg PO BID #180 tabs 01/31/25 02/25/25 Rx tablet,extended release 24 hr potassium chloride 10 mEq 10 meq PO DAILY #90 tabs 01/31/25 02/25/25 Rx tablet,extended release (Klor-Con) rosuvastatin 5 mg tablet 5 mg PO DAILY #30 tabs 02/24/25 02/25/25 Rx Exam Narrative Exam Narrative: HEENT-normocephalic atraumatic mucous membranes moist oropharynx clear extraocular motions are intact Neck no lymphadenopathy no JVD no thyromegaly Cardiovascular regular rate rhythm no murmur rubs or gallops Lungs clear to auscultation bilaterally with good air exchange Abdomen soft nontender nondistended Extremities no sinus clubbing or edema bilaterally Neurologic nonfocal he has a symmetrical smile and can raise both eyebrows symmetrically. 5 out of 5 strength in upper and lower extremities bilaterally Psych alert and oriented x 3 Results Labs 02/25/25 18:10 02/25/25 18:10 Labs: Laboratory Results - last 24 hr 02/25/25 02/25/25 02/25/25 18:10 18:15 19:28 WBC 5.14 RBC 5.20 Hgb 15.3 Hct 45.4 MCV 87 MCH 29.4 MCHC 33.7 RDW 15.7 H Plt Count 214 MPV 10.5 Immature Gran % 0.2 Neutrophils % 61.1 Lymphocytes % 28.2 Monocytes % 7.2 Eosinophils % 2.7 Basophils % 0.6 Nucleated RBC % 0.0 Absolute Neutrophils 3.14 Absolute Lymphocytes 1.45 Absolute Monocytes 0.37 Absolute Eosinophils 0.14 Absolute Basophils 0.03 ESR 5 PT 11.2 H INR 1.1 APTT 30.0 Sodium 145 Potassium 3.9 Chloride 108 H Carbon Dioxide 28.6 Anion Gap 8.4 BUN 16 Creatinine 1.11 Est GFR (CKD-EPI 2020) 63.56 Glucose 183 H Calcium 8.9 Magnesium 1.9 Total Bilirubin 1.90 H AST 17 ALT 12 Alkaline Phosphatase 97 Troponin I < 3 NT-Pro-B Natriuret Pep 1187 H Total Protein 6.8 Albumin 4.3 Lipase 16 Urine Color Yellow Urine Clarity Clear Urine pH 7.0 Ur Specific [place] 1.020 Urine Protein Negative Urine Ketones Negative Urine Blood Negative Urine Nitrite Negative Urine Bilirubin Negative Urine Urobilinogen 0.2 Ur Leukocyte Esterase Negative Urine Glucose Negative Digoxin 1.01 02/25/25 02/25/25 19:37 20:15 WBC RBC Hgb Hct MCV MCH MCHC RDW Plt Count MPV Immature Gran % Neutrophils % Lymphocytes % Monocytes % Eosinophils % Basophils % Nucleated RBC % Absolute Neutrophils Absolute Lymphocytes Absolute Monocytes Absolute Eosinophils Absolute Basophils ESR PT INR APTT Sodium Potassium Chloride Carbon Dioxide Anion Gap BUN Creatinine Est GFR (CKD-EPI 2020) Glucose Calcium Magnesium Total Bilirubin AST ALT Alkaline Phosphatase Troponin I < 3 < 3 NT-Pro-B Natriuret Pep Total Protein Albumin Lipase Urine Color Urine Clarity Urine pH Ur Specific [place] Urine Protein Urine Ketones Urine Blood Urine Nitrite Urine Bilirubin Urine Urobilinogen Ur Leukocyte Esterase Urine Glucose Digoxin Last Vital Signs Temp 36.2 C L 02/25/25 17:17 Pulse 55 L 02/25/25 19:01 Resp 13 02/25/25 20:00 BP 114/61 02/25/25 19:01 Pulse Ox 98 02/25/25 19:01 Time Spent Time spent with Patient: 55-74 minutes Time was spent: preparing to see the patient(eg.review tests), obtaining and/or reviewing separately otained hiistory, ordering medications,tests, procedures, referring, communicating with other health landcare officer, indepentently interpreting results, counseling the patient and care coordination
--- NOTE | 2025-02-25 22:29 | W.PC.ACHO ---
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 Cervical spondylosis Decreased hearing Diastolic heart failure Esophageal reflux Gilbert's syndrome History of cardioversion Hypertension Male stress incontinence Nephrolithiasis Obesity JUANCARLOS (obstructive sleep apnea) Paroxysmal SVT (supraventricular tachycardia) Restless leg syndrome Tachy-thaddeus syndrome Traumatic rupture of biceps tendon Venous insufficiency (Last Reviewed 02/25/25 @ 17:44 by Jacklyn Neves NP) H/O hemorrhoidectomy H/O Spinal surgery History of cataract surgery History of colonoscopy History of esophagogastroduodenoscopy (EGD) History of intestinal surgery History of surgery History of ureteroscopy Hx of appendectomy Hx of cholecystectomy S/P TURP Most Recent Vital Signs Temperature 36.2 C L 02/25/25 17:17 Pulse 55 L 02/25/25 19:01 Pulse 55 L 02/25/25 20:00 Respiratory Rate 13 02/25/25 20:00 Respiratory Effort Normal 02/25/25 18:19 Respiratory Depth Normal 02/25/25 18:19 Respiratory Pattern Normal 02/25/25 18:19 Blood Pressure 114/61 02/25/25 19:01 Blood Pressure Mean 76 02/25/25 19:01 Pulse Oximetry 98 02/25/25 19:01 Pain Level 0 02/25/25 17:17 Allergies Sulfa (Sulfonamide Antibiotics) Allergy (Verified 02/25/25 17:22) Swelling/Edema hand swelling, redness, pain Penicillins Adverse Reaction (Verified 02/25/25 17:22) Other (See Comment) Unknown Active Medications Generic Name Dose Route Start Last Admin Trade Name Freq PRN Reason Stop Dose Admin Iohexol 100 ml 02/25/25 19:15 02/25/25 19:07 Omnipaque 350 Mg/Ml 100 Ml Btl IJ 03/27/25 23:59 70 ml DIRECTED HAMIDA Administration Sodium Chloride 50 ml 02/25/25 19:15 02/25/25 19:06 Normal Saline - Diluent 50 Ml Vial IJ 50 ml DIRECTED HAMIDA Administration Sodium Chloride 0 ml 02/25/25 19:05 02/25/25 19:06 Normal Saline Flush 10 Ml Syr IVP 10 ml PRN PRN Administration IV IV Catheter Type [Right Saline Lock Forearm] IV Catheter Gauge [Right 18 Forearm] Diet Orders Category Date Time Status Regular/Normal [DIET] Nutrition 02/26/25 Breakfast Ordered Diagnostics 02/25/25 02/25/25 02/25/25 Range/Units 20:15 19:37 19:28 WBC (4.4-10.8) 10^3/uL RBC (4.36-5.78) 10^6/uL Hgb (13.5-17.5) g/dL Hct (40.0-50.0) % MCV (80-95) fL MCH (27.0-33.0) pg MCHC (32.0-36.0) % RDW (11.8-14.1) % Plt Count (130-400) 10^3/uL MPV (8.0-11.0) fL Immature Gran % % Neutrophils % % Lymphocytes % % Monocytes % % Eosinophils % % Basophils % % Nucleated RBC % (0.0-0.3) % Absolute Neutrophils (1.2-6.7) 10^3/uL Absolute Lymphocytes (1.2-3.4) 10^3/uL Absolute Monocytes (0.1-0.8) 10^3/uL Absolute Eosinophils (0.0-0.7) 10^3/uL Absolute Basophils (0.0-0.2) 10^3/uL ESR (0-20) mm/hr PT (9.1-11.1) sec INR (0.9-1.1) APTT (20.6-30.2) sec Sodium (136-145) mmol/L Potassium (3.5-5.1) mmol/L Chloride (98-107) mmol/L Carbon Dioxide (20.0-31.0) mmol/L Anion Gap (3-11) mmol/L BUN (9-23) mg/dL Creatinine (0.73-1.18) mg/dL Est GFR (CKD-EPI 2020) (mL/min/1.73m2) Glucose (74-106) mg/dL Calcium (8.3-10.6) mg/dL Magnesium (1.6-2.6) mg/dL Total Bilirubin (0.2-1.2) mg/dL AST (<34) U/L ALT (10-49) U/L Alkaline Phosphatase (46-116) U/L Troponin I < 3 < 3 (<54) ng/L NT-Pro-B Natriuret Pep (<300) pg/mL Total Protein (5.7-8.2) g/dL Albumin (3.4-5.0) g/dL Lipase (<53) U/L Urine Color Yellow (Yellow) Urine Clarity Clear (Clear) Urine pH 7.0 (5-8) Ur Specific [place] 1.020 (1.005-1.025) Urine Protein Negative (Neg-Trace) mg/dL Urine Ketones Negative (Negative) mg/dL Urine Blood Negative (Negative) Urine Nitrite Negative (Negative) Urine Bilirubin Negative (Negative) Urine Urobilinogen 0.2 (Up to 0.2) mg/dL Ur Leukocyte Esterase Negative (Negative) Urine Glucose Negative (Negative) mg/dL Digoxin (0.80-2.00) ng/mL 02/25/25 02/25/25 Range/Units 18:15 18:10 WBC 5.14 (4.4-10.8) 10^3/uL RBC 5.20 (4.36-5.78) 10^6/uL Hgb 15.3 (13.5-17.5) g/dL Hct 45.4 (40.0-50.0) % MCV 87 (80-95) fL MCH 29.4 (27.0-33.0) pg MCHC 33.7 (32.0-36.0) % RDW 15.7 H (11.8-14.1) % Plt Count 214 (130-400) 10^3/uL MPV 10.5 (8.0-11.0) fL Immature Gran % 0.2 % Neutrophils % 61.1 % Lymphocytes % 28.2 % Monocytes % 7.2 % Eosinophils % 2.7 % Basophils % 0.6 % Nucleated RBC % 0.0 (0.0-0.3) % Absolute Neutrophils 3.14 (1.2-6.7) 10^3/uL Absolute Lymphocytes 1.45 (1.2-3.4) 10^3/uL Absolute Monocytes 0.37 (0.1-0.8) 10^3/uL Absolute Eosinophils 0.14 (0.0-0.7) 10^3/uL Absolute Basophils 0.03 (0.0-0.2) 10^3/uL ESR 5 (0-20) mm/hr PT 11.2 H (9.1-11.1) sec INR 1.1 (0.9-1.1) APTT 30.0 (20.6-30.2) sec Sodium 145 (136-145) mmol/L Potassium 3.9 (3.5-5.1) mmol/L Chloride 108 H (98-107) mmol/L Carbon Dioxide 28.6 (20.0-31.0) mmol/L Anion Gap 8.4 (3-11) mmol/L BUN 16 (9-23) mg/dL Creatinine 1.11 (0.73-1.18) mg/dL Est GFR (CKD-EPI 2020) 63.56 (mL/min/1.73m2) Glucose 183 H (74-106) mg/dL Calcium 8.9 (8.3-10.6) mg/dL Magnesium 1.9 (1.6-2.6) mg/dL Total Bilirubin 1.90 H (0.2-1.2) mg/dL AST 17 (<34) U/L ALT 12 (10-49) U/L Alkaline Phosphatase 97 (46-116) U/L Troponin I < 3 (<54) ng/L NT-Pro-B Natriuret Pep 1187 H (<300) pg/mL Total Protein 6.8 (5.7-8.2) g/dL Albumin 4.3 (3.4-5.0) g/dL Lipase 16 (<53) U/L Urine Color (Yellow) Urine Clarity (Clear) Urine pH (5-8) Ur Specific [place] (1.005-1.025) Urine Protein (Neg-Trace) mg/dL Urine Ketones (Negative) mg/dL Urine Blood (Negative) Urine Nitrite (Negative) Urine Bilirubin (Negative) Urine Urobilinogen (Up to 0.2) mg/dL Ur Leukocyte Esterase (Negative) Urine Glucose (Negative) mg/dL Digoxin 1.01 (0.80-2.00) ng/mL Intake and Output - 24 Hour Total 02/25/25 17:15 thru 02/25/25 17:17 Weight 97.522 kg Falls Risk Assessment History of Falls No History 02/25/25 18:20 Contributing Factors Unstable,Impairments 02/25/25 18:20 Ambulatory Aids Independent 02/25/25 18:20 Tubes/Lines None 02/25/25 18:20 Gait Evaluation No gait disturbance 02/25/25 18:20 Cognition No cognitive impairment 02/25/25 18:20 Fall Total Score 6 02/25/25 18:20 Level of Risk Standard/Low Risk 02/25/25 18:20 Problems (Last Reviewed 02/25/25 @ 17:44 by Jacklyn Neves NP) Atrial fibrillation (Chronic) Bradycardia (Acute) Dysphagia (Acute) Thyroiditis (Acute) TIA (transient ischemic attack) (Acute) Total bilirubin, elevated (Acute) Attestation Statement: By documenting the first initial, last name, and credentials of the reporting nurse below, both parties acknowledge that all relevant information regarding the patient handoff has been communicated, and that all questions have been addressed to ensure continuity and safety of care. Additional Patient Information/Comments: Paged 21:50. Called for report 22:15. Pt arrived to floor 22:29. Pt reports he experienced double vision and feeling off while sitting at his computer. Symptoms resolved prior to ED visit. Imaging relatively benign, but MRI with and without contrast is advised. Housing pt until that time. A&Ox4, swallow test benign, completely independent, including mobility. Experienced HR pauses with thaddeus to 30s in ED, so dig level taken. May make rx adjustments based on findings. Report Received From: Lavinia, ED RN
[2025-02-26 06:33] LABS: HCT 45.8 % (40.0-50.0); HGB 15.8 g/dL (13.5-17.5); MCH 30.0 pg (27.0-33.0); MCHC 34.5 % (32.0-36.0); MCV 87 fL (80-95); MPV 10.8 fL (8.0-11.0); Platelet Count 197 10^3/uL (130-400); RBC 5.26 10^6/uL (4.36-5.78); RDW 15.5 % (11.8-14.1); RDW-SD 49.0 fL; WBC 5.87 10^3/uL (4.4-10.8)
[2025-02-26 06:59] LABS: TSH (W/Ref FT4) 1.65 uIU/mL (0.55-4.78)
[2025-02-26 07:00] LABS: ALT 10 U/L (10-49); AST 15 U/L (<34); Albumin 4.0 g/dL (3.4-5.0); Alkaline Phosphatase 90 U/L (46-116); Anion Gap 10.8 mmol/L (3-11); BUN 15 mg/dL (9-23); Bilirubin, Total 1.90 mg/dL (0.2-1.2); CO2 26.2 mmol/L (20.0-31.0); Calcium 9.0 mg/dL (8.3-10.6); Chloride 110 mmol/L (98-107); Glucose 95 mg/dL (74-106); Potassium 3.8 mmol/L (3.5-5.1); Sodium 147 mmol/L (136-145); Total Protein 6.5 g/dL (5.7-8.2)
[2025-02-26 07:45] VITALS: BP 118/73; PULSE 83; RESP 16; TEMP 36.8; O2SAT 97
--- NOTE | 2025-02-26 08:08 | INITIAL_ITS ---
Date of service: 02/26/25 Time of Service: 08:08 Care Management Initial Assmt Initial Assessment Reason for Hospitalization: Diplopia Functional Status/Living Situation Patient Presentation: Marcus was awake and sitting in a chair when CM met with him. He is polite and easily engaged in conversation. He shared that he resides in [facility] with his sister Rosa. His sister Velia, who lives in [place], is planning to come to the area to spend the with him. Marcus drives and is active and independent at baseline. He is retired, never had children and aside from his sisters has no immediate family Marcus reported that he was feeling off yesterday and experienced a brief episode of double vision, which has since resolved. An MRI was recommended by [facility], but the earliest availability is Friday. Although he had not planned on staying through the weekend, he was agreeable to this plan and appeared pleased when CM provided him with a crossword book to help pass the time. CM will follow. Town of Residence: lives with sister Rosa Resides with: Other (sister Rosa) Significant Other/Family: Local Natural Supports: sisters Velia and Rosa Employment Status: Retired ([employer]) Instrumental Activities of Daily Living (ADLs): Independent Medications Medication Management: No Issues/Barriers identified Physical Functioning/Mobility Assistive Device: Walker Advance Directives Advance Directives: Do you have an Advance Directive: Y , 14:13 AD On File at [facility]: N 02/08/25, 14:13 Date Asked 12/26/24 02/08/25, 12:50 AD Date Reviewed COLST On File at [facility] COLST Date Scanned Code Status Resuscitation Status Full Code Insurance Coverage/Financial Issues Insurance: [facility] Medicare Replacement Care Team Visit Care Team Role Provider Type Reji Arvizu MD MD [facility] STAFF PHYSICIAN Eric Rodriguez, Primary Care Provider OSTEOPATHIC DOCTOR Marisol Mcadams, [facility] Other Providers SPEECH LANGUAGE PATHOLOGIST Lynette Carpenter, [facility] Other Providers SPEECH LANGUAGE PATHOLOGIST Padma Mcguire Other Providers SPEECH LANGUAGE PATHOLOGIST Lashell Gabriel, [facility] Other Providers SPEECH LANGUAGE PATHOLOGIST Earline Rivera, PRINCE Other Providers SPEECH LANGUAGE PATHOLOGIST Jacklyn Neves, GUTIERREZ Emergency Provider NURSE PRACTITIONER Fidel Houston MD Admit Provider [facility] STAFF PHYSICIAN Attending Provider Discharge Potential Discharge Needs: PCP F/U Appt Anticipated Barriers to Discharge: None Identified Patient/Family Education Needs: Review discharge instructions, discuss Ask Me Three Transportation: Private vehicle Plan: MRI is pending for Friday. Anticipate, Marcus will be discharged home on Friday after he has an MRI, if the result is reassuring. Patient will follow up with his community providers and plan of care and transport with family. CM will follow and continue to support discharge planning efforts. Social Determinants of Health Screening Social Determinants of health last assessed in clinic: 02/26/25 Will the Patient Participate in the Screening?: Yes Do you worry about having a steady place to live?: no Problems where you live: no known problems In the past 12 months, have you had to go without electric, gas, oil or water in your home?: no 1. Within the past 12 months, we worried whether our food would run out before we got money to buy more.: Never true 2. Within the past 12 months, the food we bought just didn't last and we didn't have money to get more.: Never true Has lack of transportation kept you from medical appointments or from doing things needed for daily living?: no Has anyone in your life made you feel unsafe or unsupported?: no How hard is it for you to pay for the very basics like food, housing, medical care, and heating? Would you say it is:: Not hard at all Do you want help finding or keeping work or a job?: I do not need or want help If for any reason you need help with day-to-day activities such as bathing, preparing meals, shopping, managing finances, etc., do you get the help you need?: I don?t need any help How often do you feel lonely or isolated from those around you?: Rarely Do you speak a language other than Kinyarwanda at home?: No Does the patient want assistance with any of the above?: No Health Related Social Needs Health related social needs: feeling lonely/isolated (Z60.8) Health related social needs details: Pt does not require assistance PFSH All Active Problems (Updated 02/25/25 @ 21:56 by Fidel Houston MD) Dysphagia (Acute) Total bilirubin, elevated (Acute) Thyroiditis (Acute) Bradycardia (Acute) Pneumocephalus (Acute) TIA (transient ischemic attack) (Acute) Screening for cardiovascular condition (Acute) Epidermal inclusion cyst (Acute) IBS (irritable bowel syndrome) (Chronic ~10/2024) 10/26/24 GI Borborygmi (Acute ~10/2024) 10/26/24 [facility] Abdominal bloating (Acute ~10/2024) 10/26/24 [facility] - tests ordered Mass of subcutaneous tissue of back (Acute) Change in consistency of stool (Acute) Weakness (Acute) Low back pain (Acute) Atrial fibrillation (Chronic) Pain in both feet (Acute) Nail dystrophy (Acute) Onychomycosis (Acute) Impacted cerumen, bilateral (Acute) Hearing loss (Acute) Actinic keratoses (Acute) Tubular adenoma of colon (Acute) Positive WALTER (antinuclear antibody) (Acute) PVC (premature ventricular contraction) (Acute) Medical History History of cardioversion Traumatic rupture of biceps tendon Restless leg syndrome Gilbert's syndrome Bladder outlet obstruction Bladder stone Benign carcinoid tumor of appendix Venous insufficiency JUANCARLOS (obstructive sleep apnea) Obesity Nephrolithiasis Male stress incontinence Hypertension Esophageal reflux Diastolic heart failure Decreased hearing Cervical spondylosis BPH with urinary obstruction Bladder spasms Cervical spine disease Tachy-thaddeus syndrome Paroxysmal SVT (supraventricular tachycardia) Surgical History History of intestinal surgery Cecal resection H/O Spinal surgery Lumbar Hx of appendectomy Hx of cholecystectomy S/P TURP History of ureteroscopy Electrohydrodraulic lithotripsy of calculus of ureter History of esophagogastroduodenoscopy (EGD) H/O hemorrhoidectomy History of cataract surgery 11/2018 History of surgery Excision of cyst History of colonoscopy Family History Sister Cancer of kidney Diabetes Afib Mother Heart disease Afib Maternal Grandmother Heart disease Afib Social History Smoking/Tobacco Use Status: Never Second Hand Exposure: Yes Smoking risk assessment performed?: Yes Alcohol Intake: never Drug use: Never Substance use type: does not use Adopted: No Caregiver/Support person: No Foster care: No Household members: family Housing: house Number of Children: 0 number of grandchildren: 0 Communication Needs: Hard of Hearing and Corrective Lenses Education Level: high school Do you need help understanding health information?: Rarely current occupation: retired Pets and animals: Yes (1) Pets and animals: cat(s) Sexually active: No Do you think of yourself as: straight/heterosexual Current gender identity: male What is your relationship status?: never How often do you talk on the phone with friends or family?: three or more times per week How often do you get together with friends or relatives?: once per week Do you belong to any clubs or organized social groups?: no Panel score (0-1 are the most socially isolated patients): 1 What type of physical activity do you participate in: none Duration: < 15 minutes/day Frequency: 1-2 times per week Keeley/Scientology: Scientology Special keeley needs: No Seatbelt use: always Helmet use: No Drive intox or ride w/intox trash truck driver: No Do you feel safe at home: Yes Do you feel safe in your relationship?: Yes
[2025-02-26] MEDS: dilTIAZem CD 120 MG CAPCR PO (08:39)
[2025-02-26] MEDS: Metoprolol CR 100 MG TABCR PO ×2 (08:39→21:06)
[2025-02-26] MEDS: Apixaban 5 MG TAB PO ×2 (08:39→21:06)
[2025-02-26] MEDS: Furosemide 40 MG TAB PO (08:44)
[2025-02-26] MEDS: Normal Saline Flush 10 ML SYR IVP ×2 (10:47→21:07)
--- NOTE | 2025-02-26 11:05 | PHA.REVIEW2 ---
Pharmacy Admission Review Admission Clinical Review Admission Pharmacy Review: Dysphagia (Acute) Total bilirubin, elevated (Acute) Thyroiditis (Acute) Bradycardia (Acute) TIA (transient ischemic attack) (Acute) Sulfa (Sulfonamide Antibiotics) Allergy (Verified 02/25/25 17:22) Swelling/Edema Penicillins Adverse Reaction (Verified 02/25/25 17:22) Other (See Comment) Resuscitation Status Full Code Height 5 ft 11 in Weight 97.5 kg Pharmacy Admission Review Renal Dosing Renal Dosing: BUN 15 mg/dL (9-23) 02/26/25 06:07 Creatinine 1.07 mg/dL (0.73-1.18) 02/26/25 06:07 Medications needing adjustments: Reviewed (CrCl 64 mL/min) List of meds needing interventions: Current medications are okay Anticoagulation Anticoagulation: Hgb 15.8 g/dL (13.5-17.5) 02/26/25 06:07 Hct 45.8 % (40.0-50.0) 02/26/25 06:07 Plt Count 197 10^3/uL (130-400) 02/26/25 06:07 INR 1.1 (0.9-1.1) 02/25/25 18:10 Creatinine 1.07 mg/dL (0.73-1.18) 02/26/25 06:07 DVT Prophylaxis: Reviewed Medications: Apixaban (5mg BID) Relevant Labs Relevant Labs: ESR 5 mm/hr (0-20) 02/25/25 18:15 Sodium 147 mmol/L (136-145) H 02/26/25 06:07 Potassium 3.8 mmol/L (3.5-5.1) 02/26/25 06:07 Chloride 110 mmol/L (98-107) H 02/26/25 06:07 Magnesium 1.9 mg/dL (1.6-2.6) 02/25/25 18:10 Electrolytes, C-Reactive P, ESR: Reviewed Cardiac Review Cardiac Review: Troponin I < 3 ng/L (<54) 02/25/25 20:15 NT-Pro-B Natriuret Pep 1187 pg/mL (<300) H 02/25/25 18:10 BP, HR, EF%: Reviewed (BP and HR WNL) List meds needing interventions: Has orders for digoxin 0.125mg daily, diltiazem CD 120mg daily, furosemide 40mg daily and metoprolol XL 100mg daily QTc Review QTc: Reviewed (EKG report pending from 02/25/25, was 415 from 05/25/24) IV to PO Switch IV Medications: Reviewed Home Meds Home Med List reviewed: Intervened Relevent Home Meds Not ordered & why?: omeprazole - asked provider if this is being held. Provider looking into it, waiting to hear back. Current Meds Current Medication Order Review: Intervened Comments: Changed IV ED access order
--- NOTE | 2025-02-26 15:01 | W.PM.PROGNOT ---
Date of Service Date of service: 02/26/25 Time of Service: 15:01 Assessment and Plan Assessment and plan (1) TIA (transient ischemic attack): Status: Acute Assessment and plan: - Patient initially presented with diplopia that has since resolved - Unsure if this is TIA or CVA - Will obtain MRI on Friday - Head CT showed a subtle left-sided hypodensity within the CSF adjacent to the superior sagittal sinus and a similar appearing hypodensity centrally within the superior sagittal sinus, suggestive of small focus of venous gas within draining dural vein and within the superior sagittal sinus, may have been associated with iatrogenic introduction of gas during IV cannulation, recommend MRI -Given concern for TIA, patient has been started on high-dose statin (2) Atrial fibrillation: Status: Chronic Assessment and plan: -continue home Eliquis - Holding beta-katya as patient was somewhat bradycardic overnight (3) Hypertension: Assessment and plan: -Continuing home Lasix and diltiazem (4) Bradycardia: Status: Acute Assessment and plan: - As noted above (5) Total bilirubin, elevated: Status: Acute Assessment and plan: - 1.9 at admission - Stable at 1.9 on the morning of 02/26/2025 - Will follow-up a.m. BMP (6) Dysphagia: Status: Acute Assessment and plan: -Patient does report a history of dysphagia of late. - Follow-up speech consult when available Subjective Subjective Interval history since last seen: Patient states that his symptoms were resolved. However, given somewhat concerning findings on CT he would prefer to remain admitted in the hospital and have his MRI done on Friday. Otherwise he has no other complaints or concerns at this time. Exam Narrative Exam Narrative: Well-appearing gentleman sitting up in the chair no acute distress, ANO x 4, heart regulate rhythm, lungs good auscultation bilaterally, abdomen soft, nontender, nondistended, normal sensation and strength in bilateral upper and lower extremities, cranial nerves II through XII intact Objective Last Vital Signs Temp 98.2 F 02/26/25 07:45 Pulse 83 02/26/25 07:45 Resp 16 02/26/25 07:45 BP 118/73 02/26/25 07:45 Pulse Ox 97 02/26/25 07:45 Laboratory Results - last 24 hr 02/25/25 02/25/25 02/25/25 18:10 18:15 19:28 WBC 5.14 RBC 5.20 Hgb 15.3 Hct 45.4 MCV 87 MCH 29.4 MCHC 33.7 RDW 15.7 H Plt Count 214 MPV 10.5 Immature Gran % 0.2 Neutrophils % 61.1 Lymphocytes % 28.2 Monocytes % 7.2 Eosinophils % 2.7 Basophils % 0.6 Nucleated RBC % 0.0 Absolute Neutrophils 3.14 Absolute Lymphocytes 1.45 Absolute Monocytes 0.37 Absolute Eosinophils 0.14 Absolute Basophils 0.03 ESR 5 PT 11.2 H INR 1.1 APTT 30.0 Sodium 145 Potassium 3.9 Chloride 108 H Carbon Dioxide 28.6 Anion Gap 8.4 BUN 16 Creatinine 1.11 Est GFR (CKD-EPI 2020) 63.56 Glucose 183 H Calcium 8.9 Magnesium 1.9 Total Bilirubin 1.90 H AST 17 ALT 12 Alkaline Phosphatase 97 Troponin I < 3 NT-Pro-B Natriuret Pep 1187 H Total Protein 6.8 Albumin 4.3 Lipase 16 TSH Urine Color Yellow Urine Clarity Clear Urine pH 7.0 Ur Specific [place] 1.020 Urine Protein Negative Urine Ketones Negative Urine Blood Negative Urine Nitrite Negative Urine Bilirubin Negative Urine Urobilinogen 0.2 Ur Leukocyte Esterase Negative Urine Glucose Negative Digoxin 1.01 02/25/25 02/25/25 02/26/25 19:37 20:15 06:07 WBC 5.87 RBC 5.26 Hgb 15.8 Hct 45.8 MCV 87 MCH 30.0 MCHC 34.5 RDW 15.5 H Plt Count 197 MPV 10.8 Immature Gran % Neutrophils % Lymphocytes % Monocytes % Eosinophils % Basophils % Nucleated RBC % Absolute Neutrophils Absolute Lymphocytes Absolute Monocytes Absolute Eosinophils Absolute Basophils ESR PT INR APTT Sodium 147 H Potassium 3.8 Chloride 110 H Carbon Dioxide 26.2 Anion Gap 10.8 BUN 15 Creatinine 1.07 Est GFR (CKD-EPI 2020) 66.31 Glucose 95 Calcium 9.0 Magnesium Total Bilirubin 1.90 H AST 15 ALT 10 Alkaline Phosphatase 90 Troponin I < 3 < 3 NT-Pro-B Natriuret Pep Total Protein 6.5 Albumin 4.0 Lipase TSH 1.65 Urine Color Urine Clarity Urine pH Ur Specific [place] Urine Protein Urine Ketones Urine Blood Urine Nitrite Urine Bilirubin Urine Urobilinogen Ur Leukocyte Esterase Urine Glucose Digoxin Time Spent with Patient Time Spent with Patient: >50 minutes Time was spent: preparing to see the patient(eg.review tests), obtaining and/or reviewing separately otained hiistory, ordering medications,tests, procedures, referring, communicating with other health career resource specialist, indepentently interpreting results, counseling the patient and care coordination
[2025-02-26] MEDS: Potassium Chloride 10 MEQ CAPCR PO (17:19)
[2025-02-26 19:05] VITALS: BP 116/59; PULSE 78; RESP 16; TEMP 36.4; O2SAT 98
[2025-02-26 21:06] VITALS: PULSE 78
[2025-02-26] MEDS: Digoxin 0.125 MG TAB PO (21:06)
[2025-02-26] MEDS: Rosuvastatin 5 MG TAB PO (21:06)
[2025-02-26] MEDS: Omeprazole 20 MG CAPCR PO (22:34)
[2025-02-27 07:06] VITALS: BP 113/58; PULSE 73; RESP 16; TEMP 36.8; O2SAT 97
[2025-02-27] MEDS: Metoprolol CR 100 MG TABCR PO (08:38)
[2025-02-27] MEDS: dilTIAZem CD 120 MG CAPCR PO (08:38)
[2025-02-27] MEDS: Apixaban 5 MG TAB PO ×2 (08:38→19:58)
[2025-02-27] MEDS: Normal Saline Flush 10 ML SYR IVP ×3 (08:38→20:01)
[2025-02-27] MEDS: Furosemide 40 MG TAB PO (08:38)
--- NOTE | 2025-02-27 09:23 | W.PM.PROGNOT ---
Date of Service Date of service: 02/27/25 Time of Service: 09:24 Assessment and Plan Assessment and plan (1) TIA (transient ischemic attack): Status: Acute Assessment and plan: - Patient initially presented with diplopia that has since resolved - Unsure if this is TIA or CVA - Will obtain MRI on Friday - Head CT showed a subtle left-sided hypodensity within the CSF adjacent to the superior sagittal sinus and a similar appearing hypodensity centrally within the superior sagittal sinus, suggestive of small focus of venous gas within draining dural vein and within the superior sagittal sinus, may have been associated with iatrogenic introduction of gas during IV cannulation, recommend MRI -Given concern for TIA, patient has been started on high-dose statin (2) Atrial fibrillation: Status: Chronic Assessment and plan: -continue home Eliquis - Holding beta-katya as patient was somewhat bradycardic overnight (3) Hypertension: Assessment and plan: -Continuing home Lasix and diltiazem (4) Bradycardia: Status: Acute Assessment and plan: - As noted above (5) Total bilirubin, elevated: Status: Acute Assessment and plan: - 1.9 at admission - Stable at 1.9 on the morning of 02/26/2025 - Will follow-up a.m. BMP (6) Dysphagia: Status: Acute Assessment and plan: -Patient does report a history of dysphagia of late. - Follow-up speech consult when available Subjective Subjective Interval history since last seen: Patient states that he is doing well today and is looking forward to having his MRI tomorrow. Otherwise he has no other complaints or concerns at this time. Exam Narrative Exam Narrative: Well-appearing gentleman sitting up in the chair no acute distress, ANO x 4, heart regulate rhythm, lungs good auscultation bilaterally, abdomen soft, nontender, nondistended, normal sensation and strength in bilateral upper and lower extremities, cranial nerves II through XII intact Objective Last Vital Signs Temp 98.3 F 02/27/25 07:06 Pulse 73 02/27/25 07:06 Resp 16 02/27/25 07:06 BP 113/58 L 02/27/25 07:06 Pulse Ox 97 02/27/25 07:06 Time Spent with Patient Time Spent with Patient: >50 minutes Time was spent: preparing to see the patient(eg.review tests), obtaining and/or reviewing separately otained hiistory, ordering medications,tests, procedures, referring, communicating with other health insurance healthcare consultant, indepentently interpreting results, counseling the patient and care coordination
[2025-02-27] MEDS: Acetaminophen 500 MG TAB PO (09:26)
[2025-02-27 11:26] VITALS: BP 106/58; PULSE 68; RESP 16; TEMP 36.8; O2SAT 96
[2025-02-27] MEDS: Potassium Chloride 10 MEQ CAPCR PO (18:03)
[2025-02-27 19:37] VITALS: BP 122/72; PULSE 67; RESP 16; TEMP 36.3; O2SAT 98
[2025-02-27 19:56] VITALS: PULSE 70
[2025-02-27] MEDS: Rosuvastatin 5 MG TAB PO (19:56)
[2025-02-27] MEDS: Omeprazole 20 MG CAPCR PO (19:56)
[2025-02-27] MEDS: Digoxin 0.125 MG TAB PO (19:56)
[2025-02-27 20:30] VITALS: PULSE 67
--- NOTE | 2025-02-28 | DI.MRI_ITS ---
Exam(s) MR BRAIN WO/W EXAM: MR BRAIN WO/W CLINICAL HISTORY: cva TECHNIQUE: Multiplanar multisequence MRI of the brain was performed. CONTRAST MATERIAL: IV Contrast: 20 mL of Dotarem contrast administered. COMPARISON: MR MR BRAIN WO from 12/27/[address] BRAIN NECK CTA from 02/25/2025 FINDINGS: VENTRICLES AND EXTRA AXIAL SPACES: Normal in size and morphology for the patient's age. HEMORRHAGE: None. CEREBRAL PARENCHYMA: No focus of restricted diffusion to suggest acute infarct. No space-occupying lesion identified. There are few scattered areas of hyperintense signal seen in the white matter most consistent with chronic microvascular ischemic disease. MIDLINE SHIFT: None. BRAINSTEM/CEREBELLUM: Normal. CALVARIUM: Normal. ENHANCEMENT: No suspicious enhancement identified. VISUALIZED PARANASAL SINUSES/MASTOIDS: There is a tiny mucous retention cyst in the right maxillary sinus. The remaining visualized paranasal sinuses are clear. [place]: Normal flow void. PITUITARY GLAND: Unremarkable. OTHER FINDINGS: IMPRESSION: 1. There is no evidence of an acute infarct, intracranial mass or enhancing lesion. 2. Findings most consistent with chronic microvascular ischemic disease. DATA REPOSITORY:
[2025-02-28 07:29] VITALS: BP 117/49; PULSE 75; RESP 16; TEMP 36.5; O2SAT 97
--- NOTE | 2025-02-28 08:14 | STREC_ITS ---
Date of service: 02/28/25 Time of Service: 08:14 Speech Therapy Recommendations Report ST Recommendations: Swallow evaluation ordered on Friday02/25/25, with note of non-urgent. No SALES RESEARCH ANALYST on site until today. Per chart review and pt's nurse, pt has been managing a r egular consistencies diet and thin liquids without difficulty. He denies any history of dysphagia and any concern. SALES RESEARCH ANALYST briefly saw pt, who was eating breakfast when SALES RESEARCH ANALYST arrived to the room. He denied concerns and expected to be discharged today. Swallow evaluation not needed at this time. Nursing is encouraged to contact SALES RESEARCH ANALYST department with any new concerns or questions.
--- NOTE | 2025-02-28 08:14 | PDOC.STREC ---
Date of service: 02/28/25 Time of Service: 08:14 Speech Therapy Recommendations Report ST Recommendations: Swallow evaluation ordered on Friday02/25/25, with note of non-urgent. No SUPERVISOR GLUING on site until today. Per chart review and pt's nurse, pt has been managing a regular consistencies diet and thin liquids without difficulty. He denies any history of dysphagia and any concern. SUPERVISOR GLUING briefly saw pt, who was eating breakfast when SUPERVISOR GLUING arrived to the room. He denied concerns and expected to be discharged today. Swallow evaluation not needed at this time. Nursing is encouraged to contact SUPERVISOR GLUING department with any new concerns or questions.
[2025-02-28] MEDS: Gadoterate meglumine 20 ML SYRINGE IVP (08:54)
[2025-02-28] MEDS: Normal Saline Flush 10 ML SYR IVP ×2 (08:55→09:42)
[2025-02-28] MEDS: dilTIAZem CD 120 MG CAPCR PO (09:39)
[2025-02-28] MEDS: Furosemide 40 MG TAB PO (09:39)
[2025-02-28] MEDS: Apixaban 5 MG TAB PO (09:41)
[2025-02-28] MEDS: Acetaminophen 500 MG TAB PO (10:27)
--- NOTE | 2025-02-28 12:08 | PT.INIE ---
PT Notes Visit Reasons: Diploplia Physical Therapy Inpatient Initial Evaluation Date: 02/28/2025 Referring Doctor: Reji Arvizu MD PT Orders: PT CONSULT: Eval/Treat Precautions: Fall. Standard. Activity as tolerated. Patient Profile/Admitting Diagnosis: Marcus is an 80-year-old male patient who presented to the ED on 02/25/2025 with chief complaints of double vision, feeling off and warm feeling in his chest. He was admitted for further monitoring and management of suspected TIA vs CVA, AF, HTN, bradycardia, and dysphagia. PMHX: All Active Problems (Updated 02/25/25 @ 21:56 by Fidel Houston MD) Dysphagia (Acute) Total bilirubin, elevated (Acute) Thyroiditis (Acute) Bradycardia (Acute) Pneumocephalus (Acute) TIA (transient ischemic attack) (Acute) Screening for cardiovascular condition (Acute) Epidermal inclusion cyst (Acute) IBS (irritable bowel syndrome) (Chronic ~10/2024) 10/26/24 GI Borborygmi (Acute ~10/2024) 10/26/24 [facility] [place] GI Abdominal bloating (Acute ~10/2024) 10/26/24 [facility] GI - tests ordered Mass of subcutaneous tissue of back (Acute) Change in consistency of stool (Acute) Weakness (Acute) Low back pain (Acute) Atrial fibrillation (Chronic) Pain in both feet (Acute) Nail dystrophy (Acute) Onychomycosis (Acute) Impacted cerumen, bilateral (Acute) Hearing loss (Acute) Actinic keratoses (Acute) Tubular adenoma of colon (Acute) Positive WALTER (antinuclear antibody) (Acute) PVC (premature ventricular contraction) (Acute) Medical History History of cardioversion Traumatic rupture of biceps tendon Restless leg syndrome Gilbert's syndrome Bladder outlet obstruction Bladder stone Benign carcinoid tumor of appendix Venous insufficiency JUANCARLOS (obstructive sleep apnea) Obesity Nephrolithiasis Male stress incontinence Hypertension Esophageal reflux Diastolic heart failure Decreased hearing Cervical spondylosis BPH with urinary obstruction Bladder spasms Cervical spine disease Tachy-thaddeus syndrome Paroxysmal SVT (supraventricular tachycardia) Surgical History History of intestinal surgery Cecal resectionH/O Spinal surgery LumbarHx of appendectomy Hx of cholecystectomy S/P TURP History of ureteroscopy Electrohydrodraulic lithotripsy of calculus of ureterHistory of esophagogastroduodenoscopy (EGD) H/O hemorrhoidectomy History of cataract surgery 11/2018 History of surgery Excision of cystHistory of colonoscopy Social History/Home Situation: Independent with all aspects of ADLs prior to admission. Does not currently use an assistive device with all mobility tasks. Equipment Owned/DME: [facility] Subjective: Verbalized that he has ahd chroninclimitation in his ability to bend forward and put on socks and pants. Hopeful that he can have help with techniques and devices that he could use ot help him with lower body dressing. Objective: General Observation: Seated at edge of chair Mental Status: Alert and oriented as to person, place, time, and purpose. Able to pay attention, focus, and respond appropriately. Pain: 3-4/10 in the low back Vital Signs: Closely monitored by nursing staff ROM: Right Upper Extremity: Shoulder Flexion WFL. Shoulder abduction WFL. Elbow flexion WFL. Wrist flexion WFL. Functional opening and closing of hand WFL. Left Upper Extremity: Shoulder Flexion WFL. Shoulder abduction WFL. Elbow flexion WFL. Wrist flexion WFL. Functional opening and closing of hand WFL. Right Lower Extremity: Hip flexion WFL. Hip abduction WFL. Knee flexion WFL. Ankle dorsiflexion WFL. Ankle plantarflexion WFL. Left Lower Extremity: Hip flexion WFL. Hip abduction WFL. Knee flexion WFL. Ankle dorsiflexion WFL. Ankle plantarflexion WFL. Strength: Right Upper Extremity: Shoulder flexors 5/5. Shoulder abductors 5/5. Elbow flexors 5/5. Elbow extensors 5/5. Naval Inspector strong. Left Upper Extremity: Shoulder flexors 5/5. Shoulder abductors 5/5. Elbow flexors 5/5. Elbow extensors 5/5. Naval Inspector strong. Right Lower Extremity: Hip flexors 4-/5. Hip abductors 4-/5. Knee flexors 4-/5. Knee extensors 4/5. Ankle dorsiflexors 4/5. Ankle plantarflexors 5/5. Left Lower Extremity: Hip flexors 4-/5. Hip abductors 4-/5. Knee flexors 4-/5. Knee extensors 4/5. Ankle dorsiflexors 4/5. Ankle plantarflexors 5/5. Bed Mobility/Transfers: Independent Gait: 350 feet with modified independent. No AD needed. No report of increased pain. No path deviation. No LOB. No SOB. Balance: Static Sitting: Normal Dynamic Sitting: Normal Static Standing: Fair Dynamic Standing: Fair 4-Stage balance Test: Feet together 10 seconds Semi-tandem 10 seconds Full Tandem 10 seconds One leeged stance with R foot 10 secpnds One legged stance with L foot 4 seconds 30-second chair rise score: 10x Special Tests: Mobility Limitations Standardized Measure [facility] AM-PAC 6 clicks Basic Mobility Inpatient Short Form: Raw Score: 24 CMS Score: 0% deficit Informed Consent/Education: Patient was instructed in purpose of PT consult and plan of care. Agreeable to proceed with established PT POC to achieve personal goals. Assessment: Strength symmetric in B UE/LE.Patient with chronic difficulty to perform lower body dressing due to difficulty with bending forward both in seated and in standing resulting from previous back issues and surgeries as well as chronic tightness in B hams. Patient presents with clinical signs and symptoms consistent with current/admitting diagnoses that have resulted to mobility limitationsas demonstrated by the following impairment level findings: 1. B hamstring tightness 2. B trunk flexor weakness 3. Impaired activity tolerance 4. Chronic low back pain Impairments are contributing to the following functional limitations: 1. Inability to safely and efficiently perform lower body dressing 2. Increased time spent for ADL performance Patient is assessed as a 20997 moderate complexity based on the following: History: 80-year-old male with past medical history as indicated above Examination: Limitation in lumbar flexion and hip flexion, chronic Presentation: Stable Decision Makin low complexity Goals: Goals X1 week 1. Independent gait on level surface with use of no assistive device for at least 1000 feet without report of pain nor dyspnea 2. Independent stair negotiation while holding onto no rails for at least 12 steps without report of pain nor dyspnea 3. Independent with home exercise program 4. Good static and dynamic standing balance/tolerance Plan of Care/Treatment Plan: 1-2x/day, 7 days/week x 1 week. Plan of care has been reviewed with the DECK AND HULL ASSEMBLER providing the service under Physical Therapy direction. Initiate Physical Therapy intervention for pain management as needed, strengthening, bed mobility, transfers, gait, stairs, balance training, and use of assistive device. THERA ACT: Education and training will be provided before patient discharges home today Access Code: [email or web address] URL: [email or web address] Date: 02/28/2025 Prepared by: Brittanie Yin Exercises - Hooklying Active Hamstring Stretch - 1 x daily - 7 x weekly - 1 sets - 10 reps - 5 hold - Figure 4 Bridge - 1 x daily - 7 x weekly - 1 sets - 10 reps - 5 hold - Seated Table Hamstring Stretch - 1 x daily - 7 x weekly - 1 sets - 10 reps - 5 hold - Seated Hamstring Stretch - 1 x daily - 7 x weekly - 1 sets - 10 reps - 5 hold - Standing Hamstring Stretch with Step - 1 x daily - 7 x weekly - 1 sets - 10 reps - 5 hold DISCHARGE RECOMMENDATIONS: Home when medically cleared by hospitalist. Continue with MSP at OP clinic upon discharge. Will beenfit from OT evaluation for lower body dressing techniques and assistive devices. TREATMENT CODE/TIME: 82405 x 25 minutes for 1 unit (11:35-12:00). Thank you for the opportunity to participate in the care of this patient. Brittanie Yin PT, DPT, CLT [facility] [place], [place]
[2025-02-28] MEDS: Ketoconazole 2% CREAM 15 GM TUBE TP (12:33)
--- NOTE | 2025-02-28 12:36 | CMDISCH_ITS ---
Date of service: 02/28/25 Time of Service: 12:36 LACE Index Scoring Tool Questions: Length of Stay (in days): 3 Was the patient admitted via the E.D.?: Yes E.D. Visits: 1 Answers: Total Score: 7 Risk of Readmission: Low Risk Care Management Discharge Plan Reason for Hospitalization: TIA - double vision Discharge Plan: Marcus will discharge home this afternoon with no new home care services. He will f/u with his PCP and continue per his plan of care. Marcus will transport home in a private vehicle. Patient/Family Education Needs: Review of discharge instructions, activity, limitations and discuss Ask me 3. SDOH Health Related Social Needs: Health related social needs lonely/isolated Health related social needs details Pt does not requir e assistance Health related social needs details: Pt does not require assistance
--- NOTE | 2025-02-28 13:35 | PT.INTREAT ---
PT Notes Visit Reasons: Diploplia Physical Therapy Inpatient Treatment Note Date: 02/28/2025 Precautions: Fall. Standard. Activity as tolerated. Subjective: Confident about going home this afternoon. Agreeable to learning hamstring stretches for this afternoon session. Objective: General Observation: Seated at edge of chair Mental Status: Alert and oriented as to person, place, time, and purpose. Able to pay attention, focus, and respond appropriately. Pain: None reported Vital Signs: Closely monitored by nursing staff Bed Mobility/Transfers: Independent Gait: Independent inside room without device. No report of increased pain. No path deviation. No LOB. No SOB. Balance: Static Sitting: Normal Dynamic Sitting: Normal Static Standing: Fair Dynamic Standing: Fair THERA EX: Introduced and provided direct instruction and training on hamstring stretches exercises. Provided patient a written copy of said exercises. Access Code: [email or web address] URL: [email or web address] Date: 02/28/2025 Prepared by: Brittanie Yin Exercises - Hooklying Active Hamstring Stretch - 1 x daily - 7 x weekly - 1 sets - 10 reps - 5 hold - Figure 4 Bridge - 1 x daily - 7 x weekly - 1 sets - 10 reps - 5 hold - Seated Table Hamstring Stretch - 1 x daily - 7 x weekly - 1 sets - 10 reps - 5 hold - Seated Hamstring Stretch - 1 x daily - 7 x weekly - 1 sets - 10 reps - 5 hold - Standing Hamstring Stretch with Step - 1 x daily - 7 x weekly - 1 sets - 10 reps - 5 hold Assessment: Demonstrated good ability to execute HEP as instructed and appreciated provision of a written copy by PT of said exercises. Strength symmetric in B UE/LE. Patient with chronic difficulty to perform lower body dressing due to difficulty with bending forward both in seated and in standing resulting from previous back issues and surgeries as well as chronic tightness in B hams. DISCHARGE RECOMMENDATIONS: Home when medically cleared by hospitalist. Continue with MSP at OP clinic upon discharge. Will beenfit from OT evaluation for lower body dressing techniques and assistive devices. TREATMENT CODE/TIME: 12359 x 20 minutes for 1 unit (13:35-13:55).
--- NOTE | 2025-02-28 13:49 | DSE_ITS ---
Date of service: 02/28/25 Time of Service: 13:49 DS: Diagnosis Discharge Diagnosis (1) TIA (transient ischemic attack): Status: Acute (2) Atrial fibrillation: Status: Chronic (3) Hypertension: (4) Bradycardia: Status: Acute (5) Total bilirubin, elevated: Status: Acute (6) Dysphagia: Status: Acute Discharge Plan Disposition Patient Disposition: Home Condition: Good Discharge Details Reason For Visit: Diploplia Admit Date/Time: 02/25/25 21:39 Admit Provider: Fidel Houston Attending Provider: Fidel Houston Primary Care Provider: [facility] Course Hospital Course: Patient initially presented with signs and symptoms of diplopia concerning for CVA. He had a CT head that showed some concerning findings though ultimately MRI was without any acute findings. Patient was able to work with occupational therapy and was set up with occupational therapy.. At which time it was determined the patient was stable for discharge home. Additionally, he did have some periods of bradycardia overnight with heart rates going into the low 40s. Therefore, it was recommended that he cut his Lopressor dose in half and have close follow-up with his application project leader. Home Meds and New Rx's Prescriptions: Continued acetaminophen 500 mg capsule 500 mg PO Q6H PRN ketoconazole 2 % cream 1 applic topical DAILY Qty: 120 6RF Rx Instructions: Apply to toenails once daily digoxin 125 mcg (0.125 mg) tablet 0.125 mg PO HS Qty: 90 3RF furosemide 40 mg tablet See Rx Instructions .ROUTE .COMPLEX Qty: 90 3RF Dose Instruction: TAKE 1 TABLET BY MOUTH DAILY Rx Instructions: TAKE 1 TABLET BY MOUTH DAILY omeprazole 20 mg capsule,delayed release(DR/EC) See Rx Instructions .ROUTE .COMPLEX Qty: 90 3RF Dose Instruction: TAKE 1 CAPSULE BY MOUTH DAILY Rx Instructions: TAKE 1 CAPSULE BY MOUTH DAILY diltiazem HCl [Cartia XT] 120 mg capsule,extended release 24hr 120 mg PO DAILY Qty: 90 3RF potassium chloride [Klor-Con 10] 10 mEq tablet extended release 10 meq PO DAILY Qty: 90 3RF Eliquis 5 mg tablet 5 mg PO BID Qty: 180 3RF Patient Comments: evening dose rosuvastatin 5 mg tablet 5 mg PO DAILY Qty: 30 3RF nystatin [Nystop] 100,000 unit/gram powder 1 applic topical BID PRN tramadol 50 mg tablet 50 mg PO Q8H PRNQty: 9 0RF Rx Instructions: Take 1 tablet by mouth if needed for more severe pain Changed metoprolol succinate 100 mg tablet extended release 24 hr 50 mg PO BID Qty: 180 3RF Discharge Instructions Stand Alone Forms: Portal Information Activity:: Activity as Tolerated Equipment/Supplies:: No Equipment Needed Diet:: As Tolerated Discharge Orders Discharge Orders: Discharge Order (Routine); Ordered 02/28/25 Ordered By: Reji Arvizu DS: Summary Time Spent with Patient providing and/or coordinating discharge services: Greater than 30 minutes Status at Discharge Functional status at discharge: independent ambulation Overall status at discharge: patient is back to baseline Mental Status: mental status grossly normal Speech and Movement: speech and movement normal Mood: congruent mood Affect: normal affect Quality:SDOH Health Related Social Needs: Health related social needs lonely/isolated Health related social needs details Pt does not requir e assistance Health related social needs details: Pt does not require assistance Exam Narrative Exam Narrative: Well-appearing gentleman sitting up in the chair no acute distress, ANO x 4, heart regulate rhythm, lungs good auscultation bilaterally, abdomen soft, nontender, nondistended, normal sensation and strength in bilateral upper and lower extremities, cranial nerves II through XII intact Psych Mental Status: mental status grossly normal Speech and Movement: speech and movement normal Mood: congruent mood Affect: normal affect DS: Data Vitals/I&O Vitals and I&O: Vital Signs Temperature 97.7 F 02/28/25 07:29 Temperature Source Temporal Artery Scan 02/28/25 07:29 Pulse 75 02/28/25 07:29 Pulse 55 L 02/25/25 20:00 Respiratory Rate 16 02/28/25 07:29 Respiratory Effort Normal, Non-Labored 02/25/25 22:34 Respiratory Depth Normal 02/25/25 22:34 Respiratory Pattern Normal 02/25/25 22:34 Blood Pressure 117/49 L 02/28/25 07:29 Blood Pressure Mean 71 02/28/25 07:29 Pulse Oximetry 97 02/28/25 07:29 Oxygen Delivery Method Room Air 02/28/25 07:29 Oxygen Flow Rate 0 02/28/25 07:29 Pain Level 2 02/28/25 10:27 Comment rn notified 02/27/25 11:26 Intake & Output 02/27/25 02/28/25 02/28/25 17:59 05:59 17:59 Intake Total 240 / 240 370 / 610 480 / 480 Output Total 200 / 200 250 / 250 Balance 240 / 240 170 / 410 230 / 230 Weight 215 lb 13.321 oz 217 lb 6.4 oz Intake: IV Oral 240 / 240 360 / 600 480 / 480 Output: Urine 200 / 200 250 / 250 Other: Urine Color Light Stephanie Yellow Urine Appearance Clear Urine Odor Normal Comment pT stated hes urinated voids independently Stool Size Moderate Stool Characteristics Soft Formed Data Completed and Pending Pending Labs at Discharge: 02/25/25 02/25/25 02/25/25 18:10 18:15 19:28 WBC 5.14 RBC 5.20 Hgb 15.3 Hct 45.4 MCV 87 MCH 29.4 MCHC 33.7 RDW 15.7 H Plt Count 214 MPV 10.5 Immature Gran % 0.2 Neutrophils % 61.1 Lymphocytes % 28.2 Monocytes % 7.2 Eosinophils % 2.7 Basophils % 0.6 Nucleated RBC % 0.0 Absolute Neutrophils 3.14 Absolute Lymphocytes 1.45 Absolute Monocytes 0.37 Absolute Eosinophils 0.14 Absolute Basophils 0.03 ESR 5 PT 11.2 H INR 1.1 APTT 30.0 Sodium 145 Potassium 3.9 Chloride 108 H Carbon Dioxide 28.6 Anion Gap 8.4 BUN 16 Creatinine 1.11 Est GFR (CKD-EPI 2020) 63.56 Glucose 183 H Calcium 8.9 Magnesium 1.9 Total Bilirubin 1.90 H AST 17 ALT 12 Alkaline Phosphatase 97 Troponin I < 3 NT-Pro-B Natriuret Pep 1187 H Total Protein 6.8 Albumin 4.3 Lipase 16 TSH Urine Color Yellow Urine Clarity Clear Urine pH 7.0 Ur Specific [place] 1.020 Urine Protein Negative Urine Ketones Negative Urine Blood Negative Urine Nitrite Negative Urine Bilirubin Negative Urine Urobilinogen 0.2 Ur Leukocyte Esterase Negative Urine Glucose Negative Digoxin 1.01 02/25/25 02/25/25 02/26/25 19:37 20:15 06:07 WBC 5.87 RBC 5.26 Hgb 15.8 Hct 45.8 MCV 87 MCH 30.0 MCHC 34.5 RDW 15.5 H Plt Count 197 MPV 10.8 Immature Gran % Neutrophils % Lymphocytes % Monocytes % Eosinophils % Basophils % Nucleated RBC % Absolute Neutrophils Absolute Lymphocytes Absolute Monocytes Absolute Eosinophils Absolute Basophils ESR PT INR APTT Sodium 147 H Potassium 3.8 Chloride 110 H Carbon Dioxide 26.2 Anion Gap 10.8 BUN 15 Creatinine 1.07 Est GFR (CKD-EPI 2020) 66.31 Glucose 95 Calcium 9.0 Magnesium Total Bilirubin 1.90 H AST 15 ALT 10 Alkaline Phosphatase 90 Troponin I < 3 < 3 NT-Pro-B Natriuret Pep Total Protein 6.5 Albumin 4.0 Lipase TSH 1.65 Urine Color Urine Clarity Urine pH Ur Specific [place] Urine Protein Urine Ketones Urine Blood Urine Nitrite Urine Bilirubin Urine Urobilinogen Ur Leukocyte Esterase Urine Glucose Digoxin PFSH All Active Problems (Updated 02/25/25 @ 21:56 by Fidel Houston MD) Dysphagia (Acute) Total bilirubin, elevated (Acute) Thyroiditis (Acute) Bradycardia (Acute) Pneumocephalus (Acute) TIA (transient ischemic attack) (Acute) Screening for cardiovascular condition (Acute) Epidermal inclusion cyst (Acute) IBS (irritable bowel syndrome) (Chronic ~10/2024) 10/26/24 GI Borborygmi (Acute ~10/2024) 10/26/24 [facility] GI Abdominal bloating (Acute ~10/2024) 10/26/24 [facility] GI - tests ordered Mass of subcutaneous tissue of back (Acute) Change in consistency of stool (Acute) Weakness (Acute) Low back pain (Acute) Atrial fibrillation (Chronic) Pain in both feet (Acute) Nail dystrophy (Acute) Onychomycosis (Acute) Impacted cerumen, bilateral (Acute) Hearing loss (Acute) Actinic keratoses (Acute) Tubular adenoma of colon (Acute) Positive WALTER (antinuclear antibody) (Acute) PVC (premature ventricular contraction) (Acute) Medical History History of cardioversion Traumatic rupture of biceps tendon Restless leg syndrome Gilbert's syndrome Bladder outlet obstruction Bladder stone Benign carcinoid tumor of appendix Venous insufficiency JUANCARLOS (obstructive sleep apnea) Obesity Nephrolithiasis Male stress incontinence Hypertension Esophageal reflux Diastolic heart failure Decreased hearing Cervical spondylosis BPH with urinary obstruction Bladder spasms Cervical spine disease Tachy-thaddeus syndrome Paroxysmal SVT (supraventricular tachycardia) Surgical History History of intestinal surgery Cecal resection H/O Spinal surgery Lumbar Hx of appendectomy Hx of cholecystectomy S/P TURP History of ureteroscopy Electrohydrodraulic lithotripsy of calculus of ureter History of esophagogastroduodenoscopy (EGD) H/O hemorrhoidectomy History of cataract surgery 11/2018 History of surgery Excision of cyst History of colonoscopy Family History Sister Cancer of kidney Diabetes Afib Mother Heart disease Afib Maternal Grandmother Heart disease Afib Social History Smoking/Tobacco Use Status: Never Second Hand Exposure: Yes Smoking risk assessment performed?: Yes Alcohol Intake: never Drug use: Never Substance use type: does not use Adopted: No Caregiver/Support person: No Foster care: No Household members: family Housing: house Number of Children: 0 number of grandchildren: 0 Communication Needs: Hard of Hearing and Corrective Lenses Education Level: high school Do you need help understanding health information?: Rarely current occupation: retired Pets and animals: Yes (1) Pets and animals: cat(s) Sexually active: No Do you think of yourself as: straight/heterosexual Current gender identity: male What is your relationship status?: never How often do you talk on the phone with friends or family?: three or more times per week How often do you get together with friends or relatives?: once per week Do you belong to any clubs or organized social groups?: no Panel score (0-1 are the most socially isolated patients): 1 What type of physical activity do you participate in: none Duration: < 15 minutes/day Frequency: 1-2 times per week Keeley/Sikhism: Gnosticist Special keeley needs: No Seatbelt use: always Helmet use: No Drive intox or ride w/intox recycler forklift driver truck driver: No Do you feel safe at home: Yes Do you feel safe in your relationship?: Yes Time Spent with Patient Time Spent with Patient: <45 minutes Time was spent: preparing to see the patient(eg.review tests), obtaining and/or reviewing separately otained hiistory, ordering medications,tests, procedures, referring, communicating with other health geriatric personal care aide, indepentently interpreting results, counseling the patient and care coordination
--- NOTE | 2025-02-28 13:50 | OTIE_ITS ---
Occupational Therapy Notes Inpatient Occupational Therapy Evaluation Date: 02/28/25 Referring Doctor: Dr. Arvizu OT Orders: Urgent Precautions: Fall, Standard, Full PATIENT PROFILE/ADMITTING DIAGNOSIS: Pt is a 80 year old male who is having some difficulty with his LE dressing at this time. OT was consulted for adaptive equipment needs to increase pts safety and overall functional (I) during his ADL/IADL routines. Past Medical History: All Active Problems (Updated 02/25/25 @ 21:56 by Fidel Houston MD) Dysphagia (Acute) Total bilirubin, elevated (Acute) Thyroiditis (Acute) Bradycardia (Acute) Pneumocephalus (Acute) TIA (transient ischemic attack) (Acute) Screening for cardiovascular condition (Acute) Epidermal inclusion cyst (Acute) IBS (irritable bowel syndrome) (Chronic ~10/2024) 10/26/24 [facility] GIBorborygmi (Acute ~10/2024) 10/26/24 [facility] GIAbdominal bloating (Acute ~10/2024) 10/26/24 [facility] GI - tests orderedMass of subcutaneous tissue of back (Acute) Change in consistency of stool (Acute) Weakness (Acute) Low back pain (Acute) Atrial fibrillation (Chronic) Pain in both feet (Acute) Nail dystrophy (Acute) Onychomycosis (Acute) Impacted cerumen, bilateral (Acute) Hearing loss (Acute) Actinic keratoses (Acute) Tubular adenoma of colon (Acute) Positive WALTER (antinuclear antibody) (Acute) PVC (premature ventricular contraction) (Acute) Medical History History of cardioversion Traumatic rupture of biceps tendon Restless leg syndrome Gilbert's syndrome Bladder outlet obstruction Bladder stone Benign carcinoid tumor of appendix Venous insufficiency JUANCARLOS (obstructive sleep apnea) Obesity Nephrolithiasis Male stress incontinence Hypertension Esophageal reflux Diastolic heart failure Decreased hearing Cervical spondylosis BPH with urinary obstruction Bladder spasms Cervical spine disease Tachy-thaddeus syndrome Paroxysmal SVT (supraventricular tachycardia) Surgical History History of intestinal surgery Cecal resectionH/O Spinal surgery LumbarHx of appendectomy Hx of cholecystectomy S/P TURP History of ureteroscopy Electrohydrodraulic lithotripsy of calculus of ureterHistory of esophagogastroduodenoscopy (EGD) H/O hemorrhoidectomy History of cataract surgery 11/2018History of surgery Excision of cystHistory of colonoscopy Social History/Home Situation: Pt reports that he is fairly (I) at baseline but has had difficulty with LE dressing prior. He notes that otherwise his baseline is (I) with his ADL/IADL routines. SUBJECTIVE: Pt was sitting in chair when OT arrived, he is agreeable to OT consult. OBJECTIVE: General Observation: Pleasant, IV in (R) UE Mental Status: A&Ox4 Pain: No c/o pain but he does report increased forward bend does seem to cause LBP. ROM: RUE AROM WFL L UE AROM WFL STRENGTH: RUE 4-/5 throughout globally LUE 4-/5 throughout globally FUNCTIONAL MOBILITY/ADLS: DRESSING OT educated and trained pt in LE adaptive equipment for dressing including dressing stick, sock aid and nuclear reactor operator. Pt was able to perform in the room today with min vc (I) and ideal technique. OT provided pt with this and we went over don and doffing (B) socks, donning underwear and sitting vs. standing techniques. BALANCE: Static sitting Normal Dynamic Sitting Normal Static Standing Normal Dynamic Standing Normal SPECIAL TESTS: Daily Activity Limitations Standardized Measure [facility] AM -PAC ?6 clicks? Daily Activity Inpatient Short Form: Raw score: 20 Standardized score: 42.03 CMS score: 38.32% INFORMED CONSENT/EDUCATION: Pt instructed in purpose of OT Consult and plan of care. ASSESSMENT: Patient is a 80-year-old male referred to occupational therapy services with diagnosis of assessment of LE dressing and need for adaptive equipment. Patient presents with clinical signs and symptoms consistent with dx. OT was consulted for LE dressing and need of adaptive equipment. Pt was able to tolerate this well with min vc. OT provided pt with adaptive equipment and will monitor this. Patient is assessed as a Low 85637 complexity based on the following: History: see above Examination: see functional limitations as noted above Presentation: evolving Decision Making: AMPAC score 20 GOALS N/A seen for OT consult only. PLAN OF CARE/TREATMENT PLAN: Seen for OT consult only. DISCHARGE RECOMMENDATIONS OT recommends that pt discharge home when medically cleared per MD. TREATMENT TIME/MINUTES/CODES [id number], 20 minutes [facility] [place], [place]
[2025-02-28] MEDS: Metoprolol CR 50 MG TABCR PO (14:07)
== END 2025-02-28 15:13 | disposition home or self-care (01) ==
LOC: ER 21:42 → MS 22:32
PROVIDERS: Admitting Provider Hospitalist; Emergency Provider Registered Nurse Emergency; PCP Family Medicine; Responsible Provider Family Medicine; Visit Provider Hospitalist
DX: G45.9 Transient cerebral ischemic attack, unspecified (principal); H53.2 Diplopia; I48.20 Chronic atrial fibrillation, unspecified; I50.30 Unspecified diastolic (congestive) heart failure; R00.1 Bradycardia, unspecified; I47.19 Other supraventricular tachycardia; E06.9 Thyroiditis, unspecified; Z79.01 Long term (current) use of anticoagulants; R13.10 Dysphagia, unspecified; E06.0 Acute thyroiditis; K58.9 Irritable bowel syndrome, unspecified; R53.1 Weakness; M54.50 Low back pain, unspecified; B35.1 Tinea unguium; G25.81 Restless legs syndrome; G47.33 Obstructive sleep apnea (adult) (pediatric); I87.8 Other specified disorders of veins; K21.9 Gastro-esophageal reflux disease without esophagitis; E80.6 Other disorders of bilirubin metabolism
CPT/HCPCS: 00123; 36415; 70496; 70498; 70553; 80053; 83690; 85027; 85652; 93005; 97110; 97161; 97165; 99285; 71046; 80162; 81003; 83735; 83880; 84443; 84484; 85025; 85610; 85730; 93010; 99223; 99233; 99239; G0378; J3490

== ENCOUNTER → 2025-03-02 09:19 | Outpatient (BNVA) | payer MEDICARE, SELFPAY | PROVIDERS: PCP Family Medicine; Referring Provider Family Medicine; Visit Provider Registered Nurse | DX: I48.11 Longstanding persistent atrial fibrillation (principal); I10 Essential (primary) hypertension; Z79.01 Long term (current) use of anticoagulants; Z79.02 Long term (current) use of antithrombotics/antiplatelets; Z79.899 Other long term (current) drug therapy | CPT/HCPCS: 99214 ==

== ENCOUNTER → 2025-03-23 11:02 | Outpatient (BNVA) | payer MEDICARE, SELFPAY | PROVIDERS: PCP Family Medicine; Referring Provider Family Medicine; Visit Provider Podiatrist | DX: L60.0 Ingrowing nail (principal); L60.3 Nail dystrophy; B35.1 Tinea unguium; M79.671 Pain in right foot; M79.672 Pain in left foot | CPT/HCPCS: 99213 ==